=== PATIENT | male | born 1955 | race Caucasian/White ===

== ENCOUNTER 2017-09-20 15:52 | Emergency (ER) | payer OTHER ==
[~2017-09-20] VITALS: Ht 188 cm; Wt 170.0 kg
[~2017-09-20 15:52] MED LIST: ASPCH81X PO; CALC500C70 PO; CLC100 PO; DLCS PR; FRRS300 PO; FURO20TA PO; HMLI SC; INSDGI SC; LSN5 PO; MULT-506 PO
[2017-09-20 16:30] VITALS: BP 185/83; TEMP 36.9; Ht 188 cm; Wt 170.0 kg
[2017-09-20] MEDS ORDERED: EXEN1INJ3 INJ (17:40)
[2017-09-20] MEDS ORDERED: ASPI81TA28 PO (17:40)
[2017-09-20] MEDS ORDERED: METF-384 PO (17:40)
[2017-09-20] MEDS ORDERED: CALC600C9 PO (17:40)
[2017-09-20] MEDS ORDERED: ACET-1256 PO (17:40)
[2017-09-20] MEDS ORDERED: PRVHFAIN INH (17:40)
[2017-09-20] MEDS ORDERED: INSU1INJ31 SC (17:40)
[2017-09-20] MEDS ORDERED: CLC100X PO (17:40)
[2017-09-20] MEDS ORDERED: ERGO500037 PO (17:40)
[2017-09-20] MEDS ORDERED: FLUT0.15 NAE (17:40)
[2017-09-20] MEDS ORDERED: INSU1SOL SC (17:40)
[2017-09-20] MEDS ORDERED: LPT20 PO (17:40)
[2017-09-20] MEDS ORDERED: LISI40TA PO (17:40)
--- NOTE | 2017-09-20 17:49 | DIAGNOSTIC IMAGING REPORT ---
KUB HISTORY: eval for foreign body; insulin needle COMPARISON: None. FINDINGS: The bowel gas pattern is unremarkable. There are no dilated loops of small bowel to suggest an obstruction. No renal calculi. No ureteral calculi. No pneumoperitoneum or pneumatosis. No radiopaque foreign bodies identified. IMPRESSION: No radiopaque foreign bodies. Electronically signed by: Kirby Azul M.D. 09/20/2017 5:48 PM Dictated Date/Time: 09/20/2017 5:41 PM
[2017-09-20 18:19] VITALS: PULSE 104; O2SAT 96
--- NOTE | 2017-09-21 10:44 | EMERGENCY ROOM VISIT NOTE ---
ED Visit Note First contact with patient: 16:38 Chief Complaint: I think I have a insulin needle stuck in my stomach. History of Present Illness: Mr. Storm is a 62-year-old white male who is brought into the ED via wheelchair complaining of a possible needle foreign body in his abdominal wall. Patient reports approximately one hour before he arrived in the emergency department he was self injecting himself with insulin with an insulin pen. He reports he noted that the needle was bent so he strained it out and then injected himself. He then noted that when he withdrew the needle it was not on the end of the syringe. He reached down and thought he felt the needle but then later when he checked he could not find the needle. Currently he has no complaints related to this incident. He denies any abdominal pain, bleeding, signs of infection. Review of Systems: As noted above in history of present illness. Past Medical History: Coronary artery disease, diabetes, diabetic neuropathy, kidney disease, hypertension, chronic venous insufficiency, sleep apnea. Current Medications: Medications Dose Route/Sig Max Daily Dose Days Date Category Dose Instructions Tylenol (Acetaminophen) 500 Mg Tab 1,000 Mg PO TID PRN 09/20/17 Reported Flonase Allergy Relief (Fluticasone Propionate (Nasal)) 50 Mcg/Act Spr 2 Sprays NORMA DAILY 09/20/17 Reported Ventolin Hfa (Albuterol) 60 Puffs/5400 Mcg Aers 1 Puff INH QID 09/20/17 Reported Bydureon (Exenatide) 2 Mg Inj 2 Mg INJ WK 09/20/17 Reported Prinivil (Lisinopril) 40 Mg Tab 40 Mg PO QAM 09/20/17 Reported Vitamin D 62838 Unit (Ergocalciferol) 50,000 Unit Cap 50,000 Unit PO WK 09/20/17 Reported Glucophage (Metformin Hcl) 1,000 Mg Tab 1,000 Mg PO BIDM 09/20/17 Reported Lipitor (Atorvastatin Calcium) 20 Mg Tab 20 Mg PO HS 09/20/17 Reported Humulin R U-500 Kwikpen (Insulin Regular (Human)) 500 Unit/Ml Devora Unknown Dose SC DIRECTED 09/20/17 Reported UP TO 300 UNITS/DAY DIRECTED. Docusate Sodium 100 Mg Cap 100 Mg PO BID 09/20/17 Reported Calcium/Vitamin D 600-200 mg-Unit (Calcium Carbonate-Vitamin D) 1 Cap Cap 1 Tab PO DAILY 09/20/17 Reported Aspirin Ec (Aspirin) 81 Mg Tab 81 Mg PO QAM 09/20/17 Reported Humalog Kwikpen (Insulin Lispro (Human)) 200 Unit/Ml Inj Unknown Dose SC ACHS 09/20/17 Reported SLIDING SCALE UP TO 90 UNITS/DAY. Lasix (Furosemide) 20 Mg Tab 20 Mg PO DAILY 90 03/01/15 Reported Multivitamin (Multivitamins) Tab 1 Tab PO DAILY 02/11/10 Reported Allergies to Medications: Ceftriaxone, lidocaine. Social History: Patient is not employed; he feels safe in his home environment; he denies current tobacco use. Physical Examination: Vital Signs: Date Time Temp Pulse Resp B/P (MAP) Pulse Ox O2 Delivery O2 Flow Rate FiO2 09/20/17 18:19 104 16 96 09/20/17 16:30 36.9 109 22 185/83 94 Room Air GENERAL: 62-year-old male in no acute distress, chronically ill-appearing, afebrile and hemodynamically stable. NEUROLOGICAL: Awake, alert and oriented to person, place and time. Answering questions appropriately and following commands. SKIN: Warm, dry and pink. No soft tissue eruptions or trauma noted. ABDOMEN: Obese, soft and nontender. No palpable foreign bodies. Positive bowel sounds in all quadrants. No guarding, rigidity or organomegaly. ED Course: Patient is assessed as noted above. Patient's medication list was reviewed. KUB X-Rays: Were read by myself and the radiologist showing a nonspecific bowel gas pattern with no signs of obstruction. No foreign bodies identified. Patient's case was reviewed with Dr. Maldonado; we agreed on diagnostic approach , treatment, disposition and plan per Patient was educated about today's findings and instructed on his treatment plan ; he verbalizes understanding and agreement with this plan. Clinical Impression: Evaluation for abdominal wall foreign body. Disposition: Patient discharged home in stable condition; prior to departure he was reassessed and continued to be pain and symptom-free. Plan: Patient is encouraged to his current medications. Patient was encouraged to watch for infection. Patient was encouraged to follow-up with family physician as needed. Patient was encouraged return ED for any signs of infection, abdominal pain or any new/concerning symptoms.
== END 2017-09-20 18:20 | disposition home or self-care (01) ==
LOC: C.EDB 15:53 → C.EDD 18:20
DX: Z04.3 Encounter for examination and observation following other accident (principal); I25.10 Atherosclerotic heart disease of native coronary artery without angina pectoris; E11.40 Type 2 diabetes mellitus with diabetic neuropathy, unspecified; Z79.84 Long term (current) use of oral hypoglycemic drugs; Z79.4 Long term (current) use of insulin; Z79.82 Long term (current) use of aspirin; I10 Essential (primary) hypertension; Z79.899 Other long term (current) drug therapy

== ENCOUNTER 2019-05-26 12:35 | Inpatient (IN) ==
--- OUTSIDE RECORDS SUMMARY | 2019-05-26 12:40 | External Medical Summary | Continuity of Care Document ---
:1955 Author Name Baldomero Rand Address Unavailable Unavailable , Care Team Providers Name Role Phone Tone Rand SMonica Unavailable [email or web address] Katina LEE Unavailable Unavailable Unavailable Unavailable Unavailable Problems Active medical history not documented Allergies and Adverse Reactions Allergy history not documented Medications Medications not documented Procedures Procedures not documented Immunizations Immunizations not documented Plan of Treatment Planned Observations Planned Goals not documented Results No Known Results Results not documented
[2019-05-26] MEDS ORDERED: ALBUT/IPRATROP 3MG/0.5MG NEB 3 ML VIAL NEB STA (13:21)
--- NOTE | 2019-05-26 13:38 | XRay Report ---
XR chest 1V portable CLINICAL HISTORY: Dyspnea. COMPARISON STUDY: Chest radiograph October 16, 2011. FINDINGS: There is no pneumothorax. There are suspected small bilateral pleural effusions. Right basi lar opacity favors atelectasis. Interstitial thickening favors pulmonary edema. Mild cardiomegaly is noted. Mediastinal contours are otherwise normal. There is no pneumothorax. IMPRESSION: 1. Interstitial thickening suggestive of mild pulmonary edema. 2. Small bilateral pleural effusions with bibasilar opacities favor atelectasis. Radiographic follow- up to ensure resolution is recommended. 2. Mild cardiomegaly. Electronically signed by: Saji Dunham M.D. 05/26/2019 1:36 PM
[2019-05-26 14:34] LABS: Alanine Aminotransferase 20 U/L (12-78); Albumin Level 3.2 gm/dl (3.4-5.0); Aspartate Aminotransferase 46 U/L (15-37); BUN Creatinine Ratio 13.2 (10-20); Basophils # (auto) 0.02 K/uL (0-0.2); Basophils % (auto) 0.2 %; Blood Urea Nitrogen 17 mg/dl (7-18); Calcium 9.1 mg/dl (8.5-10.1); Carbon Dioxide 25 mmol/L (21-32); Chloride 105 mmol/L (98-107); Eosinophils # (auto) 0.02 K/uL (0-0.5); Eosinophils % (auto) 0.2 %; Est GFR (African American) 70.2; Est GFR (Non-African American) 60.6; Glucose 136 mg/dl (70-99); Hematocrit (blood only) 45.8 % (42-52); Hemoglobin 15.1 g/dL (14.0-18.0); Immature Granulocytes # (auto) 0.03 K/uL (0.00-0.02); Immature Granulocytes % (auto) 0.2 %; Lymphocytes # (auto) 1.72 K/uL (1.2-3.4); Lymphocytes % (auto) 14.1 %; Mean Corpuscular Hemoglobin 28.8 pg (25-34); Mean Corpuscular Volume 87.4 fL (80-100); Mean Platelet Volume 12.3 fL (7.4-10.4); Monocytes # (auto) 1.02 K/uL (0.11-0.59); Monocytes % (auto) 8.3 %; Neutrophils # (auto) 9.41 K/uL (1.4-6.5); Platelet Count 164 K/uL (130-400); RDW Coefficient of Variation 13.7 % (11.5-14.5); RDW Standard Deviation 43.7 fL (36.4-46.3); Red Blood Count 5.24 M/uL (4.7-6.1); Sodium 138 mmol/L (136-145); White Blood Count 12.22 K/uL (4.8-10.8)
[2019-05-26 14:47] LABS: Albumin Globulin Ratio 0.9 (0.9-2); Alkaline Phosphatase 94 U/L (45-117); Bilirubin,Total 0.9 mg/dl (0.2-1); Globulin 3.7 gm/dl (2.5-4.0); NT Pro B Type Natriuretic Pept 1509 pg/ml (0-900); Total Protein 6.9 gm/dl (6.4-8.2)
[2019-05-26] MEDS ORDERED: ASPIRIN 81 MG CHEW PO STA (14:59)
[2019-05-26 15:20] LABS: INR 1.1 (0.9-1.1); Prothrombin Time 10.9 Seconds (9.0-12.0)
--- NOTE | 2019-05-26 15:21 | Emergency Department Note ---
ED Visit Note The patient was seen and examined with Dana Chatterjee PA-C. I agree with the history, physical and findings. Please see the note for disposition and details. Patient has intermittent breathing issues. His ECG is abnormal. The patient's troponin is elevated to 7. CT PE study was performed. .
[2019-05-26] MEDS ORDERED: OPTIRAY 320 125ml IV PRN (16:24)
[2019-05-26] MEDS ORDERED: HEPARIN SOD (PORCINE) 1000 UNIT/ML 10 ML VIAL IV ONE (16:30)
--- NOTE | 2019-05-26 16:34 | CT Scan Report ---
CT ANGIOGRAM OF THE CHEST CLINICAL HISTORY: shortness of breath, elevated troponin COMPARISON STUDY: Chest x-ray dated 05/26/2019 TECHNIQUE: Following the IV administration of 118 mL of Optiray-320, CT angiogram of the thorax was p erformed from the thoracic inlet to the lung bases utilizing the pulmonary embolus protocol. Images a re reviewed in the axial, sagittal, and coronal planes. IV contrast was administered without complica tion. MIP imaging was performed. A dose lowering technique was utilized adhering to the principles o f ALARA. CT DOSE: 925.11 mGy.cm FINDINGS: There are multiple mildly enlarged mediastinal lymph nodes. There is no pathologic hilar adenopathy. There was no evidence of thoracic aortic dilatation. There were no pulmonary artery filling defects to indicate acute pulmonary embolism. There are [id number] bilateral pleural effusions. There are dependent airspace opacities, likely representing compressive atelectasis. IMPRESSION: 1. No evidence of acute pulmonary embolism. 2. [id number] bilateral pleural effusions. Associated dependent airspace opacities, likely ate lectatic. 3. Mildly enlarged mediastinal lymph nodes. Electronically signed by: Pablo Moreno M.D. 05/26/2019 4:33 PM
[2019-05-26] MEDS ORDERED: FUROSEMIDE 40 MG/4 ML VIAL IV STA (17:00)
[2019-05-26] MEDS: HEPARIN SODIUM/DEXTROSE 25,000 UNITS/500 ML BAG IV SCH ×3 (17:11→21:00)
[2019-05-26 17:32] LABS: Partial Thromboplastin Ratio 1.1; Partial Thromboplastin Time 30.5 Seconds (21.0-31.0)
--- NOTE | 2019-05-26 17:37 | Emergency Department Note ---
History of Present Illness General Chief complaint: Shortness of Breath/Dyspnea Stated complaint: EXTREME SOB Source: patient Mode of arrival: ambulatory Limitations: no limitations History of Present Illness This patient is a 63-year-old male with past medical history of diabetes mellitus and right BKA who presents the emergency department for evaluation of shortness of breath. Patient states that he has been having some trouble breath ing at times for the past few years. He states he has had some episodes of shortness of breath when he is exerting himself, for example when he is getting into his van to go to an appointment. The patient is fairly wheelchair dependent due to a right BKA and left chronic diabetic wound. He states that he typically only gets out of the wheelchair to go somewhere or transfer to the bathroom. The patient does have an intermittent cough. He has been using a Ventolin inhaler and Flonase nasal spray. He also reports some sneezing with clear mucus. Patient also states he has been bloated recently and has had a decreased appetite. He is on MiraLAX for constipation. Patient admits that recently, he had a few weeks where he was not taking his medications due to his sons not filling his prescription packs. He has neuropathy and has difficulty opening the bottles. He states that he is taking his medications now. He takes 20 mg of Lasix daily and occasionally doubles this when he feels he needs it. Patient has seen a welt sewer several years ago but denies any cardiac history. He states that the primary reason he is here today is because he has had shortness of breath and an upset stomach for the past 2 days. He called the primary care provider's office today and they told him to come here because it sounded like he was short of breath on the phone. He denies chest pain, fevers or vomiting. He does not regularly weigh himself. Home Medications Home Medications Medication Instructions Recorded Confirmed Type Humulin R U-500 (Conc) Insulin 85 unit SUBCUT TID 05/26/19 05/26/19 History albuterol sulfate [Ventolin HFA] 2 puff INHALATION QID PRN 05/26/19 05/26/19 History aspirin 81 mg PO DAILY 05/26/19 05/26/19 History docusate sodium 100 mg PO BID 05/26/19 05/26/19 History ergocalciferol (vitamin D2) 50,000 unit PO WK 05/26/19 05/26/19 History [Vitamin D2] insulin lispro [Humalog KwikPen 0 unit SUBCUT UD 05/26/19 05/26/19 History Insulin] lisinopril 40 mg PO DAILY 05/26/19 05/26/19 History multivitamin 1 tab PO DAILY 05/26/19 05/26/19 History atorvastatin 40 mg PO QAM 30 Days #30 tab 05/27/19 Rx metoprolol tartrate 25 mg PO BID 30 Days #60 tab 05/27/19 Rx Allergies Allergy/AdvReac Type Severity Reaction Status Date / Time ceftriaxone Allergy Severe ANAPHYLAXIS Verified 05/26/19 14:46 lidocaine Allergy Severe ANAPHYLAXIS Verified 05/26/19 14:46 -BRADYCARDI A Past Med/Surg History Medical History Morbid obesity (Chronic) Charcot ankle (Chronic) CKD (chronic kidney disease), stage III (Chronic) Diabetes mellitus, type II (Chronic) Dyslipidemia (Chronic) HTN (hypertension) (Chronic) Type 2 diabetes mellitus Surgical History History of right below knee amputation (Chronic) Below knee amputation Family History Other Cancer Coronary heart disease Diabetes Social History Preferred Language: [place] Citizen Communication Ability: Effective 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 Beliefs That Will Affect Care: None marital status: Current Living Situation: Family Other Information That Helps Us Care for You: No Feels Safe at Home: Yes Safety Concerns: Feels Safe At This Time Smoking Status: Never smoker Tobacco Type: smokeless tobacco ; Do You Dip or Chew Tobacco: Yes ; Second Hand Exposure: No ; Tobacco Cessation Education Requested by Patient: No Hx Alcohol Use: No Hx Substance Use: No Review of Systems A total of 10 systems reviewed and were otherwise negative Physical Exam Vital Signs Vital Signs - 24 hr 05/26/19 13:33 05/26/19 14:09 05/26/19 14:38 Pulse Rate [Left Finger] 89 Pulse Rhythm [Left Finger] Regular Respiratory Rate 18 20 Respiratory Effort / Characteristics Non-Labored Spontaneous Non-Labored Respiratory Depth Normal Respiratory Pattern Regular Blood Pressure [Right Arm] 149/94 H Blood Pressure Mean [Right Arm] 112 Pulse Oximetry 94 94 92 Oxygen Delivery Method Room Air Room Air Room Air 05/26/19 16:00 05/26/19 17:23 Pulse Rate [Left Finger] 82 86 Pulse Rhythm [Left Finger] Respiratory Rate 15 20 Respiratory Effort / Characteristics Non-Labored Non-Labored Respiratory Depth Normal Normal Respiratory Pattern Regular Regular Blood Pressure [Right Arm] 153/90 H 130/76 Blood Pressure Mean [Right Arm] 111 94 Pulse Oximetry 93 95 Oxygen Delivery Method Room Air Room Air VITALS: Vitals are noted on the nurse's note and reviewed by myself. Vital signs stable. GENERAL: This is a 63-year-old obese male, in no acute distress. Patient is sitting up in his wheelchair at bedside. SKIN: The skin was warm and dry, without rashes. HEAD: Normocephalic atraumatic. EARS: External auditory canals clear, tympanic membranes pearly anderson without erythema or effusion bilaterally. EYES: Pupils equal round and reactive to light and accommodation. NOSE: Patent, turbinates without inflammation or discharge. MOUTH: Mucous membranes moist. Tonsils are not enlarged. Pharynx without erythema or exudate. NECK: Supple without nuchal rigidity. No lymphadenopathy. HEART: Regular rate and rhythm without murmurs gallops or rubs. LUNGS: Decreased breath sounds bilateral bases. No wheezing. ABDOMEN: Positive bowel sounds x 4. Soft, nontender to palpation. EXTREMITIES: Right lower leg prosthetic. Left lower leg in a Cam boot. NEURO: Patient was alert and oriented to person place and time. Course Consultations Consultation #1: Lucila Rowan PA-C - [facility] hospitalist Consultation #2: Dr. Estrella - cardiology Dr. Estrella recommended adding 40 mg IV Lasix and agreed with continuing the Heparin drip. Administered Medications Discontinued Medications Acetaminophen (Tylenol) 650 mg PO Q4H PRN PRN Reason: Pain or Fever Stop: 06/25/19 19:33 Last Admin: 05/27/19 05:04 Dose: 650 mg Documented by: [id number] Admin: 05/26/19 21:32 Dose: 650 mg Documented by: [id number] Albuterol (Duoneb) 3 ml NEB NOW STA Stop: 05/26/19 13:22 Last Admin: 05/26/19 13:31 Dose: Not Given Documented by: [id number] Albuterol (Ventolin 0.083% 2.5mg/3ml) 2.5 mg NEB Q6R PRN PRN Reason: Shortness Of Breath Or Wheezing Stop: 06/25/19 19:33 Last Admin: 05/26/19 21:06 Dose: 2.5 mg Documented by: [id number] Aspirin (Aspirin Chew) 162 mg PO NOW STA Stop: 05/26/19 15:00 Last Admin: 05/26/19 15:27 Dose: 162 mg Documented by: [id number] Aspirin (Ecotrin Ectab) 81 mg PO DAILY MCKAYLA Stop: 06/26/19 08:59 Last Admin: 05/27/19 08:49 Dose: 81 mg Documented by: [id number] Atorvastatin Calcium (Lipitor) 20 mg PO HS MCKAYLA Stop: 06/25/19 20:59 Last Admin: 05/26/19 20:56 Dose: 20 mg Documented by: [id number] Atorvastatin Calcium (Lipitor) 40 mg PO QAM MCKAYLA Stop: 06/26/19 15:44 Last Admin: 05/27/19 16:22 Dose: 40 mg Documented by: [id number] Bismuth Subsalicylate (Pepto-Bismol) 30 ml PO Q6H PRN PRN Reason: Diarrhea Stop: 06/26/19 05:37 Last Admin: 05/27/19 05:52 Dose: 30 ml Documented by: [id number] Dextrose (Dextrose 50%) 25 - 50 ml IV UD PRN; Protocol PRN Reason: Hypoglycemia Protocol Stop: 06/25/19 19:33 Last Admin: 05/27/19 06:21 Dose: 50 ml Documented by: [id number] Docusate Sodium (Colace) 100 mg PO BID MCKAYLA Stop: 06/25/19 20:59 Last Admin: 05/27/19 08:48 Dose: Not Given Documented by: [id number] Admin: 05/26/19 20:55 Dose: 100 mg Documented by: [id number] Furosemide (Lasix) 40 mg IV NOW STA Stop: 05/26/19 17:01 Last Admin: 05/26/19 19:09 Dose: 40 mg Documented by: [id number] Furosemide (Lasix) Confirm Administered Dose 40 mg IV .STK-MED ONE Stop: 05/26/19 19:08 Last Admin: 05/26/19 20:04 Dose: Not Given Documented by: [id number] Heparin Sodium (Porcine) (Heparin Iv Bolus) 10,000 units IV NOW ONE Stop: 05/26/19 16:31 Last Admin: 05/26/19 17:11 Dose: 10,000 units Documented by: [id number] Cosigned by: [id number] Heparin Sodium/Dextrose () 1 ea IV NOW STA; Protocol Stop: 05/26/19 15:00 Last Admin: 05/26/19 17:11 Dose: Not Given Documented by: [id number] Heparin Sodium/Dextrose () 1 ea IV Q30M MCKAYLA; Protocol Stop: 05/26/19 23:00 Last Admin: 05/26/19 20:13 Dose: Not Given Documented by: [id number] Admin: 05/26/19 20:13 Dose: Not Given Documented by: [id number] Heparin Sodium/Dextrose (Heparin Sodium/Dextrose) 25,000 units in 500 mls @ 44 mls/hr IV .[id number] MCKAYLA; Protocol Stop: 06/25/19 14:59 Last Titration: 05/26/19 21:01 Dose: 0 units/hr, 0 mls/hr Documented by: [id number] Cosigned by: [id number] Admin: 05/26/19 19:31 Dose: 2,200 units/hr, 44 mls/hr Documented by: [id number] Cosigned by: [id number] Titration: 05/26/19 19:31 Dose: 2,200 units/hr, 44 mls/hr Documented by: [id number] Cosigned by: [id number] Admin: 05/26/19 17:11 Dose: 2,200 units/hr, 44 mls/hr Documented by: [id number] Cosigned by: [id number] Furosemide 20 mg/ Syringe 2 mls @ 4 mls/min IV ONE ONE Stop: 05/27/19 09:01 Last Admin: 05/27/19 08:48 Dose: 4 mls/min Documented by: [id number] Heparin Sodium/Dextrose (Heparin Sodium/Dextrose) 25,000 units in 500 mls @ 39 mls/hr IV .[id number] MCKAYLA; Protocol Stop: 06/25/19 19:33 Last Titration: 05/27/19 08:12 Dose: 1,950 units/hr, 39 mls/hr Documented by: [id number] Cosigned by: [id number] Titration: 05/27/19 07:14 Dose: 1,950 units/hr, 39 mls/hr Documented by: [id number] Cosigned by: [id number] Admin: 05/27/19 06:04 Dose: 1,950 units/hr, 39 mls/hr Documented by: [id number] Cosigned by: [id number] Titration: 05/27/19 06:04 Dose: 1,950 units/hr, 39 mls/hr Documented by: [id number] Cosigned by: [id number] Titration: 05/27/19 00:53 Dose: 1,950 units/hr, 39 mls/hr Documented by: [id number] Cosigned by: [id number] Titration: 05/26/19 23:42 Dose: 0 units/hr, 0 mls/hr Documented by: [id number] Cosigned by: [id number] Titration: 05/26/19 23:40 Dose: 1,950 units/hr, 39 mls/hr Documented by: [id number] Cosigned by: [id number] Titration: 05/26/19 23:03 Dose: 2,200 units/hr, 44 mls/hr Documented by: [id number] Cosigned by: [id number] Admin: 05/26/19 21:00 Dose: 2,200 units/hr, 44 mls/hr Documented by: [id number] Cosigned by: [id number] Insulin Human Regular 60 units (/ Syringe) 0.12 mls @ 0 mls/sec SC TODAY@2100 ONE Stop: 05/26/19 21:01 Last Admin: 05/26/19 20:58 Dose: 1 mls/sec Documented by: [id number] Cosigned by: [id number] Influenza Virus Vaccine Quadrival (Flucelvax Quad Vaccine) 0.5 ml IM .ONCE ONE Stop: 05/27/19 09:01 Last Admin: 05/27/19 13:15 Dose: Not Given Documented by: [id number] Insulin Aspart (Novolog Flexpen) 0 units SC ACHS MCKAYLA; Protocol Stop: 06/25/19 20:59 Last Admin: 05/26/19 21:00 Dose: 4 units Documented by: [id number] Cosigned by: [id number] Insulin Aspart (Novolog Flexpen) 0 units SC Q4 MCKAYLA; Protocol Stop: 06/26/19 07:59 Last Admin: 05/27/19 12:02 Dose: Not Given Documented by: [id number] Cosigned by: [id number] Admin: 05/27/19 08:11 Dose: Not Given Documented by: [id number] Cosigned by: [id number] Insulin Human NPH (Novolin N U-100 Nph Per Unit) 50 units SQ ONE ONE; Protocol Stop: 05/27/19 16:01 Last Admin: 05/27/19 15:57 Dose: 50 units Documented by: [id number] Cosigned by: [id number] Ioversol (Optiray 320 125ml) 118 ml IV ONCE PRN PRN Reason: Interaction Checking Stop: 05/30/19 16:23 Last Admin: 05/26/19 16:24 Dose: 118 ml Documented by: [id number] Lisinopril (Zestril) 40 mg PO DAILY MCKAYLA Stop: 06/26/19 08:59 Last Admin: 05/27/19 08:49 Dose: 40 mg Documented by: [id number] Menthol (Nice) 1 joselo BUCCAL NOW STA Stop: 05/26/19 18:11 Last Admin: 05/26/19 20:56 Dose: 1 joselo Documented by: [id number] Menthol (Nice) Confirm Administered Dose 24 joselo BUCCAL .STK-MED ONE Stop: 05/26/19 18:14 Last Admin: 05/26/19 18:15 Dose: 24 joselo Documented by: [id number] Metoprolol Tartrate (Lopressor) 25 mg PO BID MCKAYLA Stop: 06/26/19 15:09 Last Admin: 05/27/19 16:23 Dose: 25 mg Documented by: [id number] Multivitamins (Multivitamin Tab) 1 tab PO DAILY MCKAYLA Stop: 06/26/19 08:59 Last Admin: 05/27/19 08:49 Dose: 1 tab Documented by: [id number] Pneumococcal Polyvalent Vaccine (Pneumovax-23) 25 mcg IM .ONCE ONE Stop: 05/27/19 09:01 Last Admin: 05/27/19 13:15 Dose: Not Given Documented by: [id number] Sennosides (Senokot) 8.6 mg PO BID MCKAYLA Stop: 06/26/19 08:59 Last Admin: 05/27/19 08:48 Dose: Not Given Documented by: [id number] Medical Decision Making Differential Diagnosis Differential diagnosis includes acute coronary syndrome, pulmonary embolism, pneumothorax, CHF, COPD exacerbation, pneumonia, among others. Medical Records Attestation: I reviewed the patient's medical records. Outside [facility] records reviewed Home Medications Current Medication List: was personally reviewed by me Laboratory Data Attestation: I reviewed the patient's lab results. Result diagrams: 05/27/19 01:40 05/27/19 12:28 Lab Results 05/26/19 05/26/19 05/26/19 Range/Units 13:45 13:50 13:50 WBC 12.22 H (4.8-10.8) K/uL RBC 5.24 (4.7-6.1) M/uL Hgb 15.1 (14.0-18.0) g/dL Hct 45.8 (42-52) % MCV 87.4 (80-100) fL MCH 28.8 (25-34) pg MCHC 33.0 (32-36) g/dL RDW Std Deviation 43.7 (36.4-46.3) fL RDW Coeff of Yonis 13.7 (11.5-14.5) % Plt Count 164 (130-400) K/uL MPV 12.3 H (7.4-10.4) fL Immature Gran % (Auto) 0.2 % Neut % (Auto) 77.0 % Lymph % (Auto) 14.1 % [place] % (Auto) 8.3 % Eos % (Auto) 0.2 % Baso % (Auto) 0.2 % Immature Gran # (Auto) 0.03 H (0.00-0.02) K/uL Neut # (Auto) 9.41 H (1.4-6.5) K/uL Lymph # (Auto) 1.72 (1.2-3.4) K/uL [place] # (Auto) 1.02 H (0.11-0.59) K/uL Eos # (Auto) 0.02 (0-0.5) K/uL Baso # (Auto) 0.02 (0-0.2) K/uL PT (9.0-12.0) Seconds INR (0.9-1.1) APTT (21.0-31.0) Seconds PTT Ratio Sodium 138 (136-145) mmol/L Potassium 4.0 (3.5-5.1) mmol/L Chloride 105 (98-107) mmol/L Carbon Dioxide 25 (21-32) mmol/L Anion Gap 9.0 (3-11) BUN 17 (7-18) mg/dl Creatinine 1.27 (0.6-1.4) mg/dl Est Cr Clr Drug Dosing Not Reportable Est GFR ( Amer) 70.2 Est GFR (Non-Af Amer) 60.6 BUN/Creatinine Ratio 13.2 (10-20) Glucose 136 H (70-99) mg/dl Calcium 9.1 (8.5-10.1) mg/dl Total Bilirubin 0.9 (0.2-1) mg/dl AST 46 H (15-37) U/L ALT 20 (12-78) U/L Alkaline Phosphatase 94 (45-117) U/L Troponin I 7.010 H* (0-0.045) ng/ml NT-Pro-B Natriuret Pep 1509 H (0-900) pg/ml Total Protein 6.9 (6.4-8.2) gm/dl Albumin 3.2 L (3.4-5.0) gm/dl Globulin 3.7 (2.5-4.0) gm/dl Albumin/Globulin Ratio 0.9 (0.9-2) Procalcitonin (0-0.5) ng/ml Influenza Type A Ag Neg for Influ A (Neg) Influenza Type B Ag Neg for Influ B (Neg) 05/26/19 05/26/19 05/26/19 Range/Units 13:50 13:50 13:50 WBC (4.8-10.8) K/uL RBC (4.7-6.1) M/uL Hgb (14.0-18.0) g/dL Hct (42-52) % MCV (80-100) fL MCH (25-34) pg MCHC (32-36) g/dL RDW Std Deviation (36.4-46.3) fL RDW Coeff of Yonis (11.5-14.5) % Plt Count (130-400) K/uL MPV (7.4-10.4) fL Immature Gran % (Auto) % Neut % (Auto) % Lymph % (Auto) % [place] % (Auto) % Eos % (Auto) % Baso % (Auto) % Immature Gran # (Auto) (0.00-0.02) K/uL Neut # (Auto) (1.4-6.5) K/uL Lymph # (Auto) (1.2-3.4) K/uL [place] # (Auto) (0.11-0.59) K/uL Eos # (Auto) (0-0.5) K/uL Baso # (Auto) (0-0.2) K/uL PT 10.9 (9.0-12.0) Seconds INR 1.1 (0.9-1.1) APTT 30.5 (21.0-31.0) Seconds PTT Ratio 1.1 Sodium (136-145) mmol/L Potassium (3.5-5.1) mmol/L Chloride (98-107) mmol/L Carbon Dioxide (21-32) mmol/L Anion Gap (3-11) BUN (7-18) mg/dl Creatinine (0.6-1.4) mg/dl Est Cr Clr Drug Dosing Est GFR ( Amer) Est GFR (Non-Af Amer) BUN/Creatinine Ratio (10-20) Glucose (70-99) mg/dl Calcium (8.5-10.1) mg/dl Total Bilirubin (0.2-1) mg/dl AST (15-37) U/L ALT (12-78) U/L Alkaline Phosphatase (45-117) U/L Troponin I (0-0.045) ng/ml NT-Pro-B Natriuret Pep (0-900) pg/ml Total Protein (6.4-8.2) gm/dl Albumin (3.4-5.0) gm/dl Globulin (2.5-4.0) gm/dl Albumin/Globulin Ratio (0.9-2) Procalcitonin 0.09 (0-0.5) ng/ml Influenza Type A Ag (Neg) Influenza Type B Ag (Neg) Imaging Data Attestation: I personally reviewed and interpreted this imaging study as follows: Radiologist's Impression: XR chest 1V portable IMPRESSION: 1. Interstitial thickening suggestive of mild pulmonary edema. 2. Small bilateral pleural effusions with bibasilar opacities favor atelectasis. Radiographic follow-up to ensure resolution is recommended. 2. Mild cardiomegaly. CT ANGIOGRAM OF THE CHEST IMPRESSION: 1. No evidence of acute pulmonary embolism. 2. [id number] bilateral pleural effusions. Associated dependent airspace opacities, likely atelectatic. 3. Mildly enlarged mediastinal lymph nodes. ECG Data Attestation: I personally reviewed and interpreted this ECG as follows: Indication: SOB/dyspnea Rate (beats per minute): 82 Rhythm: normal sinus Findings: + LBBB, + PAC and + ST depression (Inferior) Comparison ECG Date: from (2011) Change: the following changes noted (new LBBB) Blood Pressure Blood Pressure Findings: Elevated blood pressure Blood Pressure Disposition: elevated BP felt to be situational MDM Narrative The patient is a 63-year-old male who presents today complaining of shortness of breath. Patient has been having intermittent shortness of breath for some time. He apparently had an episode more severe symptoms this morning. He is not significantly symptomatic on arrival to the emergency department. Chest x-ray shows some pulmonary edema. Labs revealed no leukocytosis or concerning anemia. Troponin was found to be significantly elevated at 7.01. BNP elevated at 1509. CT of the chest was performed and shows no evidence of PE. Patient reevaluated multiple times and at no time had any chest pain or acute symptoms while at the emergency department. His EKG does show a new left bundle branch block, however the most recent comparison is from 2011. The case was discussed with the welt sewer on-call, who recommended adding a dose of Lasix. The case was then discussed with the [facility]ist service to evaluate the patient for further care. The patient was independently evaluated by Dr. Chapa, who agreed with my assessment and treatment plan. Impression & Plan NSTEMI (non-ST elevated myocardial infarction), LBBB (left bundle branch block), Shortness of breath Critical Care Time Critical Care Time: Yes Total Critical Care Time: 40 I have personally spent greater than 40 minutes of critical care time in the direct management of this patient. This includes bedside care, interpretation of diagnostic studies, and testing, discussion with consultants, patient, and family members, and other required patient management activities. This 40 minutes is in excess of all separately billable procedures. Discharge Plan Visit Data *Final* Discharge Date/Time: 05/26/19 19:00 Chief Complaint: Shortness of Breath/Dyspnea Stated Complaint: EXTREME SOB ED Provider: Maciejczyk,Jj F ED Midlevel Provider: Dana Chatterjee Discharge Problem: NSTEMI (non-ST elevated myocardial infarction), LBBB (left bundle branch block), Shortness of breath Patient Disposition: Admitted As Inpatient Condition: Fair Discharge Instructions Interventions: ED Discharge Assessment Last Done: 05/26/19 19:00
--- NOTE | 2019-05-26 18:04 | History & Physical Report ---
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 Reports cough sometimes productive of clear sputum x several months. Patient reports some orthopnea past several days, denies any PND, fever or chills. No current CP and no Current SOB. Reports CP and upper body pain after falling asleep in wheelchair 2 days ago that resolved with position change In ER afebrile, P: 85, R: 20, BP: 160/90, 97% on RA. WBC: 12, H/H: 15/45, troponin: 7.0. EKG 82, sinus rhythm, incomplete LBBB. prior ekg from 2011 without LBBB CTA CHEST: No evidence of acute pulmonary embolism. [id number] bilateral pleural effusions. Associated dependent airspace opacities, likely atelectatic. Mildly enlarged mediastinal lymph nodes. -In ER given aspirin, Heparin IV started -Will continue Heparin IV -Repeat EKG in am -Will trend troponin -Echo -Lipid panel in am, continue statin -Aspirin -Resume lisinopril -Consider starting metoprolol when appropriate -Nitro prn CP and repeat EKG for CP -Cardiology consult, ER contacted presser [employer] who recommended dose IV lasix, continue heparin (3) Fluid overload: Increased SOB past couple of days. No fever/chills BNP: 1500, normal lactate, normal procalcitonin CXR Interstitial thickening suggestive of mild pulmonary edema. Small bilateral pleural effusions with bibasilar opacities favor atelectasis. -In ER given Lasix 40mg IV -IV lasix tomorrow am -Monitor I&O's, daily weights -Discussed importance of proper output measurement and pt doesn't feel can use urinal easily and denies henson catheter -Echo -CBC, BMP in AM -Cardiology consult (4) Diabetes mellitus, type II: Insulin-dependent A1c: 8.6 on 12/2018 -Hold metformin -Patient on Humulin R U-500 as well as sliding scale, consult glycemic pharmacist for assistance and glycemic management (5) HTN (hypertension): Initial BP in ER 160/90. Pt has not been taking home medications -resume lisinopril (6) Dyslipidemia: Lipid panel in am -resume statin (7) CKD (chronic kidney disease), stage III: CR: 1.27. Baseline 1.3 -Monitor renal function -Nephrotoxic agents and possible (8) Morbid obesity: BMI: 52 -Lifestyle modifications recommended (9) History of right below knee amputation: History Charcot ankle s/p R BKA DVT Prophylaxis -On Heparin IV DNR/DNI as per discussion with pt Follows with Dr Snider for routine care Pt was seen and care coordinated with Dr Connor. See addendum History of Present Illness Chief Complaint: SOB Primary Care Provider: Dion Snider MD Pt is 63 y/o M with PMH HTN, DM II, dyslipidemia, CKD III, h/o R BKA secondary to Charcot joint, obesity presented to ER with c/o SOB. Pt poor historian. Reports intermittent SOB with transferring himself out of wheelchair for several months. Pt is mostly wheelchair dependent. Reports he believes he has had worsening shortness of breath over the past week. Reports cough sometimes productive of clear sputum over the past several months. Patient reports some orthopnea past several days, denies any PND. Patient reports 2 days ago he fell asleep in his wheelchair and when he woke up he had bilateral shoulder, bilateral arm pain, back pain, anterior chest pain which all improved after sitting up in chair for several minutes. Denies any other chest pain. Patient reports some intermittent nausea over the past week also. Patient reports that he has not been taking his medications as prescribed including his diuretics, as his sons have not been filling his pillbox for him, patient reports difficulty opening up pill bottles secondary to his chronic neuropathy. Patient with lymphedema lower extremity and follows with PT for lymphedema therapy however has not followed up for the past 4 weeks. Patient is unsure if he has had any increased lower extremity edema. Chronic constipation and uses stool softeners daily. Last BM 1 day ago. Denies fever/chills, diaphoresis, V/D, VORA, dizziness, syncope, vision changes, neck pain, palpitations, sore throat, choking, otalgia, rhinorrhea, abdominal pain, rashes, urinary symptoms. Patient denies any known coronary artery disease or CHF. Allergies Allergy/AdvReac Type Severity Reaction Status Date / Time ceftriaxone Allergy Severe ANAPHYLAXIS Verified 05/26/19 14:46 lidocaine Allergy Severe ANAPHYLAXIS Verified 05/26/19 14:46 -BRADYCARDI A Home Medications Home Medications Medication Instructions Recorded Confirmed Type acetaminophen 500 mg PO Q6H PRN 05/26/19 05/26/19 History albuterol sulfate [Ventolin HFA] 2 puff INHALATION QID PRN 05/26/19 05/26/19 History aspirin 81 mg PO DAILY 05/26/19 05/26/19 History atorvastatin 20 mg PO HS 05/26/19 05/26/19 History docusate sodium 100 mg PO BID 05/26/19 05/26/19 History ergocalciferol (vitamin D2) 50,000 unit PO WK 05/26/19 05/26/19 History [Vitamin D2] furosemide 20 mg PO DAILY 05/26/19 05/26/19 History insulin lispro [Humalog KwikPen 0 unit SUBCUT UD 05/26/19 05/26/19 History Insulin] insulin regular hum U-500 conc 85 unit SUBCUT TID 05/26/19 05/26/19 History [Humulin R U-500 (Conc) Insulin] lisinopril 40 mg PO DAILY 05/26/19 05/26/19 History metformin 1,000 mg PO BID 05/26/19 05/26/19 History multivitamin 1 tab PO DAILY 05/26/19 05/26/19 History Past Med/Surg History Medical History Morbid obesity (Chronic) Charcot ankle (Chronic) CKD (chronic kidney disease), stage III (Chronic) Diabetes mellitus, type II (Chronic) Dyslipidemia (Chronic) HTN (hypertension) (Chronic) Type 2 diabetes mellitus Surgical History History of right below knee amputation (Chronic) Below knee amputation Family History Other Cancer Coronary heart disease Diabetes Social History Preferred Language: Samoan Communication Ability: Effective Mechatronics Technician Required: No Beliefs That Will Affect Care: None Current Living Situation: Family Other Information That Helps Us Care for You: No Feels Safe at Home: Yes Safety Concerns: Feels Safe At This Time Smoking Status: Never smoker Tobacco Type: smokeless tobacco ; Do You Dip or Chew Tobacco: Yes ; Second Hand Exposure: No ; Tobacco Cessation Education Requested by Patient: No Hx Alcohol Use: No Hx Substance Use: No Review of Systems Review of Systems: All systems reviewed & are unremarkable except as noted in HPI & below Physical Exam Physical Exam: General: no acute distress, obese Head: normocephalic, atraumatic Eyes: PERRL, EOM's intact, conjunctiva non-injected, anicteric ENT: normal inspection external ears, nose, mucous membranes moist Neck: supple, trachea midline Lungs: clear, no respiratory distress, no wheezing/rhonchi/rales CV: RRR, no murmur Abd: normal BS, soft, non-tender Ext: Right below knee amputation with prosthetic sleeve in place. upper left leg with some edema (pt reports chronic) Left lower leg and foot with ortho boot in place. Pt will not allow boot or sleeve to be removed to evaluate skin, edema or distal pulses. Neuro: A&O x 3, no focal deficits noted, normal affect Skin: warm, dry Results & Data Vital Signs (Past 12 Hours) Vital Signs Temp Pulse Pulse Resp BP BP Pulse Ox 05/26/19 17:23 86 20 130/76 95 05/26/19 16:00 82 15 153/90 H 93 05/26/19 14:38 89 20 149/94 H 92 05/26/19 14:09 94 05/26/19 13:33 18 94 05/26/19 12:40 36.7 C 85 20 160/90 H 97 Laboratory Results Short CBC 05/26/19 Range/Units 13:50 WBC 12.22 H (4.8-10.8) K/uL Hgb 15.1 (14.0-18.0) g/dL Hct 45.8 (42-52) % Plt Count 164 (130-400) K/uL BMP 05/26/19 13:50 Sodium 138 Potassium 4.0 Chloride 105 Carbon Dioxide 25 BUN 17 Creatinine 1.27 Glucose 136 H Calcium 9.1 Cardiac Enzymes 05/26/19 Range/Units 13:50 Troponin I 7.010 H* (0-0.045) ng/ml Liver Function 05/26/19 Range/Units 13:50 Total Bilirubin 0.9 (0.2-1) mg/dl AST 46 H (15-37) U/L ALT 20 (12-78) U/L Alkaline Phosphatase 94 (45-117) U/L Albumin 3.2 L (3.4-5.0) gm/dl Diagnostic Findings CXR: IMPRESSION: 1. Interstitial thickening suggestive of mild pulmonary edema. 2. Small bilateral pleural effusions with bibasilar opacities favor atelectasis. Radiographic follow-up to ensure resolution is recommended. 2. Mild cardiomegaly. CTA CHEST: IMPRESSION: 1. No evidence of acute pulmonary embolism. 2. Owoqo-[id number] bilateral pleural effusions. Associated dependent airspace opacities, likely atelectatic. 3. Mildly enlarged mediastinal lymph nodes. Supervising Physician Co-Signing Physician Notes Patient is a 63-year-old male with history of hypertension, diabetes, dyslipidemia, CKD III and other problems presents with history of shortness of breath, dyspnea on exertion associated with cough with clear expectoration which has been gradually worsening since last few days. Please review HPI for complete details of presentation. CTA showed no signs of PE, showed small to moderate bilateral pleural effusions, associated dependent airspace opacities, mildly enlarged mediastinal lymph nodes. Normal procalcitonin, lactate levels. Mild leukocytosis 12 K, troponin elevation at 7.0, 4.5, negative influenza screen. EKG showed T wave inversions in 1, aVL, incomplete left bundle branch block, ST and T wave abnormalities in inferolateral leads. Patient denies any chest pain. On exam patient is morbidly obese, no apparent distress, normocephalic atraumatic, lungs decreased breath sounds, clear to auscultation, S1-S2, no murmur, abdomen soft nontender, bilateral lower extremity lymphedema, right below-knee amputation, left leg in boot, grossly no focal neurological deficits. Patient is admitted for management of NSTEMI, fluid overload. Agree with starting on IV heparin, trend troponins, check echo, consult cardiology, n.p.o. after midnight. Lasix as needed for volume overload. Given normal lactate, procalcitonin levels no plan to start any antibiotics. May need repeat imaging/further testing for evaluation of enlarged mediastinal lymph nodes. I personally reviewed the record. Patient is interviewed and examined at bedside. Patient's care is coordinated with Lucila Rowan PA-C. Please refer to the documentation above for details of patient's presentation and for discussion of other issues.
[2019-05-26] MEDS ORDERED: COUGH DROP (SUGAR FREE) LOZ 24 LOZ/1 BOX BUCCAL STA (18:10)
[2019-05-26] MEDS ORDERED: COUGH DROP (SUGAR FREE) LOZ 24 LOZ/1 BOX BUCCAL ONE (18:13)
--- NOTE | 2019-05-26 18:53 | Pharmacy Report ---
Glycemic Control Consultation - Date of Service May 26, 2019 - Scope Scope: Glycemic Pharmacist consulted by Lucila Rowan on 05/26/19 for glycemic control and to write orders per [facility] inpatient glycemic control protocol - Objective Weight: 185 kg Accuchecks BSG (last 24hrs): 05/26/19 13:50 Glucose 136 H Laboratory Data (last 24hrs): 05/26/19 13:50 Potassium 4.0 Carbon Dioxide 25 Anion Gap 9.0 Creatinine 1.27 Est Cr Clr Drug Dosing Not Reportable - Recent Pertinent Medications Outpatient Anti-diabetic Regimen: * Humulin R U500 - 85 units TID * Humalog sliding scale * Metformin 1000mg PO BID * A1c ordered Risk Factors for Insulin Resistance: * Diet: Type 2 DM - Assessment & Plan Assessment & Plan: ASSESSMENT: * 63 year old male admitted for possible [place], poor historian, PMH significant for Type 2 DM on U500 insulin at home. * Patient had 85 units of his U500 insulin prior to admission. * Patient did have 3 packs of crackers and peanut butter in ER around 1800 today. * Will continue U500 use in hospital with a 30% reduction in dose tonight, then further dosing tomorrow. U500 covers both basal and prandial needs, will give correctional insulin as needed to keep blood glucose at goal. * Pt also on metformin as outpatient. Oral agents are not recommended for inpatient use d/t drug interactions, changing PO intake, and difficulty titrating for acute hyper/hypoglycemia. ADA recommends re-initiating outpatient oral agents 1-2 days prior to discharge if/when appropriate if they were held on admission. PLAN FOR INPATIENT GLYCEMIC CONTROL: * Holding outpatient oral diabetes medications * Basal & Prandial insulin * U500 - 60 units SQ x 1 dose tonight, further dose in AM * Bolus insulin * NovoLog per scale ACHS or Q6hrs while NPO * Goal Range: Low 110 mg/dL - High 140 mg/dL * Correction Factor: 15 mg/dL/unit * Please note that the plan above was derived based on current level of insulin resistance and hospital stress. These recommendations are appropriate for inpatient admission only. Plan of care upon discharge will need to be reassessed to avoid potential outpatient hypo/hyperglycemia. Thank you.
[2019-05-26] MEDS ORDERED: FUROSEMIDE 40 MG/4 ML VIAL IV ONE (19:07)
[2019-05-26] MEDS ORDERED: NITROGLYCERIN SL 0.4 MG/TAB TAB SL PRN (19:34)
[2019-05-26] MEDS ORDERED: CARBOHYDRATES FOR HYPOGLYCEMIA PO PRN (19:34)
[2019-05-26] MEDS ORDERED: ALBUTEROL 0.083% NEBU SOLN 3 ML VIAL NEB PRN (19:34)
[2019-05-26] MEDS ORDERED: GLUCAGON FOR INJ 1 MG VIAL SQ PRN (19:34)
[2019-05-26] MEDS ORDERED: DEXTROSE 50% 50 ML SYRINGE IV PRN (19:34)
[2019-05-26] MEDS ORDERED: GLUCOSE 10 TABS/TUBE PO PRN (19:34)
[2019-05-26] MEDS ORDERED: GLUCOSE 40% GEL 15 GM TUBE PO PRN (19:34)
[2019-05-26] MEDS ORDERED: PHARMACY GLYCEMIC MGMT CONSULT SCH (19:46)
[2019-05-26] MEDS: Heparin IV Standard *NO* Bolus IV SCH (20:13)
[2019-05-26] MEDS: DOCUSATE SODIUM 100 MG CAP PO SCH (20:55)
[2019-05-26] MEDS ORDERED: INSULIN GLARGINE SOLOSTAR 100 UNITS/ML 3 ML PEN SC SCH (21:00)
[2019-05-26] MEDS ORDERED: INSULIN ASPART 100 UNITS/ML 3 ML PEN SC SCH (21:00)
[2019-05-26] MEDS ORDERED: ATORVASTATIN 20 MG TAB PO SCH (21:00)
[2019-05-26] MEDS: ACETAMINOPHEN 325 MG TAB PO PRN (21:32)
[2019-05-26] MEDS ORDERED: POLYETHYLENE (MIRALAX) 17 GM PACK PO PRN (21:48)
[2019-05-26 23:22] LABS: Partial Thromboplastin Ratio 3.6
[2019-05-26 23:37] LABS: Partial Thromboplastin Time 97.2 Seconds (21.0-31.0)
[2019-05-27 01:57] LABS: Basophils # (auto) 0.02 K/uL (0-0.2); Basophils % (auto) 0.2 %; Eosinophils # (auto) 0.05 K/uL (0-0.5); Eosinophils % (auto) 0.4 %; Hematocrit (blood only) 45.4 % (42-52); Hemoglobin 14.9 g/dL (14.0-18.0); Immature Granulocytes # (auto) 0.04 K/uL (0.00-0.02); Immature Granulocytes % (auto) 0.3 %; Lymphocytes # (auto) 2.66 K/uL (1.2-3.4); Lymphocytes % (auto) 22.4 %; Mean Corpuscular Hemoglobin 29.2 pg (25-34); Mean Corpuscular Hgb Conc 32.8 g/dL (32-36); Mean Corpuscular Volume 88.8 fL (80-100); Mean Platelet Volume 11.4 fL (7.4-10.4); Monocytes # (auto) 0.96 K/uL (0.11-0.59); Monocytes % (auto) 8.1 %; Neutrophils # (auto) 8.17 K/uL (1.4-6.5); Neutrophils % (auto) 68.6 %; Platelet Count 155 K/uL (130-400); RDW Coefficient of Variation 13.8 % (11.5-14.5); RDW Standard Deviation 44.9 fL (36.4-46.3); Red Blood Count 5.11 M/uL (4.7-6.1)
[2019-05-27 02:13] LABS: Calcium 8.6 mg/dl (8.5-10.1); Creatinine Clr Calc Pharmacy 92.7 ml/min; Est GFR (African American) 59.3; Est GFR (Non-African American) 51.2; Magnesium 2.1 mg/dl (1.8-2.4); Potassium 3.7 mmol/L (3.5-5.1)
[2019-05-27 02:20] LABS: Troponin I 3.9 ng/ml (0-0.045)
[2019-05-27] MEDS: ACETAMINOPHEN 325 MG TAB PO PRN (05:04)
[2019-05-27] MEDS ORDERED: BISMUTH SUBSALICYLATE SUSP PO PRN (05:38)
[2019-05-27] MEDS: HEPARIN SODIUM/DEXTROSE 25,000 UNITS/500 ML BAG IV SCH (06:04)
[2019-05-27 06:13] LABS: Estimated Average Glucose 220 mg/dl; Hemoglobin A1C 9.3 % (4.5-5.6)
[2019-05-27 07:37] LABS: Partial Thromboplastin Ratio 2.2
[2019-05-27 07:51] LABS: Partial Thromboplastin Time 58.5 Seconds (21.0-31.0)
[2019-05-27] MEDS: INSULIN ASPART 100 UNITS/ML 3 ML PEN SC SCH ×2 (08:11→12:02)
[2019-05-27] MEDS: DOCUSATE SODIUM 100 MG CAP PO SCH (08:48)
[2019-05-27] MEDS ORDERED: INFLUENZA VIRUS QUAD VACCINE 0.5 ML SYR IM ONE (09:00)
[2019-05-27] MEDS ORDERED: FUROSEMIDE 20 MG in SYRINGE 0 ML IV ONE (09:00)
[2019-05-27] MEDS ORDERED: INFLUENZA ADMINISTRATION CHARGE ONE (09:00)
[2019-05-27] MEDS ORDERED: SENNA 8.6 MG TAB PO SCH (09:00)
[2019-05-27] MEDS ORDERED: PNEUMOCOCCAL POLYSACCHARIDES 25 MCG/0.5 ML VIAL/SYR IM ONE (09:00)
[2019-05-27] MEDS ORDERED: lisinopriL 40 MG TAB PO SCH (09:00)
[2019-05-27] MEDS ORDERED: ASPIRIN 81 MG ECTAB PO SCH (09:00)
[2019-05-27] MEDS ORDERED: MULTIVITAMIN TAB PO SCH (09:00)
[2019-05-27] MEDS ORDERED: PNEUMOCOCCAL ADMINISTRATION CHARGE ONE (09:00)
[2019-05-27 11:06] VITALS: TEMP 98.1
[2019-05-27 12:58] LABS: Albumin Level 3.2 gm/dl (3.4-5.0); BUN Creatinine Ratio 13.7 (10-20); Calcium 9.1 mg/dl (8.5-10.1); Creatinine Clr Calc Pharmacy 80.4 ml/min; Est GFR (African American) 50.8; Est GFR (Non-African American) 43.8; Potassium 3.9 mmol/L (3.5-5.1)
[2019-05-27 13:01] LABS: Partial Thromboplastin Ratio 2.1
[2019-05-27 13:05] LABS: Partial Thromboplastin Time 57.2 Seconds (21.0-31.0)
[2019-05-27 13:09] LABS: Albumin Globulin Ratio 0.9 (0.9-2); Globulin 3.6 gm/dl (2.5-4.0); Total Protein 6.8 gm/dl (6.4-8.2); Troponin I 4.81 ng/ml (0-0.045)
--- NOTE | 2019-05-27 14:18 | Cardiology Consultation ---
Date of Consultation May 27, 2019 Assessment & Plan (1) Heart failure, systolic, with acute decompensation: (2) NSTEMI (non-ST elevated myocardial infarction): (3) Cardiomyopathy: (4) LBBB (left bundle branch block): (5) Acute renal insufficiency: (6) Morbid obesity: (7) PVD (peripheral vascular disease): Continue intravenous heparin. Patient currently chest pain-free. No dysrhythmias on telemetry. Results of echocardiogram demonstrating moderate to severe LV systolic dysfunction discussed with patient at length. He is received 2 doses of intravenous diuretic therapy. Creatinine trending upward secondary to diuresis and possible early contrast-induced nephropathy after CT angiogram. Add beta-mona therapy, metoprolol 25 mg twice daily. Continue aspirin and statin therapy. With evidence of new cardiomyopathy, decompensated congestive heart failure, and elevated troponin with age-indeterminate left bundle branch block, recommend further evaluation with cardiac catheterization. The risks, benefits, alternatives to cardiac catheterization were discussed with the patient at length. Patient chest pain-free currently with rising creatinine. Discussed proceeding with cardiac catheterization at [facility] vs. transfer to tertiary care center, [facility] for further evaluation and treatment. Patient agreeable to transfer. Cardiac catheterization will be performed when renal function has stabilized. If patient decompensates or develops refractory anginal symptoms, would proceed with cardiac catheterization urgently, however, due to worsening renal function continue medical management recommended currently. Case discussed with inpatient [facility] pantograph setter, Dr. Crenshaw, who is agreeable to transfer. Patient will be placed on the hospitalist service at [facility]. Thank you for allowing to participate in the care of your patient. History of Present Illness Reason for Consultation: NSTEMI CHF Requesting Physician: Dr. Poole Attending Physician: Malachi Poole MD History of Present Illness 63-year-old male presented to the emergency department with shortness of breath. Patient reports episodic shortness of breath over the past few years. States he primarily utilizes wheelchair for mobility. Transfers from wheelchair to the commode as well as to seating around his home. He lives with his 2 sons. Suffered a right-sided BKA due to diabetic complications in the past. Denies prior history of coronary disease. In the ER patient found to have elevated troponin of 7.0. Denies any chest discomfort or heaviness. Notes occasional cough. Reports chronic orthopnea without paroxysmal nocturnal dyspnea. Notes chronic edema receiving treatment intermittently via physical therapy for lymphedema. Admits to noncompliance with medical therapies for the past 2 weeks. 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 Currently patient is resting comfortably. Notes abdominal discomfort and intermittent nausea with 5 episodes of diarrhea since this morning. States the diarrhea is a new symptom. Denies any fevers or chills. Notes 1 of his sons experience diarrhea last week. Denies any other sick contacts. Reports poorly controlled diabetes over the past 30 years. Offers no other concerns/complaints this time. Allergies Allergy/AdvReac Type Severity Reaction Status Date / Time ceftriaxone Allergy Severe ANAPHYLAXIS Verified 05/26/19 14:46 lidocaine Allergy Severe ANAPHYLAXIS Verified 05/26/19 14:46 -BRADYCARDI A Home Medications Home Medications Medication Instructions Recorded Confirmed Type acetaminophen 500 mg PO Q6H PRN 05/26/19 05/26/19 History albuterol sulfate [Ventolin HFA] 2 puff INHALATION QID PRN 05/26/19 05/26/19 History aspirin 81 mg PO DAILY 05/26/19 05/26/19 History atorvastatin 20 mg PO HS 05/26/19 05/26/19 History docusate sodium 100 mg PO BID 05/26/19 05/26/19 History ergocalciferol (vitamin D2) 50,000 unit PO WK 05/26/19 05/26/19 History [Vitamin D2] furosemide 20 mg PO DAILY 05/26/19 05/26/19 History insulin lispro [Humalog KwikPen 0 unit SUBCUT UD 05/26/19 05/26/19 History Insulin] insulin regular hum U-500 conc 85 unit SUBCUT TID 05/26/19 05/26/19 History [Humulin R U-500 (Conc) Insulin] lisinopril 40 mg PO DAILY 05/26/19 05/26/19 History metformin 1,000 mg PO BID 05/26/19 05/26/19 History multivitamin 1 tab PO DAILY 05/26/19 05/26/19 History Patient History Medical History Morbid obesity (Chronic) Charcot ankle (Chronic) CKD (chronic kidney disease), stage III (Chronic) Diabetes mellitus, type II (Chronic) Dyslipidemia (Chronic) HTN (hypertension) (Chronic) Type 2 diabetes mellitus Surgical History History of right below knee amputation (Chronic) Below knee amputation Family History Other Cancer Coronary heart disease Diabetes Social History Preferred Language: Togolese Communication Ability: Effective Senior Program Planner Required: No Beliefs That Will Affect Care: None Current Living Situation: Family Other Information That Helps Us Care for You: No Feels Safe at Home: Yes Safety Concerns: Feels Safe At This Time Smoking Status: Never smoker Tobacco Type: smokeless tobacco ; Do You Dip or Chew Tobacco: Yes ; Second Hand Exposure: No ; Tobacco Cessation Education Requested by Patient: No Hx Alcohol Use: No Hx Substance Use: No Review of Systems Review of Systems: All systems reviewed & are unremarkable except as noted in HPI & below Physical Exam Physical Exam: General: NAD, AAO x3, well nourished. Morbid obesity. HEENT: Normocephalic. Atraumatic. Conjunctiva pink, no scleral icterus. Neck: No carotid bruits, the carotid upstrokes are brisk. No JVD. No HJR Heart: Regular normal S-1 and S-2 no S-3 or S-4 gallop. No murmurs or rub appreciated. PMI is not displaced. No RV heave. Lungs: Clear bilateral without rales , rhonchi, or wheeze. Abdomen: Normal bowel sounds. Soft. Nontender. No masses or organomegaly. No abdominal bruits. Extremities: Right-sided below the knee amputation with prosthesis. 2+ left lower extremity nonpitting edema. Left- sided Charcot joint involving the ankle. Pulses: radial=0/4 B/L, femoral pulse = 1/4 B/L. Neuro: Cranial nerves grossly intact. No focal motor deficit. Results & Data Vital Signs (Past 12 Hours) Vital Signs Temp Pulse Resp BP Pulse Ox 05/27/19 11:05 36.7 C 94 H 20 126/76 97 05/27/19 03:50 36.6 C 90 19 121/81 96 Laboratory Results Laboratory Results - last 24 hr 05/26/19 05/26/19 05/26/19 13:50 13:50 18:06 WBC RBC Hgb Hct MCV MCH MCHC RDW Std Deviation RDW Coeff of Yonis Plt Count MPV Immature Gran % (Auto) Neut % (Auto) Lymph % (Auto) [place] % (Auto) Eos % (Auto) Baso % (Auto) Immature Gran # (Auto) Neut # (Auto) Lymph # (Auto) [place] # (Auto) Eos # (Auto) Baso # (Auto) APTT 30.5 PTT Ratio 1.1 Sodium Potassium Chloride Carbon Dioxide Anion Gap BUN Creatinine Est Cr Clr Drug Dosing Est GFR ( Amer) Est GFR (Non-Af Amer) BUN/Creatinine Ratio Glucose POC Glucose Estimat Average Glucose Hemoglobin A1c Lactate 1.8 Calcium Magnesium Total Bilirubin AST ALT Alkaline Phosphatase Troponin I Total Protein Albumin Globulin Albumin/Globulin Ratio Triglycerides Cholesterol LDL Cholesterol, Calc VLDL Cholesterol, Calc HDL Cholesterol Cholesterol/HDL Ratio Procalcitonin 0.09 05/26/19 05/26/19 05/26/19 20:15 20:19 22:50 WBC RBC Hgb Hct MCV MCH MCHC RDW Std Deviation RDW Coeff of Yonis Plt Count MPV Immature Gran % (Auto) Neut % (Auto) Lymph % (Auto) [place] % (Auto) Eos % (Auto) Baso % (Auto) Immature Gran # (Auto) Neut # (Auto) Lymph # (Auto) [place] # (Auto) Eos # (Auto) Baso # (Auto) APTT 97.2 H* PTT Ratio 3.6 Sodium Potassium Chloride Carbon Dioxide Anion Gap BUN Creatinine Est Cr Clr Drug Dosing Est GFR ( Amer) Est GFR (Non-Af Amer) BUN/Creatinine Ratio Glucose POC Glucose 195 H Estimat Average Glucose Hemoglobin A1c Lactate Calcium Magnesium Total Bilirubin AST ALT Alkaline Phosphatase Troponin I 4.510 H* Total Protein Albumin Globulin Albumin/Globulin Ratio Triglycerides Cholesterol LDL Cholesterol, Calc VLDL Cholesterol, Calc HDL Cholesterol Cholesterol/HDL Ratio Procalcitonin 05/27/19 05/27/19 05/27/19 00:19 01:40 01:40 WBC 11.90 H RBC 5.11 Hgb 14.9 Hct 45.4 MCV 88.8 MCH 29.2 MCHC 32.8 RDW Std Deviation 44.9 RDW Coeff of Yonis 13.8 Plt Count 155 MPV 11.4 H Immature Gran % (Auto) 0.3 Neut % (Auto) 68.6 Lymph % (Auto) 22.4 [place] % (Auto) 8.1 Eos % (Auto) 0.4 Baso % (Auto) 0.2 Immature Gran # (Auto) 0.04 H Neut # (Auto) 8.17 H Lymph # (Auto) 2.66 [place] # (Auto) 0.96 H Eos # (Auto) 0.05 Baso # (Auto) 0.02 APTT PTT Ratio Sodium 139 Potassium 3.7 Chloride 104 Carbon Dioxide 28 Anion Gap 7.0 BUN 19 H Creatinine 1.46 H Est Cr Clr Drug Dosing 92.7 Est GFR ( Amer) 59.3 Est GFR (Non-Af Amer) 51.2 BUN/Creatinine Ratio 13.0 Glucose 155 H POC Glucose 184 H Estimat Average Glucose Hemoglobin A1c Lactate Calcium 8.6 Magnesium 2.1 Total Bilirubin AST ALT Alkaline Phosphatase Troponin I 3.900 H* Total Protein Albumin Globulin Albumin/Globulin Ratio Triglycerides 121 Cholesterol 143 LDL Cholesterol, Calc 83 VLDL Cholesterol, Calc 24 HDL Cholesterol 36 Cholesterol/HDL Ratio 4 Procalcitonin 05/27/19 05/27/19 05/27/19 01:40 06:15 06:16 WBC RBC Hgb Hct MCV MCH MCHC RDW Std Deviation RDW Coeff of Yonis Plt Count MPV Immature Gran % (Auto) Neut % (Auto) Lymph % (Auto) [place] % (Auto) Eos % (Auto) Baso % (Auto) Immature Gran # (Auto) Neut # (Auto) Lymph # (Auto) [place] # (Auto) Eos # (Auto) Baso # (Auto) APTT PTT Ratio Sodium Potassium Chloride Carbon Dioxide Anion Gap BUN Creatinine Est Cr Clr Drug Dosing Est GFR ( Amer) Est GFR (Non-Af Amer) BUN/Creatinine Ratio Glucose POC Glucose 48 L* 49 L* Estimat Average Glucose 220 Hemoglobin A1c 9.3 H Lactate Calcium Magnesium Total Bilirubin AST ALT Alkaline Phosphatase Troponin I Total Protein Albumin Globulin Albumin/Globulin Ratio Triglycerides Cholesterol LDL Cholesterol, Calc VLDL Cholesterol, Calc HDL Cholesterol Cholesterol/HDL Ratio Procalcitonin 05/27/19 05/27/19 05/27/19 06:35 06:52 08:01 WBC RBC Hgb Hct MCV MCH MCHC RDW Std Deviation RDW Coeff of Yonis Plt Count MPV Immature Gran % (Auto) Neut % (Auto) Lymph % (Auto) [place] % (Auto) Eos % (Auto) Baso % (Auto) Immature Gran # (Auto) Neut # (Auto) Lymph # (Auto) [place] # (Auto) Eos # (Auto) Baso # (Auto) APTT 58.5 H* PTT Ratio 2.2 Sodium Potassium Chloride Carbon Dioxide Anion Gap BUN Creatinine Est Cr Clr Drug Dosing Est GFR ( Amer) Est GFR (Non-Af Amer) BUN/Creatinine Ratio Glucose POC Glucose 88 86 Estimat Average Glucose Hemoglobin A1c Lactate Calcium Magnesium Total Bilirubin AST ALT Alkaline Phosphatase Troponin I Total Protein Albumin Globulin Albumin/Globulin Ratio Triglycerides Cholesterol LDL Cholesterol, Calc VLDL Cholesterol, Calc HDL Cholesterol Cholesterol/HDL Ratio Procalcitonin 05/27/19 05/27/19 05/27/19 10:15 11:24 12:28 WBC RBC Hgb Hct MCV MCH MCHC RDW Std Deviation RDW Coeff of Yonis Plt Count MPV Immature Gran % (Auto) Neut % (Auto) Lymph % (Auto) [place] % (Auto) Eos % (Auto) Baso % (Auto) Immature Gran # (Auto) Neut # (Auto) Lymph # (Auto) [place] # (Auto) Eos # (Auto) Baso # (Auto) APTT PTT Ratio Sodium 138 Potassium 3.9 Chloride 103 Carbon Dioxide 27 Anion Gap 9.0 BUN 23 H Creatinine 1.66 H Est Cr Clr Drug Dosing 80.4 Est GFR ( Amer) 50.8 Est GFR (Non-Af Amer) 43.8 BUN/Creatinine Ratio 13.7 Glucose 139 H POC Glucose 98 105 H Estimat Average Glucose Hemoglobin A1c Lactate Calcium 9.1 Magnesium Total Bilirubin 1.0 AST 32 ALT 22 Alkaline Phosphatase 96 Troponin I 4.810 H* Total Protein 6.8 Albumin 3.2 L Globulin 3.6 Albumin/Globulin Ratio 0.9 Triglycerides Cholesterol LDL Cholesterol, Calc VLDL Cholesterol, Calc HDL Cholesterol Cholesterol/HDL Ratio Procalcitonin 05/27/19 05/27/19 12:28 12:28 WBC RBC Hgb Hct MCV MCH MCHC RDW Std Deviation RDW Coeff of Yonis Plt Count MPV Immature Gran % (Auto) Neut % (Auto) Lymph % (Auto) [place] % (Auto) Eos % (Auto) Baso % (Auto) Immature Gran # (Auto) Neut # (Auto) Lymph # (Auto) [place] # (Auto) Eos # (Auto) Baso # (Auto) APTT 57.2 H* PTT Ratio 2.1 Sodium Potassium Chloride Carbon Dioxide Anion Gap BUN Creatinine Est Cr Clr Drug Dosing Est GFR ( Amer) Est GFR (Non-Af Amer) BUN/Creatinine Ratio Glucose POC Glucose Estimat Average Glucose Hemoglobin A1c Lactate Calcium Magnesium Total Bilirubin AST ALT Alkaline Phosphatase Troponin I Cancelled Total Protein Albumin Globulin Albumin/Globulin Ratio Triglycerides Cholesterol LDL Cholesterol, Calc VLDL Cholesterol, Calc HDL Cholesterol Cholesterol/HDL Ratio Procalcitonin (1) Cardiomyopathy Cardiomyopathy type: unspecified Qualified Code(s): I42.9 - Cardiomyopathy, unspecified
[2019-05-27 15:06] VITALS: BP 109/75; PULSE 76; O2SAT 94
[2019-05-27] MEDS ORDERED: METOPROLOL TARTRATE 25 MG TAB PO SCH ×2 (15:10→21:00)
--- NOTE | 2019-05-27 15:25 | Hospitalist Progress Note ---
Date of Service May 27, 2019 Assessment & Plan (1) NSTEMI (non-ST elevated myocardial infarction): Pt is 63 y/o M with PMH HTN, DM II, dyslipidemia, CKD III, h/o 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 Reports cough sometimes productive of clear sputum x several months. Patient reports some orthopnea past several days, denies any PND, fever or chills. -In ER on 05/26/19 afebrile, P: 85, R: 20, BP: 160/90, 97% on RA. WBC: 12, H/H: 15/45, troponin: 7.0. EKG 82, sinus rhythm, incomplete LBBB. prior ekg from 2011 without LBBB -05/26/19 CTA CHEST: No evidence of acute pulmonary embolism. [id number] bilateral pleural effusions. Associated dependent airspace opacities, likely atelectatic. Mildly enlarged mediastinal lymph nodes. -patient's case was discussed with cardiology on admission and patient was started on heparin drip on 05/27/19 -Patient was evaluated by cardiology and given dyspnea symptoms with elevated troponins and echocardiogram findings of 30 to 35 % percent with global hypokinesis of left ventricle that patient has NSTEMI (Non ST elevation myocardial infarction) for which patient will need cardiac catheterization for suspected multi-vessel coronary artery disease. patient's current acute kidney injury complicates cardiac cath to be performed at [facility] currently. [employer] Demonstrator Dr. Estrella recommends that patient be transferred to tertiary care center [facility] in [place] for cardiac cath. Patient also may be candidate for Coronary artery bypass grafting (CABG) if the cardiac cath at [facility] in [place] center deems this to be necessary and CABG assessments are available at [facility]. Dr. Estrella discussed with [facility] rehabilitation coordinator Dr. De Jesus who will coordinate cardiac cath procedure. The accepting hospitalist is Dr. Wing at [facility] Dr. Estrella: added beta-mona therapy, metoprolol 25 mg tartrate twice daily. Continue aspirin and statin therapy. (2) Elevated troponin: elevated troponins from NSTEMI elevated troponin with age-indeterminate left bundle branch block -troponins 7 to 4.5 to 3.9 to 4.8 -on IV heparin drip (3) Fluid overload: Acute systolic congestive heart failure secondary to NSTEMI -symptoms of increased SOB past couple of days prior to admission -admission BNP: 1500, admission chest X ray: Interstitial thickening suggestive of mild pulmonary edema. Small bilateral pleural effusions with bibasilar opacities favor atelectasis, was given Lasix 40 mg IV on admission on 05/27/19 -20 mg IV Lasix given on 05/27/19 -patient currently on room air. Lasix requirements need to be assessed daily (4) CKD (chronic kidney disease), stage III: acute kidney injury on chronic kidney disease stage III Baseline creatinine is 1.3 -current creatinine is 1.66 -elevated creatinine may be from recent IV Lasix or contrast induced injury from recent CTA -Monitor renal function -Nephrotoxic agents and possible (5) Diabetes mellitus, type II: Insulin-dependent A1c: 8.6 on 12/2018 -Held metformin -Patient on Humulin R U-500 as well as sliding scale at home - pharmacist glycemic consult ordered 30 units NPH that was given on 05/27/19 -subsequently patient had hypoglycemia because he was also non per oral. glucose currently stable -gets sliding scale insulin with meals (6) HTN (hypertension): -lisinopril 40 mg daily (7) Morbid obesity: Morbid Obesity with BMI 51 -treat cardiac health (8) Dyslipidemia: -increase atorvastatin from 20 mg daily to 40 mg daily (9) History of right below knee amputation: History Charcot ankle s/p right Below Knee Amputation -has right leg prosthesis -left leg in protective boot to protect from Charcot injury DVT Prophylaxis -On Heparin IV DNR/DNI as per discussion with pt Follows with Dr Snider for routine care Disposition: accepted for transfer to [facility] in [place]. [facility] rehabilitation coordinator Dr. De Jesus will coordinate cardiac cath procedure. The accepting hospitalist is Dr. Wing at [facility] in [place] currently on IV heparin drip 39 ml/hr (1950 units /hr). will need to be transported on transfer with heparin IV drip. Discharge Diagnosis: NSTEMI (Non ST elevation myocardial infarction) with elevated troponins, Acute systolic congestive heart failure secondary to NSTEMI, acute kidney injury on chronic kidney disease stage III, Insulin dependent type 2 diabetes mellitus, Hypertension, Morbid Obesity with BMI 51, dyslipidemia Subjective Patient breathing on room air. On heparin drip. no chest pain at this time. he is more concerned about recent diarrhea. no abdomen pain. no dizziness. no lightheadedness. Patient was evaluated by cardiology and given dyspnea symptoms with elevated troponins and echocardiogram findings of 30 to 35 % percent with global hypokinesis of left ventricle that patient has NSTEMI (Non ST elevation myocardial infarction) for which patient will need cardiac catheterization for suspected multi-vessel coronary artery disease. patient's current acute kidney injury complicates cardiac cath to be performed at [facility] currently. [employer] Demonstrator Dr. Estrella recommends that patient be transferred to tertiary care center [facility] in [place] for cardiac cath. Patient also may be candidate for Coronary artery bypass grafting (CABG) if the cardiac cath at [facility] in [place] center deems this to be necessary and CABG assessments are available at [facility] in [place]. Dr. Estrella discussed with [facility] rehabilitation coordinator Dr. De Jesus who will coordinate cardiac cath procedure. The accepting hospitalist is Dr. Wing at [facility] Physical Exam Constitutional: WD/WN, vitals as above + obese Eyes: PERRL, conjunctivae normal, anicteric sclerae EOM intact bilaterally ENMT: external ear and nose normal, oropharynx normal Neck: normal visual inspection Respiratory: normal respiratory effort Cardiovascular: Rate/Rhythm: regular rate and regular rhythm Gastrointestinal (Abdomen): normal bowel sounds, soft, nontender, no hepatosplenomegaly Musculoskeletal: Extremities: + lower extremity abnormal to inspection (right leg below knee amputee, right leg prosthesis) and + limited ROM of lower extremity (left leg in protective boot) Neurologic: PERRL, EOMI, accommodation nl, no face palsy, no dysarthria CN's II-XI intact bilaterally Psychiatric: A+Ox3, euthymic affect Results & Data Vital Signs (Past 12 Hours) Vital Signs Temp Pulse Resp BP BP Pulse Ox 05/27/19 15:05 36.7 C 76 20 109/75 94 05/27/19 11:05 36.7 C 94 H 20 126/76 97 05/27/19 03:50 36.6 C 90 19 121/81 96
[2019-05-27] MEDS ORDERED: NovoLIN-N (NPH) PER UNIT CHARGE SQ ONE ×2 (15:30→16:00)
--- NOTE | 2019-05-27 15:43 | Pharmacy Report ---
Pharmacy Glycemic Short Note 2 - Date of Service May 27, 2019 - Glycemic Short BSG Results (Last 24 hours): 05/26/19 05/27/19 05/27/19 20:19 00:19 01:40 Glucose 155 H POC Glucose 195 H 184 H 05/27/19 05/27/19 05/27/19 06:15 06:16 06:35 Glucose POC Glucose 48 L* 49 L* 88 05/27/19 05/27/19 05/27/19 08:01 10:15 11:24 Glucose POC Glucose 86 98 105 H 05/27/19 12:28 Glucose 139 H POC Glucose OUTPATIENT ANTIDIABETIC REGIMEN: * U-500 85 units TID - patient reports taking BID (often sleeps through breakfast dose) * Humalog ACHS (CR of 7 and CF of 1 unit for every 7 mg/dL above 160 mg/dL) - patient admits to noncompliance/partial compliance with this medication * Metformin 1 g PO BIDM - patient also admits to non-compliance due to neuropathy and difficulty handling pills ASSESSMENT: * SC is a 63 year old male admitted for NSTEMI and CHF on 05/26/19 * PMH includes type 2 diabetes with complications (neuropathy, below knee amputation of right leg), obesity, CKD stage III, and CHF * Patient has been NPO today pending possible cardiac catheterization - advanced diet to T2DM this afternoon * Patient also reports significant nausea with multiple episodes of diarrhea * Per interview with patient, he is non-compliant with current regimen as a whole, but does report taking 85 units of U-500 BID every day * Patient reports increasing low BSGs lately (mostly observed based on physical symptoms and not from SMBG, which he does not check frequently) * Please see nurse educator note from Bridgett Bourne on 05/27/19 for full details on this patient interview * Patient received 149 units of insulin yesterday * BSG this morning at 49 mg/dL - will not utilize U-500 insulin while inpatient and transition to conservative SC basal/bolus insulin using NPH a nd Novolog * 30% reduction is approximately 100 units (TDD) * Plan is for patient to be transferred to [place] today PLAN FOR INPATIENT GLYCEMIC CONTROL: * Hold outpatient oral diabetes medications * Basal insulin * NPH 50 units x 1 dose based on weight-based stress of 2 dosing and in line with 100 unit TDD estimate from above * will utilize scale tonight at midnight in case initial dose of NPH is inadequate: * -If BSG 140 mg/dL or below: 20 units * -If BSG 141-179 mg/dL: 30 units * -If BSG 180 mg/dL or above: 40 units * Bolus insulin * NovoLog per scale q4h * Goal Range: Low 110 mg/dL - High 140 mg/dL * Correction Factor: 15 mg/dL/unit * Prandial insulin: Per carb ratio of 1 unit per 4 grams CHO consumed * Low threshold for initiating insulin drip to better predict insulin requirements in this patient
[2019-05-27] MEDS ORDERED: ATORVASTATIN 40 MG TAB PO SCH (15:45)
--- NOTE | 2019-05-27 15:54 | Discharge Summary ---
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 Pt poor historian. Reports intermittent SOB with transferring himself out of wheelchair for several months. Pt is mostly wheelchair dependent. Reports he believes he has had worsening shortness of breath over the past week. Reports cough sometimes productive of clear sputum over the past several months. Patient reports some orthopnea past several days, denies any PND. Patient reports 2 days ago he fell asleep in his wheelchair and when he woke up he had bilateral shoulder, b ilateral arm pain, back pain, anterior chest pain which all improved after sitting up in chair for several minutes. Denies any other chest pain. Patient reports some intermittent nausea over the past week also. Patient reports that he has not been taking his medications as prescribed including his diuretics, as his sons have not been filling his pillbox for him, patient reports difficulty opening up pill bottles secondary to his chronic neuropathy. Patient with lymphedema lower extremity and follows with PT for lymphedema therapy however has not followed up for the past 4 weeks. Patient is unsure if he has had any increased lower extremity edema. Chronic constipation and uses stool softeners daily. Last BM 1 day ago. Denies fever/chills, diaphoresis, V/D, VORA, dizziness, syncope, vision changes, neck pain, palpitations, sore throat, choking, otalgia, rhinorrhea, abdominal pain, rashes, urinary symptoms. Patient denies any known coronary artery disease or CHF. Admission Exam Per Admitting Provider General: no acute distress, obese Head: normocephalic, atraumatic Eyes: PERRL, EOM's intact, conjunctiva non-injected, anicteric ENT: normal inspection external ears, nose, mucous membranes moist Neck: supple, trachea midline Lungs: clear, no respiratory distress, no wheezing/rhonchi/rales CV: RRR, no murmur Abd: normal BS, soft, non-tender Ext: Right below knee amputation with prosthetic sleeve in place. upper left leg with some edema (pt reports chronic) Left lower leg and foot with ortho boot in place. Pt will not allow boot or sleeve to be removed to evaluate skin, edema or distal pulses. Neuro: A&O x 3, no focal deficits noted, normal affect Skin: warm, dry Principal Diagnosis NSTEMI (Non ST elevation myocardial infarction) with elevated troponins, Acute systolic congestive heart failure secondary to NSTEMI, acute kidney injury on chronic kidney disease stage III, Insulin dependent type 2 diabetes mellitus, Hypertension, Morbid Obesity with BMI 51, dyslipidemia Discharge Exam Constitutional WD/WN, vitals as above + obese Eyes PERRL, conjunctivae normal, anicteric sclerae EOM intact bilaterally ENMT external ear and nose normal, oropharynx normal Neck normal visual inspection Respiratory normal respiratory effort Cardiovascular Rate/Rhythm: regular rate and regular rhythm Gastrointestinal (Abdomen) normal bowel sounds, soft, nontender, no hepatosplenomegaly Musculoskeletal Extremities: + lower extremity abnormal to inspection (right leg below knee amputee, right leg prosthesis) and + limited ROM of lower extremity (left leg in protective boot) Neurologic PERRL, EOMI, accommodation nl, no face palsy, no dysarthria CN's II-XI intact bilaterally Psychiatric A+Ox3, euthymic affect Discharge Data Allergies Allergy/AdvReac Type Severity Reaction Status Date / Time ceftriaxone Allergy Severe ANAPHYLAXIS Verified 05/26/19 14:46 lidocaine Allergy Severe ANAPHYLAXIS Verified 05/26/19 14:46 -BRADYCARDI A Consultations 05/26/19 16:53 ED Decision to Admit Stat 05/26/19 19:34 Consult Cardiology Routine Consult Case Management - Discharge Planning Routine 05/27/19 14:35 Burn CD for patient Routine Ordered Studies 05/26/19 14:59 CT angio chest PE protocol Stat Hospital Course (1) NSTEMI (non-ST elevated myocardial infarction): Pt is 63 y/o M with PMH HTN, DM II, dyslipidemia, CKD III, h/o 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 Reports cough sometimes productive of clear sputum x several months. Patient reports some orthopnea past several days, denies any PND, fever or chills. -In ER on 05/26/19 afebrile, P: 85, R: 20, BP: 160/90, 97% on RA. WBC: 12, H/H: 15/45, troponin: 7.0. EKG 82, sinus rhythm, incomplete LBBB. prior ekg from 2011 without LBBB -05/26/19 CTA CHEST: No evidence of acute pulmonary embolism. [id number] bilateral pleural effusions. Associated dependent airspace opacities, likely atelectatic. Mildly enlarged mediastinal lymph nodes. -patient's case was discussed with cardiology on admission and patient was started on heparin drip on 05/27/19 -Patient was evaluated by cardiology and given dyspnea symptoms with elevated troponins and echocardiogram findings of 30 to 35 % percent with global hypokinesis of left ventricle that patient has NSTEMI (Non ST elevation myocardial infarction) for which patient will need cardiac catheterization for suspected multi-vessel coronary artery disease. patient's current acute kidney injury complicates cardiac cath to be performed at [facility] [address] currently. Topper Packer Dr. Estrella recommends that patient be transferred to tertiary care center [facility] in [place] for cardiac cath. Patient also may be candidate for Coronary artery bypass grafting (CABG) if the cardiac cath at [facility] in [place] center deems this to be necessary and CABG assessments are available at [facility]. Dr. Estrella discussed with [facility] garnetter Dr. De Jesus who will coordinate cardiac cath procedure. The accepting hospitalist is Dr. Wing at [facility] Dr. Estrella: added beta-mona therapy, metoprolol 25 mg tartrate twice daily. Continue aspirin and statin therapy. (2) Elevated troponin: elevated troponins from NSTEMI elevated troponin with age-indeterminate left bundle branch block -troponins 7 to 4.5 to 3.9 to 4.8 -on IV heparin drip (3) Fluid overload: Acute systolic congestive heart failure secondary to NSTEMI -symptoms of increased SOB past couple of days prior to admission -admission BNP: 1500, admission chest X ray: Interstitial thickening suggestive of mild pulmonary edema. Small bilateral pleural effusions with bibasilar opacities favor atelectasis, was given Lasix 40 mg IV on admission on 05/27/19 -20 mg IV Lasix given on 05/27/19 -patient currently on room air. Lasix requirements need to be assessed daily (4) CKD (chronic kidney disease), stage III: acute kidney injury on chronic kidney disease stage III Baseline creatinine is 1.3 -current creatinine is 1.66 -elevated creatinine may be from recent IV Lasix or contrast induced injury from recent CTA -Monitor renal function -Nephrotoxic agents and possible (5) Diabetes mellitus, type II: Insulin-dependent A1c: 8.6 on 12/2018 -Held metformin -Patient on Humulin R U-500 as well as sliding scale at home - pharmacist glycemic consult ordered 30 units NPH that was given on 05/27/19 -subsequently patient had hypoglycemia because he was also non per oral. glucose currently stable -gets sliding scale insulin with meals (6) HTN (hypertension): -lisinopril 40 mg daily (7) Morbid obesity: Morbid Obesity with BMI 51 -treat cardiac health (8) Dyslipidemia: -increase atorvastatin from 20 mg daily to 40 mg daily (9) History of right below knee amputation: History Charcot ankle s/p right Below Knee Amputation -has right leg prosthesis -left leg in protective boot to protect from Charcot injury DVT Prophylaxis -On Heparin IV DNR/DNI as per discussion with pt Follows with Dr Snider for routine care Disposition: accepted for transfer to [facility] in [place]. [facility] garnetter Dr. De Jesus will coordinate cardiac cath procedure. The accepting hospitalist is Dr. Wing at [facility] in [place] currently on IV heparin drip 39 ml/hr (1950 units /hr). will need to be transported on transfer with heparin IV drip. Discharge Diagnosis: NSTEMI (Non ST elevation myocardial infarction) with elevated troponins, Acute systolic congestive heart failure secondary to NSTEMI, acute kidney injury on chronic kidney disease stage III, Insulin dependent type 2 diabetes mellitus, Hypertension, Morbid Obesity with BMI 51, dyslipidemia Total Time Total Time Spent Total Time Spent (In Minutes): 40 minutes Total Time Includes: Examination of the Patient, Discharge Planning, Medication Reconciliation and Communication With Other Providers Discharge Plan Discharge Items Patient Disposition: Transfer Acute Care Hospital Reason For Visit: ELEVATED TROPONIN Discharge Diagnosis: NSTEMI (Non ST elevation myocardial infarction) with elevated troponins, Acute systolic congestive heart failure secondary to NSTEMI, acute kidney injury on chronic kidney disease stage III, Insulin dependent type 2 diabetes mellitus, Hypertension, Morbid Obesity with BMI 51, dyslipidemia Condition on Discharge: Fair Activity: Per Instructions section Non-emergency contact: Primary Care Provider and Topper Packer Call non-emergency contact if: you have any medication questions Follow-up/Referrals: Dion Snider MD [Primary Care Provider] - Diet: Carb Consistent or DM2 and Heart Healthy Addtl Attending Provider Instructions: accepted for transfer to [facility] in [place]. [facility] garnetter Dr. De Jesus will coordinate cardiac cath procedure. The accepting hospitalist is Dr. Wing at [facility] in [place] currently on IV heparin drip 39 ml/hr (1950 units /hr). will need to be transported on transfer with heparin IV drip. Pending Studies at Discharge: No Stand-Alone Forms: My [facility] Skilled Items Patient informed of condition?: Yes DNR: Yes Discharge Level of Care: Other Communicable Disease: No Discharge Prognosis: Stable Lines: Peripheral IV Urinary Catheter: No Medications and DC Order Prescriptions: New atorvastatin 40 mg Tablet 40 mg PO QAM 30 Days Qty: 30 RF: 0 metoprolol tartrate 25 mg Tablet 25 mg PO BID 30 Days Qty: 60 RF: 0 Continued multivitamin Tablet 1 tab PO DAILY RF: 0 aspirin 81 mg Tablet,Delayed Release (Dr/Ec) 81 mg PO DAILY RF: 0 Humulin R U-500 (Conc) Insulin 500 unit/mL Solution 85 unit SUBCUT TID RF: 0 docusate sodium 100 mg Capsule 100 mg PO BID RF: 0 albuterol sulfate [Ventolin HFA] 90 mcg/actuation HFA aerosol inhaler 2 puff inhalation QID PRN (Reason: Shortness Of Breath) RF: 0 lisinopril 40 mg tablet 40 mg PO DAILY RF: 0 insulin lispro [Humalog KwikPen Insulin] 100 unit/mL Insulin Pen subcut UD RF: 0 ergocalciferol (vitamin D2) [Vitamin D2] 50,000 unit Capsule 50,000 unit PO WK RF: 0 Discontinued atorvastatin 20 mg tablet 20 mg PO HS RF: 0 metformin 1,000 mg tablet 1,000 mg PO BID RF: 0 furosemide 20 mg tablet 20 mg PO DAILY RF: 0 acetaminophen 500 mg Tablet 500 mg PO Q6H PRN (Reason: Pain) RF: 0 Discharge Orders: Discharge Order (Routine); Ordered 05/27/19 Ordered By: Malachi Monge/Other Patient Handouts: Diabetes Heart Disease, Diabetes Collector Of Port Complications, Diabetes Resources, Diabetes Type 2 Coping, Blood Sugar Check, Diabetes Healthy Meals, Diabetes Carbs, Diabetes Exercise Benefits, Diabetes Exercise Get Started, Diabetes Activity Tips, Diabetes Living Life, Diabetes Manage A1C Test, Heart Risk Identifying Admission Data Admit Date/Time: 05/26/19 17:57 Attending Provider: Malachi Poole Admit Provider: Luis E Connor Primary Care Provider: Dion Snider Other Providers: Eleuterio Estrella Satish K.
[2019-05-27] MEDS ORDERED: LOPERAMIDE HCL 2 MG CAP PO STA (16:32)
[2019-05-28] MEDS ORDERED: NovoLIN-N (NPH) PER UNIT CHARGE SQ SCH
== END 2019-05-27 17:26 | disposition short-term general hospital (02) | DRG 280 ==
LOC: ED 12:35 → 2S 17:57 → SUATTDRO 17:57 → 2S 19:00
DX: Z79.82 Long term (current) use of aspirin; I13.0 Hypertensive heart and chronic kidney disease with heart failure and stage 1 through stage 4 chronic kidney disease, or unspecified chronic kidney disease; I50.21 Acute systolic (congestive) heart failure; I42.9 Cardiomyopathy, unspecified; E11.618 Type 2 diabetes mellitus with other diabetic arthropathy; E66.01 Morbid (severe) obesity due to excess calories; I21.4 Non-ST elevation (NSTEMI) myocardial infarction; N17.9 Acute kidney failure, unspecified; E11.22 Type 2 diabetes mellitus with diabetic chronic kidney disease; E11.69 Type 2 diabetes mellitus with other specified complication; Z68.43 Body mass index [BMI] 50.0-59.9, adult; Z99.3 Dependence on wheelchair; E11.40 Type 2 diabetes mellitus with diabetic neuropathy, unspecified; I25.10 Atherosclerotic heart disease of native coronary artery without angina pectoris; E78.5 Hyperlipidemia, unspecified; N18.3 Chronic kidney disease, stage 3 (moderate); Z79.84 Long term (current) use of oral hypoglycemic drugs; Z66 Do not resuscitate; Z89.511 Acquired absence of right leg below knee

== ENCOUNTER 2022-06-12 16:45 | Inpatient (IN) ==
[2022-06-12 18:59] LABS: Basophils # (auto) 0.02 K/uL (0-0.2); Basophils % (auto) 0.1 %; Eosinophils # (auto) 0.06 K/uL (0-0.50); Eosinophils % (auto) 0.3 %; Hematocrit (blood only) 36.1 % (40.1-51.0); Hemoglobin 12.4 g/dl (14.0-18.0); Immature Granulocytes # (auto) 0.41 K/uL (0.00-0.02); Immature Granulocytes % (auto) 2.2 %; Lymphocytes # (auto) 1.04 K/uL (1.2-3.4); Lymphocytes % (auto) 5.5 %; Mean Corpuscular Hemoglobin 29.3 pg (25.0-34.0); Mean Corpuscular Hgb Conc 34.3 g/dL (32.0-36.0); Mean Corpuscular Volume 85.3 fL (80.0-100.0); Mean Platelet Volume 11.4 fL (9.4-12.4); Monocytes # (auto) 0.78 K/uL (0.24-0.82); Monocytes % (auto) 4.1 %; Neutrophils # (auto) 16.54 K/uL (1.4-6.5); Neutrophils % (auto) 87.8 %; Nucleated RBC # (auto) 0.09 K/uL (0-0); Nucleated RBC % (auto) 0.5 %; Platelet Count 213 K/uL (130-400); RDW Standard Deviation 46.5 fL (36.4-46.3); Red Blood Count 4.23 M/uL (4.63-6.08); White Blood Count 18.85 K/ul (4.8-10.8)
[2022-06-12] MEDS ORDERED: DAPTOmycin 500 MG in SYRINGE 0 ML IV STA (19:01)
[2022-06-12 19:11] LABS: INR 1.2 (0.9-1.1); Partial Thromboplastin Ratio 1.1; Partial Thromboplastin Time 31.3 Seconds (21.0-31.0); Prothrombin Time 12.3 Seconds (9.0-12.0)
--- NOTE | 2022-06-12 19:13 | Emergency Department Note ---
Impression & Plan Cellulitis, Failure of outpatient treatment, Elevated troponin, Leukocytosis, Acute hyponatremia ED Provider Note NAME: FRANCOIS MAZARIEGOS AGE: 66 SEX: M : 1955 ARRIVES VIA: Ambulance INFORMANT: [Patient] ED PROVIDER(S): [Laureano Jin MD] CHIEF COMPLAINT: Infection HISTORY OF PRESENT ILLNESS: The patient is a 66-year-old male who presents to the ER with a left leg infection. He has been on clindamycin for a left leg cellulitis. Despite the antibiotics, his leg has become more erythematous and today, he was thought to be a bit groggy. Home health called EMS. The patient denies any chest pain, cough or congestion. No abdominal pain or vomiting. He admits to a decreased appetite. He states that his left leg looks more red and swollen. The patient's blood sugar was 211 as per EMS, he was given a 500 cc saline bolus in route. REVIEW OF SYSTEMS: See HPI for pertinent positives and negatives. A total of ten systems were reviewed and were otherwise negative. PMHx/PSHx: See Below SOCIAL HISTORY: See Below. PHYSICAL EXAM: GENERAL: Patient is in no acute distress. HEENT: No acute trauma, normocephalic atraumatic, mucous membranes dry, no nasal congestion, no scleral icterus. NECK: No stridor, no adenopathy, no meningismus, trachea is midline. LUNGS: Clear to auscultation bilaterally, no wheeze, no rhonchi, breath sounds equal. HEART: Without murmurs gallops or rubs, regular rate and rhythm. ABDOMEN: Soft, nontender, bowel sounds positive, no peritonitis. Obese. EXTREMITIES: No cyanosis. There is a right below the knee amputation with prosthesis fitted. He has edema of the left lower extremity with erythema that tracks from the foot to the inner thigh. There is some warmth. There is some scaling of the skin throughout the left lower extremity and there is a blister or 2 seen. No active drainage. NEUROLOGIC: Oriented x 3, no acute motor or sensory deficits, no focal weakness. SKIN: No jaundice, no diaphoresis. DIFFERENTIAL DIAGNOSIS: Sepsis, UTI, pneumonia, metabolic abnormality, COVID-19, failed outpatient management, DVT, electrolyte abnormalities, cardiac sources, cellulitis, bacter emia, intracerebral event, toxicologic etiology, neurologic event, as well as other pathologies. EMERGENCY DEPARTMENT COURSE/PROCEDURES: ECG: Indication was possible sepsis. The ECG shows a normal sinus rhythm with a rate of 67. There is a left bundle branch block. There is no ST elevation, no PVCs. QTC is 505. Compared to an ECG from 07 June 2020, the left bundle branch block is now present. Continuous Cardiac Monitoring: An order was placed for continuous cardiac monitoring. The monitor shows a rate of 67 with normal sinus rhythm. Critical Care Note: I have personally spent 51 minutes of critical care time in the direct management of this patient. This includes bedside care, interpretation of diagnostic studies, and testing, discussion with consultants, patient, and family members, and other required patient management activities. This 51 minutes is in excess of all separately billable procedures. MEDICAL DECISION MAKING: There is a moderate leukocytosis this is consistent with infection. There is a mild anemia noted. There is a normal platelet count. INR slightly elevated. Sodium is low at 129. Creatinine is somewhat elevated at 1.96. The patient's creatinine has been higher before but today's value is somewhat above his baseline. Lactic acid level was elevated consistent with potential infection. There were some mild liver enzyme elevations although, the bilirubin was normal. Total CK was not elevated. Procalcitonin level was elevated consistent with potential bacterial infection. ECG showed a sinus rhythm with a left bundle branch block, no ST elevation. Cardiac enzyme testing was elevated at over 2000, this elevation could be consistent with cardiac injury or potentially mismatch. Of note, the patient does not have any chest pain. Chest x-ray shows some potential mild CHF versus changes from his body habitus. No pneumonia. COVID test returned negative. Left leg ultrasound does not show DVT. On exam, the patient had an extensive left lower extremity cellulitis. Clinically, he seemed dehydrated. Patient received IV daptomycin, 500 mg. This was given as antibiotic coverage. I did speak with the patient, I talked to case management. Patient has failed outpatient treatment for his cellulitis. He has an elevated lactic acid level, he has a leukocytosis and an elevated troponin. A hospital stay is clearly warranted. The on-call hospitalist was consulted. Past Med/Surg History Medical History (Updated 06/12/22 @ 22:13 by Laureano Jin MD) Cardiomyopathy Charcot ankle CKD (chronic kidney disease), stage III Diabetes mellitus, type II Dyslipidemia Heart failure EF 30-35% from 06/11 echocardiogram HTN (hypertension) Morbid obesity NSTEMI (non-ST elevated myocardial infarction) PVD (peripheral vascular disease) Type 2 diabetes mellitus Surgical History Below knee amputation History of right below knee amputation Family History Other Cancer Coronary heart disease Diabetes Social History Smoking Status: Never smoker Tobacco Type: Smokeless Tobacco (Dip or Chew) Second Hand Exposure: No; Hx Alcohol Use: Yes Alcohol type: hard liquor Hx Substance Use: No Preferred Language: Jordanian Communication Ability: Effective 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 Beliefs That Will Affect Care: None marital status: Current Living Situation: Alone How many Children do You have: 2 Feels Safe at Home: Yes Assistive Devices: Cane Allergies Allergies Allergy/AdvReac Type Severity Reaction Status Date / Time ceftriaxone Allergy Severe ANAPHYLAXIS Verified 06/12/22 21:00 lidocaine Allergy Severe ANAPHYLAXIS Verified 06/12/22 21:00 -BRADYCARDI A Home Meds Home Medications Medication Instructions Recorded Confirmed albuterol sulfate 90 mcg/actuation 2 puff inhalation Q4 PRN Wheezing 05/26/19 06/12/22 aerosol inhaler (Ventolin HFA) docusate sodium 100 mg capsule 100 mg PO BID PRN Constipation 05/26/19 06/12/22 ergocalciferol (vitamin D2) 1,250 50,000 unit PO WK 05/26/19 06/12/22 mcg (50,000 unit) capsule (Vitamin D2) atorvastatin 40 mg tablet 40 mg PO DAILY 06/06/20 06/12/22 furosemide 40 mg tablet 40 mg PO DAILY 06/06/20 06/12/22 insulin NPH isoph U-100 human 100 50 unit subcut BID 06/06/20 06/12/22 unit/mL (3 mL) subcutaneous pen (Novolin N Flexpen) metformin 500 mg tablet 500 mg PO BIDM 06/06/20 06/12/22 metoprolol succinate 25 mg 25 mg PO DAILY 06/06/20 06/12/22 tablet,extended release 24 hr clopidogrel 75 mg tablet 75 mg PO DAILY 06/07/20 06/12/22 acetaminophen 500 mg tablet 1,000 mg PO TID PRN Fever Or Pain 06/12/22 06/12/22 (Tylenol Extra Strength) aspirin 81 mg chewable tablet 81 mg PO DAILY 06/12/22 06/12/22 (Aspirin Childrens) calcium carbonate 600 mg-vitamin 2 tab PO DAILY 06/12/22 06/12/22 D3 5 mcg (200 unit) tablet (Calcium 600 + D(3)) fluticasone propionate 50 2 spray intranasal DAILY 06/12/22 06/12/22 mcg/actuation nasal spray,suspension insulin regular human 100 unit/mL 0 sliding scale dose subcut QID 06/12/22 06/12/22 (3 mL) subcutaneous pen (Novolin R Flexpen) isosorbide mononitrate 30 mg 30 mg PO QAM 06/12/22 06/12/22 tablet,extended release 24 hr ondansetron 4 mg disintegrating 4 mg translingual Q8 PRN Nausea 06/12/22 06/12/22 tablet Results & Data (ED) Vital Signs Vital Signs - 24 hr 06/12/22 16:55 06/12/22 16:58 06/12/22 17:00 Temperature 36.6 C Temperature Source Oral Pulse Rate 65 69 77 Pulse Rate [Finger] Pulse Rate from SpO2 Sensor 65 Pulse Rhythm Regular Pulse Strength Normal Respiratory Rate 15 16 19 Respiratory Effort / Characteristics Non-Labored Respiratory Depth Normal Respiratory Pattern Regular Blood Pressure 135/68 Blood Pressure [Right Arm] Blood Pressure Mean 90 Blood Pressure Mean [Right Arm] Blood Pressure Position Lying Pulse Oximetry 98 99 Oxygen Delivery Method Room Air Sepsis Recent Fever Within 48 Hours No Sepsis New/Unexplained Change in Mental Status No Sepsis Action Taken by Nursing No Action Required 06/12/22 17:01 06/12/22 17:01 06/12/22 17:30 Temperature Temperature Source Pulse Rate 68 65 Pulse Rate [Finger] Pulse Rate from SpO2 Sensor Pulse Rhythm Pulse Strength Respiratory Rate 21 20 Respiratory Effort / Characteristics Respiratory Depth Respiratory Pattern Blood Pressure 135/68 147/87 H Blood Pressure [Right Arm] Blood Pressure Mean 90 107 Blood Pressure Mean [Right Arm] Blood Pressure Position Pulse Oximetry Oxygen Delivery Method Sepsis Recent Fever Within 48 Hours Sepsis New/Unexplained Change in Mental Status Sepsis Action Taken by Nursing 06/12/22 17:30 06/12/22 20:14 06/12/22 22:02 Temperature 36.1 C L Temperature Source Oral Pulse Rate 67 Pulse Rate [Finger] 72 75 Pulse Rate from SpO2 Sensor Pulse Rhythm Pulse Strength Respiratory Rate 21 14 20 Respiratory Effort / Characteristics Non-Labored Spontaneous Respiratory Depth Normal Respiratory Pattern Regular Blood Pressure Blood Pressure [Right Arm] 134/63 109/85 Blood Pressure Mean Blood Pressure Mean [Right Arm] 86 93 Blood Pressure Position Pulse Oximetry 95 98 Oxygen Delivery Method Room Air Sepsis Recent Fever Within 48 Hours Sepsis New/Unexplained Change in Mental Status Sepsis Action Taken by Retirement Medications Current Medication List: was personally reviewed by me Laboratory Data Attestation: I reviewed the patient's lab results. Result diagrams: 06/12/22 17:15 06/12/22 17:15 Lab Results 06/12/22 06/12/22 06/12/22 Range/Units 17:15 17:15 17:15 WBC 18.85 H (4.8-10.8) K/ul RBC 4.23 L (4.63-6.08) M/uL Hgb 12.4 L (14.0-18.0) g/dl Hct 36.1 L (40.1-51.0) % MCV 85.3 (80.0-100.0) fL MCH 29.3 (25.0-34.0) pg MCHC 34.3 (32.0-36.0) g/dL RDW Std Deviation 46.5 H (36.4-46.3) fL RDW Coeff of Yonis 15.0 H (11.5-14.5) % Plt Count 213 (130-400) K/uL MPV 11.4 (9.4-12.4) fL Immature Gran % (Auto) 2.2 % Neut % (Auto) 87.8 % Lymph % (Auto) 5.5 % [place] % (Auto) 4.1 % Eos % (Auto) 0.3 % Baso % (Auto) 0.1 % Neut # (Auto) 16.54 H (1.4-6.5) K/uL Lymph # (Auto) 1.04 L (1.2-3.4) K/uL [place] # (Auto) 0.78 (0.24-0.82) K/uL Eos # (Auto) 0.06 (0-0.50) K/uL Baso # (Auto) 0.02 (0-0.2) K/uL Immature Gran # (Auto) 0.41 H (0.00-0.02) K/uL Absolute Nucleated RBC 0.09 H (0-0) K/uL Nucleated RBC % (auto) 0.5 % PT 12.3 H (9.0-12.0) Seconds INR 1.2 H (0.9-1.1) APTT 31.3 H (21.0-31.0) Seconds PTT Ratio 1.1 Sodium 129 L (136-145) mmol/L Potassium 3.9 (3.5-5.1) mmol/L Chloride 96 L (98-107) mmol/L Carbon Dioxide 23 (21-32) mmol/L Anion Gap 10 (3-11) BUN 63 H (6-23) mg/dl Creatinine 1.96 H (0.6-1.4) mg/dl Est Cr Clr Drug Dosing 59.5 ml/min Est GFR ( Amer) 40.7 ml/min Est GFR (Non-Af Amer) 35.1 ml/min BUN/Creatinine Ratio 32.1 H (10-20) Glucose 182 H (70-99(Fasting)) mg/dl Lactate (0.4-2.0) mmol/L Calcium 9.7 (8.5-10.1) mg/dl Magnesium 2.6 H (1.7-2.4) mg/dl Total Bilirubin 0.7 (0.2-1.0) mg/dl AST 48 H (13-39) U/L ALT 193 H (7-52) U/L Alkaline Phosphatase 111 H (34-104) U/L Total Creatine Kinase (30-223) U/L Troponin I High Sens 2446.4 H* (0-20) pg/ml Total Protein 6.3 (6.0-8.3) gm/dl Albumin 3.2 L (3.4-5.0) gm/dl Globulin 3.1 (2.5-4.0) gm/dl Albumin/Globulin Ratio 1.0 (0.9-2) Procalcitonin (0-0.5) ng/ml SARS-CoV-2, RNA, NAAT (NEGATIVE) 06/12/22 06/12/22 06/12/22 Range/Units 17:15 17:15 18:53 WBC (4.8-10.8) K/ul RBC (4.63-6.08) M/uL Hgb (14.0-18.0) g/dl Hct (40.1-51.0) % MCV (80.0-100.0) fL MCH (25.0-34.0) pg MCHC (32.0-36.0) g/dL RDW Std Deviation (36.4-46.3) fL RDW Coeff of Yonis (11.5-14.5) % Plt Count (130-400) K/uL MPV (9.4-12.4) fL Immature Gran % (Auto) % Neut % (Auto) % Lymph % (Auto) % [place] % (Auto) % Eos % (Auto) % Baso % (Auto) % Neut # (Auto) (1.4-6.5) K/uL Lymph # (Auto) (1.2-3.4) K/uL [place] # (Auto) (0.24-0.82) K/uL Eos # (Auto) (0-0.50) K/uL Baso # (Auto) (0-0.2) K/uL Immature Gran # (Auto) (0.00-0.02) K/uL Absolute Nucleated RBC (0-0) K/uL Nucleated RBC % (auto) % PT (9.0-12.0) Seconds INR (0.9-1.1) APTT (21.0-31.0) Seconds PTT Ratio Sodium (136-145) mmol/L Potassium (3.5-5.1) mmol/L Chloride (98-107) mmol/L Carbon Dioxide (21-32) mmol/L Anion Gap (3-11) BUN (6-23) mg/dl Creatinine (0.6-1.4) mg/dl Est Cr Clr Drug Dosing ml/min Est GFR ( Amer) ml/min Est GFR (Non-Af Amer) ml/min BUN/Creatinine Ratio (10-20) Glucose (70-99(Fasting)) mg/dl Lactate (0.4-2.0) mmol/L Calcium (8.5-10.1) mg/dl Magnesium (1.7-2.4) mg/dl Total Bilirubin (0.2-1.0) mg/dl AST (13-39) U/L ALT (7-52) U/L Alkaline Phosphatase (34-104) U/L Total Creatine Kinase 38 (30-223) U/L Troponin I High Sens (0-20) pg/ml Total Protein (6.0-8.3) gm/dl Albumin (3.4-5.0) gm/dl Globulin (2.5-4.0) gm/dl Albumin/Globulin Ratio (0.9-2) Procalcitonin 4.31 H (0-0.5) ng/ml SARS-CoV-2, RNA, NAAT NEGATIVE (NEGATIVE) 06/12/22 06/12/22 Range/Units 19:28 21:13 WBC (4.8-10.8) K/ul RBC (4.63-6.08) M/uL Hgb (14.0-18.0) g/dl Hct (40.1-51.0) % MCV (80.0-100.0) fL MCH (25.0-34.0) pg MCHC (32.0-36.0) g/dL RDW Std Deviation (36.4-46.3) fL RDW Coeff of Yonis (11.5-14.5) % Plt Count (130-400) K/uL MPV (9.4-12.4) fL Immature Gran % (Auto) % Neut % (Auto) % Lymph % (Auto) % [place] % (Auto) % Eos % (Auto) % Baso % (Auto) % Neut # (Auto) (1.4-6.5) K/uL Lymph # (Auto) (1.2-3.4) K/uL [place] # (Auto) (0.24-0.82) K/uL Eos # (Auto) (0-0.50) K/uL Baso # (Auto) (0-0.2) K/uL Immature Gran # (Auto) (0.00-0.02) K/uL Absolute Nucleated RBC (0-0) K/uL Nucleated RBC % (auto) % PT (9.0-12.0) Seconds INR (0.9-1.1) APTT (21.0-31.0) Seconds PTT Ratio Sodium (136-145) mmol/L Potassium (3.5-5.1) mmol/L Chloride (98-107) mmol/L Carbon Dioxide (21-32) mmol/L Anion Gap (3-11) BUN (6-23) mg/dl Creatinine (0.6-1.4) mg/dl Est Cr Clr Drug Dosing ml/min Est GFR ( Amer) ml/min Est GFR (Non-Af Amer) ml/min BUN/Creatinine Ratio (10-20) Glucose (70-99(Fasting)) mg/dl Lactate 2.3 H* 1.2 (0.4-2.0) mmol/L Calcium (8.5-10.1) mg/dl Magnesium (1.7-2.4) mg/dl Total Bilirubin (0.2-1.0) mg/dl AST (13-39) U/L ALT (7-52) U/L Alkaline Phosphatase (34-104) U/L Total Creatine Kinase (30-223) U/L Troponin I High Sens (0-20) pg/ml Total Protein (6.0-8.3) gm/dl Albumin (3.4-5.0) gm/dl Globulin (2.5-4.0) gm/dl Albumin/Globulin Ratio (0.9-2) Procalcitonin (0-0.5) ng/ml SARS-CoV-2, RNA, NAAT (NEGATIVE) Administered Medications Albumin Human (Albumin 25% 100 Ml) 25 gm in 100 mls @ 50 mls/hr IV ONE ONE Stop: 06/12/22 22:12 Last Admin: 06/12/22 21:37 Dose: 50 mls/hr Documented By: LOUISA Discontinued Medications Daptomycin 500 mg/ Syringe 10 mls @ 5 mls/min IV NOW STA; Protocol Stop: 06/12/22 19:02 Last Admin: 06/12/22 19:29 Dose: 5 mls/min Documented By: LOUISA Aztreonam 2,000 mg/ Dextrose 110 mls @ 100 mls/hr IV NOW STA; Protocol Stop: 06/12/22 21:15 Last Infusion: 06/12/22 21:34 Dose: 0 mls/hr Documented By: Admin: 06/12/22 20:34 Dose: 100 mls/hr Documented By: DJR Imaging Data Radiologist's Impression: Chest X-Ray 06/12/22 18:37 XR chest 1V portable CLINICAL HISTORY: Sepsis TECHNIQUE: Single frontal radiograph of the chest was obtained. Comparison: Comparison is made to chest radiograph 05/26/2019 FINDINGS: Exam is limited by underpenetration. Cardiomegaly is noted. Prominence and cephalization of the vasculature is seen. No evidence of pleural effusion or pneumothorax. IMPRESSION: Cardiomegaly and mild pulmonary edema. No evidence of pneumonia is seen. ACT 112: Negative or not required by law. Electronically signed by: Elliott Gonzales M.D. 06/12/2022 7:38 PM Venous Doppler Study 06/12/22 19:01 US venous doppler LE LT CLINICAL HISTORY: swelling TECHNIQUE: Right lower extremity real-time compression venous ultrasound with Color Doppler imaging. Utilizing real-time ultrasonic imaging multiple real time high-resolution ultrasonic images with compression and noncompression maneuvers of the deep venous system in addition to color doppler imaging were performed f rom the common femoral vein through the proximal calf veins. COMPARISON: None available at the time of this dictation. FINDINGS: Currently there is normal compressibility of the deep venous system from the common femoral vein through the proximal calf veins. Soft tissue edema is noted in the calf. Impression: No evidence of deep venous thrombus. ACT 112: Negative or not required by law. Electronically signed by: Elliott Gonzales M.D. 06/12/2022 8:29 PM Discharge Plan Visit Data Chief Complaint: Infection, Wound ED Provider: Laureano Jin Discharge Problem: Cellulitis, Failure of outpatient treatment, Elevated troponin, Leukocytosis, Acute hyponatremia Patient Disposition: Admitted As Inpatient Condition: Fair Forms Stand Alone Forms: My [facility] Prescriptions Prescriptions: No Action docusate sodium 100 mg Capsule 100 mg PO BID PRN (Reason: Constipation) albuterol sulfate [Ventolin HFA] 90 mcg/actuation HFA aerosol inhaler 2 puff inhalation Q4 PRN (Reason: Wheezing) Label Comments: patient uses PRN ergocalciferol (vitamin D2) [Vitamin D2] 50,000 unit Capsule 50,000 unit PO WK Label Comments: takes every thursday furosemide 40 mg tablet 40 mg PO DAILY Rx Instructions: may take 1 extra tablet per day if needed for weight gain greater than 2 lbs metoprolol succinate 25 mg tablet extended release 24 hr 25 mg PO DAILY Novolin N Flexpen 100 unit/mL (3 mL) insulin pen 50 unit SUBCUT BID metformin 500 mg tablet 500 mg PO BIDM atorvastatin 40 mg tablet 40 mg PO DAILY clopidogrel 75 mg tablet 75 mg PO DAILY isosorbide mononitrate 30 mg tablet extended release 24 hr 30 mg PO QAM aspirin [Aspirin Childrens] 81 mg Tablet,Chewable 81 mg PO DAILY Rx Instructions: take with food ondansetron 4 mg tablet,disintegrating 4 mg translingual Q8 PRN (Reason: Nausea) Novolin R Flexpen 100 unit/mL (3 mL) insulin pen 0 sliding scale dose SUBCUT QID Rx Instructions: inject based on carb counting. use up to maximum of 120 units per day fluticasone propionate 50 mcg/actuation spray,suspension 2 spray INTRANASAL DAILY calcium carbonate-vitamin D3 [Calcium 600 + D(3)] 600 mg-5 mcg (200 unit) Tablet 2 tab PO DAILY acetaminophen [Tylenol Extra Strength] 500 mg Tablet 1,000 mg PO TID PRN (Reason: Fever Or Pain) Referrals Referrals: Dion Snider MD [Primary Care Provider] -
[2022-06-12 19:15] LABS: Albumin Level 3.2 gm/dl (3.4-5.0); BUN Creatinine Ratio 32.1 (10-20); Bilirubin,Total 0.7 mg/dl (0.2-1.0); Calcium 9.7 mg/dl (8.5-10.1); Creatinine Clr Calc Pharmacy 59.5 ml/min; Est GFR (African American) 40.7 ml/min; Est GFR (Non-African American) 35.1 ml/min; Globulin 3.1 gm/dl (2.5-4.0); Magnesium 2.6 mg/dl (1.7-2.4); Potassium 3.9 mmol/L (3.5-5.1); Total Protein 6.3 gm/dl (6.0-8.3)
[2022-06-12 19:25] LABS: Troponin I High Sensitivity 2446.4 pg/ml (0-20)
--- NOTE | 2022-06-12 19:40 | XRay Report ---
XR chest 1V portable CLINICAL HISTORY: Sepsis TECHNIQUE: Single frontal radiograph of the chest was obtained. Comparison: Comparison is made to chest radiograph 05/26/2019 FINDINGS: Exam is limited by underpenetration. Cardiomegaly is noted. Prominence and cephalization of the vascu lature is seen. No evidence of pleural effusion or pneumothorax. IMPRESSION: Cardiomegaly and mild pulmonary edema. No evidence of pneumonia is seen. ACT 112: Negative or not required by law. Electronically signed by: Elliott Gonzales M.D. 06/12/2022 7:38 PM
[2022-06-12] MEDS ORDERED: AZTREONAM 2,000 MG in DEXTROSE 5% 100 ML IV STA (20:10)
[2022-06-12] MEDS ORDERED: ALBUMIN 25% 100 mL 25 GM/100 ML VIAL IV ONE (20:13)
--- NOTE | 2022-06-12 20:30 | Ultrasound Report ---
US venous doppler LE LT CLINICAL HISTORY: swelling TECHNIQUE: Right lower extremity real-time compression venous ultrasound with Color Doppler imaging. Utilizing real-time ultrasonic imaging multiple real time high-resolution ultrasonic images with comp ression and noncompression maneuvers of the deep venous system in addition to color doppler imaging w ere performed from the common femoral vein through the proximal calf veins. COMPARISON: None available at the time of this dictation. FINDINGS: Currently there is normal compressibility of the deep venous system from the common femoral vein thro ugh the proximal calf veins. Soft tissue edema is noted in the calf. Impression: No evidence of deep venous thrombus. ACT 112: Negative or not required by law. Electronically signed by: Elliott Gonzales M.D. 06/12/2022 8:29 PM
--- NOTE | 2022-06-12 21:26 | History & Physical Report ---
Date of Service June 12, 2022 Assessment & Plan (1) Diabetic foot infection: Plan: L DM foot infection with secondary spread to the leg Failed outpatient treatment no overt sepsis for now Rule out osteomyelitis/bony injury given history of trauma Asymptomatic troponin elevation in the setting of chronic CHF and abnormal kidney dysfunction Hyponatremia, ARF on CRI secondary to illness chronic systolic heart failure, equivocal volume status, patient intravascularly dry but with pulmonary congestion hx CAD status post stent/PVD chronic LBBB HTN, BP stable DM 2 insulin requiring, reasonable control as of recent hemoglobin A1c of 7.6 last May 15 Acute on chronic anemia, slight drop from last outpatient baseline Possible functional disability past tobacco abuse PCU given troponin elevation Follow troponin TTE CS, Daptomycin, Azactam Plain x-rays of the left lower extremity May need MRI to definitely rule out osteomyelitis Offload LLE Podiatry consult Re: Diabetic foot infection Hyponatremia work-up Baseline UA, monitor creatinine response to IV albumin (preferred over crystalloid given pulmonary congestion and x-ray) Resume home Lasix when patient euvolemic. May benefit from Nephrology consultation if without improvement Anemia work-up, transfuse PRBC to maintain hemoglobin above 8 Basal bolus insulin, ISS BG goal 1 10-1 40, carb count coverage PT OT eval DVT prophylaxis. Heparin subcu DNR Text document was generated using [employer] voice recognition software. It may contain grammatical or spelling errors. Kindly contact undersigned for clarification of any documentation item in question. History of Present Illness Chief Complaint: Confusion, worsening left leg infection as per records Primary Care Provider: Dion Snider MD History obtained from patient and records. Medical history significant for chronic systolic heart failure (EF 25 to 29%, TTE 2018), CAD status post stent, PVD, chronic LBBB, HTN, DM 2 insulin requiring, CRI (baseline creatinine 1.3 -1.4), chronic anemia (new baseline of 13 from April 2022), past tobacco abuse. Last confinement May 2020 for left third finger infection status post amputation. 2 weeks ago, patient noted to have a wound on the left calf started with a blister. Wound improved on its own as per patient. Last week, patient noted to have wounds on the third and fifth toes of the left foot. Subsequent involvement of the left fourth toe which spread to the foot dorsal noted by home nurse. Serosanguineous [id number] drainage noted. Clindamycin prescribed by outpatient provider. Mechanical fall from a few days ago with some right leg discomfort. No headache, no syncope, no chest pain, no SOB. No fluid retention. Denies abdominal pain, black/bloody stools. Patient denies overt bleeding. Left foot swelling extending to the upper leg noted the last few days. Patient a little drowsy as per family. Patient brought to the ER for evaluation. IV Daptomycin administered at the ER. MEDICAL HISTORY: As above. SURGICAL HISTORY: RLE amputation, back surgery, finger amputation FAMILY HISTORY: Diabetes, heart disease. PERSONAL AND SOCIAL HISTORY: Past tobacco abuse, occasional EtOH intake, disabled, lives with son who acts as his caregiver. Allergies Allergy/AdvReac Type Severity Reaction Status Date / Time ceftriaxone Allergy Severe ANAPHYLAXIS Verified 06/12/22 21:00 lidocaine Allergy Severe ANAPHYLAXIS Verified 06/12/22 21:00 -BRADYCARDI A Home Medications Medication Instructions Recorded Confirmed Type albuterol sulfate 90 mcg/actuation 2 puff inhalation Q4 PRN Wheezing 05/26/19 06/12/22 History aerosol inhaler (Ventolin HFA) docusate sodium 100 mg capsule 100 mg PO BID PRN Constipation 05/26/19 06/12/22 History ergocalciferol (vitamin D2) 1,250 50,000 unit PO WK 05/26/19 06/12/22 History mcg (50,000 unit) capsule (Vitamin D2) atorvastatin 40 mg tablet 40 mg PO DAILY 06/06/20 06/12/22 History furosemide 40 mg tablet 40 mg PO DAILY 06/06/20 06/12/22 History insulin NPH isoph U-100 human 100 50 unit subcut BID 06/06/20 06/12/22 History unit/mL (3 mL) subcutaneous pen (Novolin N Flexpen) metformin 500 mg tablet 500 mg PO BIDM 06/06/20 06/12/22 History metoprolol succinate 25 mg 25 mg PO DAILY 06/06/20 06/12/22 History tablet,extended release 24 hr clopidogrel 75 mg tablet 75 mg PO DAILY 06/07/20 06/12/22 History acetaminophen 500 mg tablet 1,000 mg PO TID PRN Fever Or Pain 06/12/22 06/12/22 History (Tylenol Extra Strength) aspirin 81 mg chewable tablet 81 mg PO DAILY 06/12/22 06/12/22 History (Aspirin Childrens) calcium carbonate 600 mg-vitamin 2 tab PO DAILY 06/12/22 06/12/22 History D3 5 mcg (200 unit) tablet (Calcium 600 + D(3)) fluticasone propionate 50 2 spray intranasal DAILY 06/12/22 06/12/22 History mcg/actuation nasal spray,suspension insulin regular human 100 unit/mL 0 sliding scale dose subcut QID 06/12/22 06/12/22 History (3 mL) subcutaneous pen (Novolin R Flexpen) isosorbide mononitrate 30 mg 30 mg PO QAM 06/12/22 06/12/22 History tablet,extended release 24 hr ondansetron 4 mg disintegrating 4 mg translingual Q8 PRN Nausea 06/12/22 06/12/22 History tablet Past Med/Surg History Medical History (Updated 06/13/22 @ 06:31 by Manuelito Han MD) Cardiomyopathy Charcot ankle CKD (chronic kidney disease), stage III Diabetes mellitus, type II Dyslipidemia Heart failure EF 30-35% from 06/11 echocardiogram HTN (hypertension) Morbid obesity NSTEMI (non-ST elevated myocardial infarction) PVD (peripheral vascular disease) Type 2 diabetes mellitus Surgical History Below knee amputation History of right below knee amputation Family History Other Cancer Coronary heart disease Diabetes Social History Smoking Status: Never smoker Tobacco Type: Smokeless Tobacco (Dip or Chew) Second Hand Exposure: No; Do You Dip or Chew Tobacco: Yes; Hx Alcohol Use: Yes Alcohol type: hard liquor Hx Substance Use: No Preferred Language: Brazilian Communication Ability: Effective 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 Beliefs That Will Affect Care: None marital status: Current Living Situation: Alone How many Children do You have: 2 Other Information That Helps Us Care for You: No Feels Safe at Home: Yes Safety Concerns: Feels Safe At This Time Assistive Devices: Cane, Glasses and Wheelchair Review of Systems Review of Systems: As per HPI, all other systems reviewed and negative Physical Exam Physical Exam: GENERAL: Comfortable, morbidly obese, awake, no respiratory distress SKIN: Pallor,, warm HEENT: Alopecia, pale palpebral conjunctivae, no ptosis, dry buccal mucosa NECK : Supple, short neck, no tenderness CHEST : Decreased breath sounds, no tenderness HEART : Diminished S1-S2, no obvious murmurs ABDOMEN: distention, nontender RECTAL : Refused EXTREMITIES : RLE stump, indurated swelling, bandaged left foot, extending to left lower leg. minimal left foot tenderness NEUROLOGIC : Coherent, no facial asymmetry, gait and stance not assessed Results & Data Results & Data ([facility]) Vital Signs (Past 12 Hours) Vital Signs Temp Pulse Pulse Resp BP BP Pulse Ox 06/12/22 20:14 36.1 C L 72 14 134/63 95 06/12/22 17:30 67 21 06/12/22 17:30 65 20 147/87 H 06/12/22 17:01 68 21 06/12/22 17:01 135/68 06/12/22 17:00 77 19 06/12/22 16:58 69 16 99 06/12/22 16:55 36.6 C 65 15 135/68 98 O2 Del Method 06/12/22 20:14 Room Air 06/12/22 17:30 06/12/22 17:30 06/12/22 17:01 06/12/22 17:01 06/12/22 17:00 06/12/22 16:58 06/12/22 16:55 Room Air Laboratory Results Laboratory Results WBC 18.85 K/ul (4.8-10.8) H 06/12/22 17:15 RBC 4.23 M/uL (4.63-6.08) L 06/12/22 17:15 Hgb 12.4 g/dl (14.0-18.0) L 06/12/22 17:15 Hct 36.1 % (40.1-51.0) L 06/12/22 17:15 MCV 85.3 fL (80.0-100.0) 06/12/22 17:15 MCH 29.3 pg (25.0-34.0) 06/12/22 17:15 MCHC 34.3 g/dL (32.0-36.0) 06/12/22 17:15 RDW Std Deviation 46.5 fL (36.4-46.3) H 06/12/22 17:15 RDW Coeff of Yonis 15.0 % (11.5-14.5) H 06/12/22 17:15 Plt Count 213 K/uL (130-400) 06/12/22 17:15 MPV 11.4 fL (9.4-12.4) 06/12/22 17:15 Immature Gran % (Auto) 2.2 % 06/12/22 17:15 Neut % (Auto) 87.8 % 06/12/22 17:15 Lymph % (Auto) 5.5 % 06/12/22 17:15 Mclennan % (Auto) 4.1 % 06/12/22 17:15 Eos % (Auto) 0.3 % 06/12/22 17:15 Baso % (Auto) 0.1 % 06/12/22 17:15 Neut # (Auto) 16.54 K/uL (1.4-6.5) H 06/12/22 17:15 Lymph # (Auto) 1.04 K/uL (1.2-3.4) L 06/12/22 17:15 Mclennan # (Auto) 0.78 K/uL (0.24-0.82) 06/12/22 17:15 Eos # (Auto) 0.06 K/uL (0-0.50) 06/12/22 17:15 Baso # (Auto) 0.02 K/uL (0-0.2) 06/12/22 17:15 Immature Gran # (Auto) 0.41 K/uL (0.00-0.02) H 06/12/22 17:15 Absolute Nucleated RBC 0.09 K/uL (0-0) H 06/12/22 17:15 Nucleated RBC % (auto) 0.5 % 06/12/22 17:15 PT 12.3 Seconds (9.0-12.0) H 06/12/22 17:15 INR 1.2 (0.9-1.1) H 06/12/22 17:15 APTT 31.3 Seconds (21.0-31.0) H 06/12/22 17:15 PTT Ratio 1.1 06/12/22 17:15 Sodium 129 mmol/L (136-145) L 06/12/22 17:15 Potassium 3.9 mmol/L (3.5-5.1) 06/12/22 17:15 Chloride 96 mmol/L (98-107) L 06/12/22 17:15 Carbon Dioxide 23 mmol/L (21-32) 06/12/22 17:15 Anion Gap 10 (3-11) 06/12/22 17:15 BUN 63 mg/dl (6-23) H 06/12/22 17:15 Creatinine 1.96 mg/dl (0.6-1.4) H 06/12/22 17:15 Est Cr Clr Drug Dosing 59.5 ml/min 06/12/22 17:15 Est GFR ( Amer) 40.7 ml/min 06/12/22 17:15 Est GFR (Non-Af Amer) 35.1 ml/min 06/12/22 17:15 BUN/Creatinine Ratio 32.1 (10-20) H 06/12/22 17:15 Glucose 182 mg/dl (70-99(Fasting)) H 06/12/22 17:15 Lactate 2.3 mmol/L (0.4-2.0) H* 06/12/22 19:28 Calcium 9.7 mg/dl (8.5-10.1) 06/12/22 17:15 Magnesium 2.6 mg/dl (1.7-2.4) H 06/12/22 17:15 Total Bilirubin 0.7 mg/dl (0.2-1.0) 06/12/22 17:15 AST 48 U/L (13-39) H 06/12/22 17:15 ALT 193 U/L (7-52) H 06/12/22 17:15 Alkaline Phosphatase 111 U/L (34-104) H 06/12/22 17:15 Total Creatine Kinase 38 U/L (30-223) 06/12/22 18:53 Troponin I High Sens 2446.4 pg/ml (0-20) H* 06/12/22 17:15 Total Protein 6.3 gm/dl (6.0-8.3) 06/12/22 17:15 Albumin 3.2 gm/dl (3.4-5.0) L 06/12/22 17:15 Globulin 3.1 gm/dl (2.5-4.0) 06/12/22 17:15 Albumin/Globulin Ratio 1.0 (0.9-2) 06/12/22 17:15 Procalcitonin 4.31 ng/ml (0-0.5) H 06/12/22 17:15 SARS-CoV-2, RNA, NAAT NEGATIVE (NEGATIVE) 06/12/22 17:15 Impressions Chest X-Ray 06/12/22 18:37 XR chest 1V portable CLINICAL HISTORY: Sepsis TECHNIQUE: Single frontal radiograph of the chest was obtained. Comparison: Comparison is made to chest radiograph 05/26/2019 FINDINGS: Exam is limited by underpenetration. Cardiomegaly is noted. Prominence and cephalization of the vasculature is seen. No evidence of pleural effusion or pneumothorax. IMPRESSION: Cardiomegaly and mild pulmonary edema. No evidence of pneumonia is seen. ACT 112: Negative or not required by law. Electronically signed by: Elliott Gonzales M.D. 06/12/2022 7:38 PM Venous Doppler Study 06/12/22 19:01 US venous doppler LE LT CLINICAL HISTORY: swelling TECHNIQUE: Right lower extremity real-time compression venous ultrasound with Color Doppler imaging. Utilizing real-time ultrasonic imaging multiple real time high-resolution ultrasonic images with compression and noncompression maneuvers of the deep venous system in addition to color doppler imaging were performed from the common femoral vein through the proximal calf veins. COMPARISON: None available at the time of this dictation. FINDINGS: Currently there is normal compressibility of the deep venous system from the common femoral vein through the proximal calf veins. Soft tissue edema is noted in the calf. Impression: No evidence of deep venous thrombus. ACT 112: Negative or not required by law. Electronically signed by: Elliott Gonzales M.D. 06/12/2022 8:29 PM Diagnostic Findings EKG as per my interpretation :Rate 65, NSR, LAD, LAFB, LBBB
[2022-06-12] MEDS ORDERED: GLUCOSE 40% GEL 15 GM TUBE PO PRN (23:52)
[2022-06-12] MEDS ORDERED: HYDROmorphone INJ 0.5 MG/0.5 ML SYR IV PRN (23:52)
[2022-06-12] MEDS ORDERED: PROMETHAZINE HCL 12.5 MG in SODIUM CHLORIDE 0.9% 50 ML IV PRN (23:52)
[2022-06-12] MEDS ORDERED: CARBOHYDRATES FOR HYPOGLYCEMIA PO PRN (23:52)
[2022-06-12] MEDS ORDERED: ACETAMINOPHEN 325 MG TAB PO PRN (23:52)
[2022-06-12] MEDS ORDERED: DEXTROSE 50% 50 ML SYRINGE IV PRN (23:52)
[2022-06-12] MEDS ORDERED: NITROGLYCERIN SL 0.4 MG/TAB TAB SL PRN (23:52)
[2022-06-12] MEDS ORDERED: GLUCAGON FOR INJ 1 MG VIAL SQ PRN (23:52)
[2022-06-12] MEDS ORDERED: GLUCOSE 10 TAB/TUBE PO PRN (23:52)
[2022-06-13] MEDS: INSULIN ASPART PER UNIT SC SCH ×6 (01:00→21:11)
[2022-06-13] MEDS: traMADol HCL 50 MG TABLET PO PRN ×2 (01:00→09:13)
[2022-06-13] MEDS: LANTUS PER UNIT CHARGE SQ SCH ×4 (01:00→21:11)
[2022-06-13 01:19] LABS: Hematocrit (blood only) 36.1 % (40.1-51.0); Hemoglobin 12.4 g/dl (14.0-18.0); Reticulocyte % 1.8 % (0.5-2.0); Reticulocytes # 0.07 10^6/uL (0.02-0.10)
[2022-06-13 01:27] LABS: Appearance Urine Clear (Clear); Bilirubin Urine Negative (Negative); Blood Urine Negative (Negative); Color Urine Yellow; Glucose Urine UA Negative (Negative); Ketones Urine Negative (Negative); Leukocyte Esterase Urine Negative (Negative); Nitrite Urine Negative (Negative); Protein Urine Negative (Negative); Specific Gravity Urine 1.015 (1.000-1.030); Urobilinogen Urine Negative (Negative); pH Urine 5.5 (4.5-7.5)
[2022-06-13 01:59] LABS: BUN Creatinine Ratio 33.1 (10-20); Calcium 10.2 mg/dl (8.5-10.1); Creatinine Clr Calc Pharmacy 65.7 ml/min; Est GFR (African American) 44.8 ml/min; Est GFR (Non-African American) 38.6 ml/min; Potassium 3.9 mmol/L (3.5-5.1)
[2022-06-13 02:00] LABS: Ferritin 177.8 ng/ml (8-388)
[2022-06-13 02:02] LABS: Troponin I High Sensitivity 2178.4 pg/ml (0-20)
[2022-06-13] MEDS: ALBUMIN 25% 100 mL 25 GM/100 ML VIAL IV SCH ×3 (03:54→18:44)
[2022-06-13] MEDS: HEPARIN SOD 5,000 UNIT/0.5 ML VIAL SQ SCH ×3 (05:57→20:50)
[2022-06-13] MEDS: AZTREONAM 1,000 MG in DEXTROSE 5% 100 ML IV SCH ×3 (05:57→22:33)
[2022-06-13 06:32] LABS: Basophils # (auto) 0.03 K/uL (0-0.2); Basophils % (auto) 0.2 %; Eosinophils # (auto) 0.07 K/uL (0-0.50); Eosinophils % (auto) 0.4 %; Hematocrit (blood only) 33.4 % (40.1-51.0); Hemoglobin 11.4 g/dl (14.0-18.0); Immature Granulocytes # (auto) 0.26 K/uL (0.00-0.02); Immature Granulocytes % (auto) 1.6 %; Lymphocytes # (auto) 1.19 K/uL (1.2-3.4); Lymphocytes % (auto) 7.2 %; Mean Corpuscular Hemoglobin 28.9 pg (25.0-34.0); Mean Corpuscular Hgb Conc 34.1 g/dL (32.0-36.0); Mean Corpuscular Volume 84.6 fL (80.0-100.0); Mean Platelet Volume 10.8 fL (9.4-12.4); Monocytes # (auto) 0.81 K/uL (0.24-0.82); Monocytes % (auto) 4.9 %; Neutrophils # (auto) 14.11 K/uL (1.4-6.5); Neutrophils % (auto) 85.7 %; Nucleated RBC # (auto) 0.08 K/uL (0-0); Nucleated RBC % (auto) 0.5 %; Platelet Count 242 K/uL (130-400); RDW Coefficient of Variation 14.8 % (11.5-14.5); RDW Standard Deviation 45.6 fL (36.4-46.3); Red Blood Count 3.95 M/uL (4.63-6.08); White Blood Count 16.47 K/ul (4.8-10.8)
[2022-06-13 06:41] LABS: Calcium 9.9 mg/dl (8.5-10.1); Creatinine Clr Calc Pharmacy 73.8 ml/min; Est GFR (African American) 51.6 ml/min; Est GFR (Non-African American) 44.5 ml/min; Potassium 3.6 mmol/L (3.5-5.1)
--- NOTE | 2022-06-13 08:59 | Electrocardiogram Report ---
Test Reason : Blood Pressure : / mmHG Vent. Rate : 067 BPM Atrial Rate : 067 BPM P-R Int : 148 ms QRS Dur : 180 ms QT Int : 478 ms P-R-T Axes : 055 -16 128 degrees QTc Int : 505 ms Normal sinus rhythm Left bundle branch block Abnormal ECG When compared with ECG of 07-JUN-2020 06:34, IVCD replaced by Left bundle branch block Confirmed by Bryant Austin ([id number]) on 06/13/2022 8:59:12 AM Referred By: REFERRED SELF Confirmed By:Bryant Austin
[2022-06-13] MEDS ORDERED: FLUARIX QUADRIVALENT 0.5 ML SYR IM ONE (09:00)
[2022-06-13] MEDS: METOPROLOL SUCC 25MG EXT REL TAB PO SCH (09:06)
[2022-06-13] MEDS: CLOPIDOGREL BISULFATE 75 MG TAB PO SCH (09:06)
[2022-06-13] MEDS: ISOSORBIDE MONO EXTENDED REL 30 MG TABCR PO SCH (09:06)
[2022-06-13] MEDS: ASPIRIN 81 MG ECTAB PO SCH (09:07)
--- NOTE | 2022-06-13 10:13 | XRay Report ---
XR tibia fibula LT 2V, XR foot LT 2V HISTORY: 66 years-old Male swelling, hx fall acute pain of the left foot and lower leg status post f all COMPARISON: Doppler study of same day TECHNIQUE: 2 views of the left tibia and fibula with 2 views of the left foot FINDINGS: TIBIA/FIBULA: Diffuse soft tissue swelling with arterial calcifications. Osteoarthritis of the knee, moderate withi n the medial and patellofemoral compartments. No acute fracture, dislocation or osseous erosion. FOOT: Diffuse soft tissue swelling with arterial calcifications. Demineralized appearance of the bones. No acute fracture, dislocation or osseous erosion. Spurring of the calcaneus. Moderate multifocal osteoa rthritis. IMPRESSION: Diffuse soft tissue swelling without acute fracture or dislocation identified. ACT 112: Negative or not required by law. The above report was generated using voice recognition software. It may contain grammatical, syntax o r spelling errors. Electronically signed by: Familia Moya M.D. 06/13/2022 10:12 AM
[2022-06-13 18:33] LABS: A calco-baum cmplx NotReported Not Detected (NotDetected); Bact fragilis Not Reported Not Detected (NotDetected); C auris Not Reported Not Detected (NotDetected); Calbicans Not Reported Not Detected (NotDetected); Candida glabrata Not Reported Not Detected (NotDetected); Candida krusei Not Reported Not Detected (NotDetected); Cneoformans/gatti Not Reported Not Detected (NotDetected); Cparapsilosis Not Reported Not Detected (NotDetected); Ctropicalis Not Reported Not Detected (NotDetected); E cloacae compx Not Reported Not Detected (NotDetected); Efaecalis Not Reported Not Detected (NotDetected); Efaecium Not Reported Not Detected (NotDetected); Enterobacterales Not Reported Not Detected (NotDetected); Escherichia coli Not Reported Not Detected (NotDetected); H influenzae Not Reported Not Detected (NotDetected); K aerogenes Not Reported Not Detected (NotDetected); Koxytoca Not Reported Not Detected (NotDetected); Kpneumoniae grp Not Reported Not Detected (NotDetected); Lmonocyt Not Reported Not Detected (NotDetected); N meningitidis Not Reported Not Detected (NotDetected); P aeruginosa Not Reported Not Detected (NotDetected); Proteus spp Not Reported Not Detected (NotDetected); Salmonella spp Not Reported Not Detected (NotDetected); Smarcescens Not Reported Not Detected (NotDetected); Staph lugdunensis Not Reported Not Detected (NotDetected); Staphaureus Not Reported Not Detected (NotDetected); Staphepi Not Reported Not Detected (NotDetected); Staphylococcus spp. DETECTED (NotDetected); Stenmaltophilia Not Reported Not Detected (NotDetected); Strep agal(GrpB) Not Reported Not Detected (NotDetected); Strep pneum Not Reported Not Detected (NotDetected); Strep pyog (GrpA) Not Reported Not Detected (NotDetected); Strep spp Not Reported Not Detected (NotDetected)
[2022-06-13 18:40] LABS: Staph spp. Not Reported DETECTED (NotDetected)
[2022-06-13] MEDS: DAPTOmycin 450 MG in SYRINGE 0 ML IV SCH (20:50)
--- NOTE | 2022-06-13 22:39 | Orthopedic Consultation ---
Date of Consultation June 13, 2022 Assessment & Plan (1) Diabetic foot infection: Patient seen, evaluated, and treated. Reviewed labs and x-rays as well as x-ray findings. Awaiting culture and sensitivities. Cont IV abx therapy. Foot wounds appear to have developed from interdigital maceration. Spacers with DSD applied. Will continue to evaluate while in house. Thank you for allowing me to participate in the care of this Patient. (2) Cellulitis: (3) Failure of outpatient treatment: (4) Leukocytosis: (5) History of right below knee amputation: (6) Diabetes mellitus, type II: History of Present Illness Attending Physician: Richard Orlando MD History of Present Illness Patient is an insulin dependent, type II diabetic, 66-year-old male with history of right BKA who presents to the [facility] 1 day earlier with a left leg infection after failing out patient oral clindamycin for a left leg cellulitis. He is seen at bedside in no acute distress. Allergies Allergy/AdvReac Type Severity Reaction Status Date / Time ceftriaxone Allergy Severe ANAPHYLAXIS Verified 06/12/22 21:00 lidocaine Allergy Severe ANAPHYLAXIS Verified 06/12/22 21:00 -BRADYCARDI A Home Medications Medication Instructions Recorded Confirmed Type albuterol sulfate 90 mcg/actuation 2 puff inhalation Q4 PRN Wheezing 05/26/19 06/12/22 History aerosol inhaler (Ventolin HFA) docusate sodium 100 mg capsule 100 mg PO BID PRN Constipation 05/26/19 06/12/22 History ergocalciferol (vitamin D2) 1,250 50,000 unit PO WK 05/26/19 06/12/22 History mcg (50,000 unit) capsule (Vitamin D2) atorvastatin 40 mg tablet 40 mg PO DAILY 06/06/20 06/12/22 History furosemide 40 mg tablet 40 mg PO DAILY 06/06/20 06/12/22 History insulin NPH isoph U-100 human 100 50 unit subcut BID 06/06/20 06/12/22 History unit/mL (3 mL) subcutaneous pen (Novolin N Flexpen) metformin 500 mg tablet 500 mg PO BIDM 06/06/20 06/12/22 History metoprolol succinate 25 mg 25 mg PO DAILY 06/06/20 06/12/22 History tablet,extended release 24 hr clopidogrel 75 mg tablet 75 mg PO DAILY 06/07/20 06/12/22 History acetaminophen 500 mg tablet 1,000 mg PO TID PRN Fever Or Pain 06/12/22 06/12/22 History (Tylenol Extra Strength) aspirin 81 mg chewable tablet 81 mg PO DAILY 06/12/22 06/12/22 History (Aspirin Childrens) calcium carbonate 600 mg-vitamin 2 tab PO DAILY 06/12/22 06/12/22 History D3 5 mcg (200 unit) tablet (Calcium 600 + D(3)) fluticasone propionate 50 2 spray intranasal DAILY 06/12/22 06/12/22 History mcg/actuation nasal spray,suspension insulin regular human 100 unit/mL 0 sliding scale dose subcut QID 06/12/22 06/12/22 History (3 mL) subcutaneous pen (Novolin R Flexpen) isosorbide mononitrate 30 mg 30 mg PO QAM 06/12/22 06/12/22 History tablet,extended release 24 hr ondansetron 4 mg disintegrating 4 mg translingual Q8 PRN Nausea 06/12/22 06/12/22 History tablet Patient History Medical History (Updated 06/13/22 @ 06:31 by Manuelito Han MD) Cardiomyopathy Charcot ankle CKD (chronic kidney disease), stage III Diabetes mellitus, type II Dyslipidemia Heart failure EF 30-35% from 06/11 echocardiogram HTN (hypertension) Morbid obesity NSTEMI (non-ST elevated myocardial infarction) PVD (peripheral vascular disease) Type 2 diabetes mellitus Surgical History Below knee amputation History of right below knee amputation Family History Other Cancer Coronary heart disease Diabetes Social History Smoking Status: Never smoker Tobacco Type: Smokeless Tobacco (Dip or Chew) Second Hand Exposure: No; Do You Dip or Chew Tobacco: Yes; Hx Alcohol Use: Yes Alcohol type: hard liquor Hx Substance Use: No Preferred Language: Kinyarwanda Communication Ability: Effective 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 Beliefs That Will Affect Care: None marital status: Current Living Situation: Alone How many Children do You have: 2 Other Information That Helps Us Care for You: No Feels Safe at Home: Yes Safety Concerns: Feels Safe At This Time Assistive Devices: Cane, Prosthesis, Walker and Wheelchair Review of Systems Review of Systems: All systems reviewed & are unremarkable except as noted in HPI & below Physical Exam Constitutional: No constitutional symptoms ENMT: external ear and nose normal, oropharynx normal Neck: trachea midline, no thyromegaly Respiratory: normal respiratory effort, lungs clear to auscultation Cardiovascular: Dorsalis pedis and posterior tibial pulses palpable left. Capillary refill time within normal limits. Absence of leg and pedal hair. Proximal distal cooling within normal limits. Musculoskeletal: Right BKA Skin: Left foot interdigital maceration third and fourth interspace. Plantar left fourth partial thickness ulcer. Erythema noted to left foot ankle and leg Neurologic: Decreased epicritic sensation Psychiatric: Orientation: oriented x 3 Lymphatic: Left lower extremity non pitting edema. Results & Data ([facility]) Vital Signs (Past 12 Hours) Vital Signs Temp Pulse Pulse Resp BP Pulse Ox O2 Del Method 06/13/22 19:28 37.2 C 83 18 148/93 H 92 Room Air 06/13/22 16:30 36.8 C 75 18 131/74 96 06/13/22 15:21 88 06/13/22 11:30 36.8 C 73 18 131/74 97 Diagnostic Findings XR tibia fibula LT 2V, XR foot LT 2V HISTORY: 66 years-old Male swelling, hx fall acute pain of the left foot and lower leg status post fall COMPARISON: Doppler study of same day TECHNIQUE: 2 views of the left tibia and fibula with 2 views of the left foot FINDINGS: TIBIA/FIBULA: Diffuse soft tissue swelling with arterial calcifications. Osteoarthritis of the knee, moderate within the medial and patellofemoral compartments. No acute fracture, dislocation or osseous erosion. FOOT: Diffuse soft tissue swelling with arterial calcifications. Demineralized appearance of the bones. No acute fracture, dislocation or osseous erosion. Spurring of the calcaneus. Moderate multifocal osteoarthritis. IMPRESSION: Diffuse soft tissue swelling without acute fracture or dislocation identified. ACT 112: Negative or not required by law. The above report was generated using voice recognition software. It may contain grammatical, syntax or spelling errors. Electronically signed by: Familia Moya M.D. 06/13/2022 10:12 AM XR tibia fibula LT 2V, XR foot LT 2V HISTORY: 66 years-old Male swelling, hx fall acute pain of the left foot and lower leg status post fall COMPARISON: Doppler study of same day TECHNIQUE: 2 views of the left tibia and fibula with 2 views of the left foot FINDINGS: TIBIA/FIBULA: Diffuse soft tissue swelling with arterial calcifications. Osteoarthritis of the knee, moderate within the medial and patellofemoral compartments. No acute fracture, dislocation or osseous erosion. FOOT: Diffuse soft tissue swelling with arterial calcifications. Demineralized appearance of the bones. No acute fracture, dislocation or osseous erosion. Spurring of the calcaneus. Moderate multifocal osteoarthritis. IMPRESSION: Diffuse soft tissue swelling without acute fracture or dislocation identified. ACT 112: Negative or not required by law. The above report was generated using voice recognition software. It may contain grammatical, syntax or spelling errors. Electronically signed by: Familia Moya M.D [place], [place] [phone] Ultrasound Report Patient:FRANCOIS MAZARIEGOS Admit Date:06/12/22 MR#:[id number] Address1:[address] [place] [address] Acct ID:[id number] Address2:[place] [address] Date:1955 [facility] Zip:[place] [address] Age:66 Location:ED Sex:M Room/Bed: Att Phy: Diagnosis:INFETION WOUND Anuja Phy:Dion Snider MD Service Date:06/12/22 [facility] Phy: Interpreting Phy:Elliott Gonzales MDAdmit Phy: Ordering Phy:Laureano Jin M.D. cc: ~ US venous doppler LE LT CLINICAL HISTORY: swelling TECHNIQUE: Right lower extremity real-time compression venous ultrasound with Color Doppler imaging. Utilizing real-time ultrasonic imaging multiple real time high-resolution ultrasonic images with compression and noncompression maneuvers of the deep venous system in addition to color doppler imaging were performed from the common femoral vein through the proximal calf veins. COMPARISON: None available at the time of this dictation. FINDINGS: Currently there is normal compressibility of the deep venous system from the common femoral vein through the proximal calf veins. Soft tissue edema is noted in the calf. Impression: No evidence of deep venous thrombus. ACT 112: Negative or not required by law. Electronically signed by: Elliott Gonzales M.D. 06/12/2022 8:29 PM Dictated:06/12/222027 Transcribed: 06/12/222027. 06/13/2022 10:12 AM (1) Cellulitis Laterality: left Site of cellulitis: extremity Site of cellulitis of extremity: lower extremity Qualified Code(s): L03.116 - Cellulitis of left lower limb (2) Leukocytosis Leukocytosis type: unspecified Qualified Code(s): D72.829 - Elevated white blood cell count, unspecified
--- NOTE | 2022-06-13 22:39 | Hospitalist Progress Note ---
Date of Service June 13, 2022 Assessment & Plan (1) Diabetic foot infection: Plan: Failed outpatient management with clindamycin Foot xray showed Diffuse soft tissue swelling without acute fracture or dislocation identified. WBC 18K on admission, trending down to 16K Received Dapto and azithromycin in the ER, continue for now Blood culture grew gram-positive cocci Podiatry on board-hold for any surgical intervention at this time We will consult ID for final antibiotic management and duration We will get an echo cardiogram to rule out endocarditis Repeat blood culture in a.m. Continue monitor closely Chronic elevated troponin Possible related to elevate creatinine Troponin 2442 on on admission, trending down to 2178 Denies any chest pain will get an echo Consider cardiology consult Continue aspirin, plavix, metoprolol Diabetes mellitus, type II: Most recent hemoglobin A1c 7.6 Continue lantus and insulin sliding scale Continue monitor BS Cardiomyopathy: CXR showed cardiomegaly and mild pulmonary edema. No signs and/or symptoms of fluid overload Lasix on hold due to elevate creatine ALEXIA on CKD (chronic kidney disease), stage III: Creatinine on admission 1.9 Lasix on hold Continue monitor BMP Morbid obesity BMI 44.8 Counseling on weight loss DVT px on heparin subq Code status Full code Admission and Anticipated Discharge Date Admission Date: June 12, 2022 Subjective Pt was seen and examined for follow up of L foot infection Lying in bed with no acute distress Pt said that he has some discomfort because he is not able to have a BM Denies nay chest pain, palpitation, dizziness and SOB Review of Systems Review of Systems: All systems reviewed & are unremarkable except as noted in Subjective Physical Exam Physical Exam: General- No acute distress Head- atraumatic Eyes- PERRL, EOMI, ENT- oropharynx clear Neck- supple, no JVD Lungs- clear to auscultation Heart- regular rhythm; no murmur Abdomen- normal bowel sounds, soft, nontender Extremities- no calf tenderness, RLE stump, indurated swelling Neuro- alert, oriented x 3; PERRL, EOMI; no facial palsy; no dysarthria Skin- warm & dry Results & Data Results & Data ([facility]) Vital Signs (Past 12 Hours) Vital Signs Temp Pulse Pulse Resp BP Pulse Ox O2 Del Method 06/13/22 19:28 37.2 C 83 18 148/93 H 92 Room Air 06/13/22 16:30 36.8 C 75 18 131/74 96 06/13/22 15:21 88 06/13/22 11:30 36.8 C 73 18 131/74 97
[2022-06-14] MEDS: ALBUMIN 25% 100 mL 25 GM/100 ML VIAL IV SCH (03:50)
[2022-06-14] MEDS: AZTREONAM 1,000 MG in DEXTROSE 5% 100 ML IV SCH ×3 (06:05→21:05)
[2022-06-14] MEDS: HEPARIN SOD 5,000 UNIT/0.5 ML VIAL SQ SCH ×3 (06:06→21:08)
[2022-06-14 06:20] LABS: Hematocrit (blood only) 34.2 % (40.1-51.0); Hemoglobin 11.3 g/dl (14.0-18.0); Mean Corpuscular Hemoglobin 28.9 pg (25.0-34.0); Mean Corpuscular Volume 87.5 fL (80.0-100.0); Mean Platelet Volume 10.5 fL (9.4-12.4); Nucleated RBC # (auto) 0.36 K/uL (0-0); Nucleated RBC % (auto) 2.8 %; Platelet Count 270 K/uL (130-400); RDW Coefficient of Variation 15.1 % (11.5-14.5); RDW Standard Deviation 48.1 fL (36.4-46.3); Red Blood Count 3.91 M/uL (4.63-6.08); White Blood Count 12.81 K/ul (4.8-10.8)
[2022-06-14 07:32] LABS: BUN Creatinine Ratio 31.6 (10-20); Calcium 9.8 mg/dl (8.5-10.1); Creatinine Clr Calc Pharmacy 63.8 ml/min; Est GFR (African American) 43.1 ml/min; Est GFR (Non-African American) 37.2 ml/min; Potassium 4.2 mmol/L (3.5-5.1)
[2022-06-14 07:37] LABS: Troponin I High Sensitivity 1905.1 pg/ml (0-20)
[2022-06-14] MEDS: INSULIN ASPART PER UNIT SC SCH ×4 (09:06→20:58)
[2022-06-14] MEDS: ASPIRIN 81 MG ECTAB PO SCH (09:13)
[2022-06-14] MEDS: ISOSORBIDE MONO EXTENDED REL 30 MG TABCR PO SCH (09:14)
[2022-06-14] MEDS: METOPROLOL SUCC 25MG EXT REL TAB PO SCH (09:14)
[2022-06-14] MEDS: CLOPIDOGREL BISULFATE 75 MG TAB PO SCH (09:14)
[2022-06-14] MEDS: LANTUS PER UNIT CHARGE SQ SCH ×2 (09:15→20:58)
--- NOTE | 2022-06-14 16:48 | Hospitalist Progress Note ---
Date of Service June 14, 2022 Assessment & Plan (1) Diabetic foot infection: Plan: Failed outpatient management with clindamycin Foot xray showed Diffuse soft tissue swelling without acute fracture or dislocation identified. WBC 18K on admission, trending down to 16K Received Dapto and azithromycin in the ER, continue for now Blood culture grew gram-positive cocci Podiatry on board-hold for any surgical intervention at this time We will consult ID for final antibiotic management and duration- pending Echo did not noted any vegetation thrombus Repeat blood cx pending Continue monitor closely Chronic elevated troponin Possible related to elevate creatinine Troponin 2442 on on admission, trending down to 2178, then 1905 Denies any chest pain ECHO showed Severe global hypokinesis of the LV with EF 25-30% Continue aspirin, plavix, metoprolol Diabetes mellitus, type II: Most recent hemoglobin A1c 7.6 Continue lantus and insulin sliding scale Continue monitor BS Cardiomyopathy: CXR showed cardiomegaly and mild pulmonary edema. No signs and/or symptoms of fluid overload Lasix on hold due to elevate creatinine Monitor closely for sign of CHF while lasix on hold ALEXIA on CKD (chronic kidney disease), stage III: Creatinine on admission 1.9 Lasix on hold creatinine 1.8 Continue monitor BMP Morbid obesity BMI 44.8 Counseling on weight loss DVT px on heparin subq Code status Full code Admission and Anticipated Discharge Date Admission Date: June 12, 2022 Subjective Pt was seen and examined for follow up of L foot infection Lying in bed with no acute distress Pt said that he does have neck tenderness Denies nay chest pain, palpitation, dizziness and SOB Review of Systems Review of Systems: All systems reviewed & are unremarkable except as noted in Subjective Physical Exam Physical Exam: General- No acute distress Head- atraumatic Eyes- PERRL, EOMI, ENT- oropharynx clear Neck- supple, no JVD Lungs- clear to auscultation Heart- regular rhythm; no murmur Abdomen- normal bowel sounds, soft, nontender Extremities- no calf tenderness, RLE stump, indurated swelling Neuro- alert, oriented x 3; PERRL, EOMI; no facial palsy; no dysarthria Skin- warm & dry Results & Data Results & Data ([facility]) Vital Signs (Past 12 Hours) Vital Signs Temp Pulse Pulse Resp BP Pulse Ox O2 Del Method 06/14/22 15:53 36.5 C 74 20 127/81 96 Room Air 06/14/22 08:00 60 06/14/22 11:08 36.7 C 79 22 128/79 93 Room Air 06/14/22 07:56 36.4 C L 77 21 123/88 95 Room Air
[2022-06-14] MEDS: traMADol HCL 50 MG TABLET PO PRN ×2 (17:02→21:46)
[2022-06-14] MEDS: DAPTOmycin 450 MG in SYRINGE 0 ML IV SCH (21:03)
[2022-06-15] MEDS: traMADol HCL 50 MG TABLET PO PRN (03:27)
[2022-06-15] MEDS: HEPARIN SOD 5,000 UNIT/0.5 ML VIAL SQ SCH ×3 (06:28→21:46)
[2022-06-15 06:31] LABS: Hematocrit (blood only) 37.6 % (40.1-51.0); Hemoglobin 12.8 g/dl (14.0-18.0); Mean Corpuscular Hemoglobin 29.2 pg (25.0-34.0); Mean Corpuscular Volume 85.6 fL (80.0-100.0); Mean Platelet Volume 10.2 fL (9.4-12.4); Nucleated RBC # (auto) 0.11 K/uL (0-0); Nucleated RBC % (auto) 0.8 %; Platelet Count 288 K/uL (130-400); RDW Standard Deviation 47.1 fL (36.4-46.3); Red Blood Count 4.39 M/uL (4.63-6.08); White Blood Count 14.13 K/ul (4.8-10.8)
[2022-06-15 06:56] LABS: BUN Creatinine Ratio 34.2 (10-20); Calcium 9.2 mg/dl (8.5-10.1); Creatinine Clr Calc Pharmacy 60.5 ml/min; Est GFR (African American) 40.7 ml/min; Est GFR (Non-African American) 35.1 ml/min; Potassium 4.2 mmol/L (3.5-5.1)
--- NOTE | 2022-06-15 07:22 | Electrocardiogram Report ---
Test Reason : Blood Pressure : / mmHG Vent. Rate : 073 BPM Atrial Rate : 073 BPM P-R Int : 178 ms QRS Dur : 176 ms QT Int : 468 ms P-R-T Axes : 059 -16 126 degrees QTc Int : 515 ms Normal sinus rhythm Possible Left atrial enlargement Left bundle branch block Abnormal ECG When compared with ECG of 14-JUN-2022 06:01, (unconfirmed) No significant change was found Confirmed by Geoffrey Capellan ([id number]) on 06/15/2022 7:22:10 AM Referred By: REFERRED SELF Confirmed By:Ignacio Capellan
--- NOTE | 2022-06-15 07:23 | Electrocardiogram Report ---
Test Reason : Blood Pressure : / mmHG Vent. Rate : 078 BPM Atrial Rate : 078 BPM P-R Int : 176 ms QRS Dur : 174 ms QT Int : 448 ms P-R-T Axes : 060 -13 127 degrees QTc Int : 510 ms Normal sinus rhythm Possible Left atrial enlargement Left bundle branch block Abnormal ECG When compared with ECG of 13-JUN-2022 14:45, (unconfirmed) Nonspecific T wave abnormality no longer evident in Inferior leads T wave inversion less evident in Lateral leads Confirmed by Geoffrey Capellan ([id number]) on 06/15/2022 7:23:22 AM Referred By: REFERRED SELF Confirmed By:Ignacio Capellan
--- NOTE | 2022-06-15 07:24 | Electrocardiogram Report ---
Test Reason : Blood Pressure : / mmHG Vent. Rate : 087 BPM Atrial Rate : 087 BPM P-R Int : 156 ms QRS Dur : 176 ms QT Int : 438 ms P-R-T Axes : -09 -15 159 degrees QTc Int : 527 ms Sinus rhythm with Premature atrial complexes with Aberrant conduction Left bundle branch block Abnormal ECG When compared with ECG of 12-JUN-2022 17:05, Aberrant conduction is now Present Nonspecific T wave abnormality now evident in Inferior leads T wave inversion more evident in Lateral leads Confirmed by Geoffrey Capellan ([id number]) on 06/15/2022 7:24:01 AM Referred By: REFERRED SELF Confirmed By:Ignacio Capellan
[2022-06-15] MEDS: AZTREONAM 1,000 MG in DEXTROSE 5% 100 ML IV SCH ×3 (07:35→21:46)
[2022-06-15] MEDS: LANTUS PER UNIT CHARGE SQ SCH ×2 (08:43→20:47)
[2022-06-15] MEDS: INSULIN ASPART PER UNIT SC SCH ×4 (08:43→20:47)
[2022-06-15] MEDS: CLOPIDOGREL BISULFATE 75 MG TAB PO SCH (08:47)
[2022-06-15] MEDS: ASPIRIN 81 MG ECTAB PO SCH (08:47)
[2022-06-15] MEDS: ISOSORBIDE MONO EXTENDED REL 30 MG TABCR PO SCH (08:47)
[2022-06-15] MEDS: METOPROLOL SUCC 25MG EXT REL TAB PO SCH (08:47)
--- NOTE | 2022-06-15 11:29 | Consultation Report ---
NEPHROLOGY CONSULTATION NOTE DATE OF SERVICE: 06/15/2022 REASON FOR CONSULTATION: Acute renal failure and hyponatremia. HISTORY OF PRESENT ILLNESS: The patient is a 66-year-old white male with a history of type 2 diabete s, predominantly uncontrolled in the past for 30+ years, who has been in the hospital for the last fe w days secondary to lower extremity wound infection. The patient has been getting IV antibiotics sin ce being admitted. The patient does have significant swelling in the left lower extremity extending all the way to the upper thighs. At home, he does take Lasix, which is currently on hold. He also h as severe cardiomyopathy with an ejection fraction of 25-30%. At this time, the patient is getting da ptomycin and aztreonam. This morning labs show sodium has been dropping and creatinine is rising. C hest x-ray shows pulmonary edema, although it is very difficult to assess his fluid status given his super morbid obesity. Blood cultures done on admission did show coagulase-negative Staphylococcus and there was Staphylococcus aureus and multiple bacteria last treatment. At this time, patient i s not getting any IV fluids or any IV diuretics or oral diuretics. The patient is short of breath on very minimal activity. He is essentially bedbound. Orthopedics has already seen the patient and acc ording to the note, there is no plan for any surgical intervention at this time. His baseline creati nine is hard to pinpoint given significant fluctuation, but most of the time he does have slightly ab normal kidney function. On admission, it was 1.96. It dropped a little bit for the next few days, b ut now it is back to the same level. According to the patient, he fluctuates between stage III and s tage II kidney disease. PAST MEDICAL AND SURGICAL HISTORY: Cardiomyopathy with an ejection fraction of 25-30%, Charcot foot, chronic kidney disease stage III with a fluctuating creatinine, type 2 diabetes 30+ years, morbid ob esity, hyperlipidemia, hypertension, history of MN, peripheral vascular disease, status post right BK A, type 2 diabetes with all the complications, below-knee amputation in the right side, reactive airw ay disease. FAMILY HISTORY: Negative for renal disease or dialysis. SOCIAL HISTORY: Never smoked. He is and lives alone. He uses cane and wheelchair for ambu lation. He does drink alcohol. REVIEW OF SYSTEMS: As detailed in HPI; unless stated otherwise, 12 systems reviewed and negative. P ositive review of systems includes weakness, increasing lower extremity edema, especially in the left leg, occasional chills and fever. PHYSICAL EXAMINATION: GENERAL: A middle-aged white male who is super morbidly obese. He is awake, alert, oriented x3 and is able to give me a detailed account of his medical history. VITAL SIGNS: Blood pressure is 142/90, pulse rate 74, temperature 37 degrees Celsius, 95% on 2 L som al cannula. CHEST: Bilateral decreased breath sound, but very poor quality exam. CARDIOVASCULAR: S1 and S2, regular. Distant heart sound. ABDOMEN: Morbidly obese, soft, nontender. EXTREMITIES: Show right BKA, hardly any edema in the right thigh, but significant edema in the left thigh and the left lower extremity with bandaged lower extremity wound. NEUROLOGIC: Awake, alert, oriented, moving all 4 extremities. Normal speech. LABORATORY TEST: Blood work from this morning shows WBC count of 14,000, hemoglobin 12.8, platelet c ount 288, creatinine is 1.96, BUN 67, sodium 130, potassium 4.2. Urine osmolality was 356. Urine so dium was less than 10. Chest x-ray shows pulmonary congestion/pulmonary edema. ASSESSMENT AND PLAN: A 66-year-old male with longstanding type 2 diabetes for 30+ years with underly ing chronic kidney disease and a fluctuating baseline creatinine, now admitted with diabetic foot inf ection after failing outpatient antibiotic treatment. I have been consulted for acute on chronic tito al failure as well as hyponatremia. 1. Acute renal failure. His baseline creatinine is hard to pinpoint, which is not unexpected given h is severe cardiomyopathy as well as longstanding type 2 diabetes. Creatinine today is about the same as on admission. Some rise in creatinine is to be expected in the current setting of diabetic foot infection, leukocytosis, antibiotic exposure. However, he is not volume depleted. In fact, he is vo lume overloaded and that is the cause of his hyponatremia. Even the urine sodium is low, which can h appen with congestive heart failure/pulmonary edema. The patient is having hypervolemic hyponatremia, which means he needs IV Lasix for the treatment. Creatinine can go higher or lower and is hard to pr edict, but he does need some Lasix and I will give 40 mg IV twice daily and continue to adjust his la bs. Thank you very much for the consult. Job ID: [id number]
[2022-06-15] MEDS: FUROSEMIDE 40 MG/4 ML VIAL IV SCH ×2 (12:06→20:49)
[2022-06-15] MEDS: DAPTOmycin 450 MG in SYRINGE 0 ML IV SCH (20:49)
--- NOTE | 2022-06-15 21:38 | Orthopedic Progress Note ---
Date of Service June 15, 2022 Assessment & Plan (1) Diabetic foot infection: Plan: There is reduction of interdigital maceration on left foot. Reviewed labs and x-rays as well as x-ray findings. Awaiting culture sensitivities. Cont IV abx therapy. Continue with spacers/ DSD applied to left foot to continue to dry macerated skin between toes, likely site of infection. Will continue to evaluate while in house. Thank you for allowing me to participate in the care of this Patient. (2) Cellulitis: (3) Failure of outpatient treatment: (4) Leukocytosis: (5) History of right below knee amputation: (6) Diabetes mellitus, type II: Admission and Anticipated Discharge Date Admission Date: June 12, 2022 Subjective Patient seen at bedside in no acute distress for follow up of left foot DFU and LLE cellulitis. Patient has been placed on IV abx after failing out Patient oral clindamycin. He is currently on daptomycin and aztreonam. Recent cultures show group b strep from foot. Blood cultures taken on admission show Staph. WBC trending downward from 16 to 14. Physical Exam ENMT: external ear and nose normal, oropharynx normal Neck: trachea midline, no thyromegaly Respiratory: normal respiratory effort, lungs clear to auscultation Musculoskeletal: Rigt BKA Skin: Left foot interdigital maceration third and fourth interspace. Plantar left fourth partial thickness ulcer. Erythema noted to left foot ankle and leg Neurologic: Decresase epicritic sensation Psychiatric: Orientation: oriented x 3 Lymphatic: Left lower extremity non pitting edema Results & Data ([facility]) Vital Signs (Past 12 Hours) Vital Signs Temp Pulse Pulse Resp BP Pulse Ox O2 Del Method 06/15/22 19:54 Room Air 06/15/22 19:14 36.3 C L 69 18 127/79 96 Room Air 06/15/22 16:14 36.9 C 69 18 135/76 96 Room Air 06/15/22 15:53 72 06/15/22 11:37 36.7 C 69 19 134/79 97 Room Air (1) Cellulitis Laterality: left Site of cellulitis: extremity Site of cellulitis of extremity: lower extremity Qualified Code(s): L03.116 - Cellulitis of left lower limb (2) Leukocytosis Leukocytosis type: unspecified Qualified Code(s): D72.829 - Elevated white blood cell count, unspecified
--- NOTE | 2022-06-15 23:48 | Hospitalist Progress Note ---
Date of Service June 15, 2022 Assessment & Plan (1) Diabetic foot infection: Plan: Failed outpatient management with clindamycin Foot xray showed Diffuse soft tissue swelling without acute fracture or dislocation identified. WBC 18K on admission, trending down to 14K Received Dapto and azactam in the ER, continue for now Blood culture grew gram-positive cocci- coag negative staph not lugnensis Wound cx grew gram neagtive bacilli and group B strep Podiatry on board-hold for any surgical intervention at this time We will consult ID for final antibiotic management and duration- pending Echo did not noted any vegetation thrombus Repeat blood cx no growth so far Continue IV antibiotic with azithromycin and daptomycin Continue monitor closely Chronic elevated troponin Possible related to elevate creatinine Troponin 2442 on on admission, trending down to 2178, then 1905 Denies any chest pain ECHO showed Severe global hypokinesis of the LV with EF 25-30% Continue aspirin, plavix, metoprolol Diabetes mellitus, type II: Most recent hemoglobin A1c 7.6 Continue lantus and insulin sliding scale Continue monitor BS Cardiomyopathy: CXR showed cardiomegaly and mild pulmonary edema. No signs and/or symptoms of fluid overload Lasix resumed Monitor closely for sign of CHF ALEXIA on CKD (chronic kidney disease), stage III: Creatinine on admission 1.9 creatinine 1.9 today Nephrology on board Lasix resumed Continue monitor BMP Morbid obesity BMI 44.8 Counseling on weight loss DVT px on heparin subq Code status Full code Admission and Anticipated Discharge Date Admission Date: June 12, 2022 Subjective Pt was seen and examined for follow up of L foot infection Lying in bed with no acute distress watching TV Denies nay chest pain, palpitation, dizziness and SOB Review of Systems Review of Systems: All systems reviewed & are unremarkable except as noted in Subjective Physical Exam Physical Exam: General- No acute distress Head- atraumatic Eyes- PERRL, EOMI, ENT- oropharynx clear Neck- supple, no JVD Lungs- clear to auscultation Heart- regular rhythm; no murmur Abdomen- normal bowel sounds, soft, nontender Extremities- no calf tenderness, RLE stump, indurated swelling Neuro- alert, oriented x 3; PERRL, EOMI; no facial palsy; no dysarthria Skin- warm & dry Results & Data Results & Data ([facility]) Vital Signs (Past 12 Hours) Vital Signs Temp Pulse Pulse Resp BP Pulse Ox O2 Del Method 06/15/22 23:33 71 06/15/22 19:54 Room Air 06/15/22 19:14 36.3 C L 69 18 127/79 96 Room Air 06/15/22 16:14 36.9 C 69 18 135/76 96 Room Air 06/15/22 15:53 72
[2022-06-16] MEDS: HEPARIN SOD 5,000 UNIT/0.5 ML VIAL SQ SCH ×3 (06:11→21:03)
[2022-06-16] MEDS: AZTREONAM 1,000 MG in DEXTROSE 5% 100 ML IV SCH (06:11)
[2022-06-16 07:12] LABS: Hematocrit (blood only) 38.5 % (40.1-51.0); Hemoglobin 12.8 g/dl (14.0-18.0); Mean Corpuscular Hemoglobin 28.5 pg (25.0-34.0); Mean Corpuscular Hgb Conc 33.2 g/dL (32.0-36.0); Mean Corpuscular Volume 85.7 fL (80.0-100.0); Mean Platelet Volume 10.5 fL (9.4-12.4); Nucleated RBC # (auto) 0.13 K/uL (0-0); Nucleated RBC % (auto) 0.6 %; Platelet Count 294 K/uL (130-400); RDW Coefficient of Variation 15.1 % (11.5-14.5); Red Blood Count 4.49 M/uL (4.63-6.08); White Blood Count 20.61 K/ul (4.8-10.8)
[2022-06-16 07:55] LABS: Calcium 8.8 mg/dl (8.5-10.1); Creatinine Clr Calc Pharmacy 65.5 ml/min; Est GFR (Non-African American) 39.7 ml/min; Potassium 4.2 mmol/L (3.5-5.1)
[2022-06-16] MEDS: CLOPIDOGREL BISULFATE 75 MG TAB PO SCH (08:15)
[2022-06-16] MEDS: ASPIRIN 81 MG ECTAB PO SCH (08:15)
[2022-06-16] MEDS: METOPROLOL SUCC 25MG EXT REL TAB PO SCH (08:16)
[2022-06-16] MEDS: FUROSEMIDE 40 MG/4 ML VIAL IV SCH ×2 (08:16→21:03)
[2022-06-16] MEDS: INSULIN ASPART PER UNIT SC SCH ×4 (08:16→20:57)
[2022-06-16] MEDS: ISOSORBIDE MONO EXTENDED REL 30 MG TABCR PO SCH (08:16)
[2022-06-16] MEDS: LANTUS PER UNIT CHARGE SQ SCH ×2 (08:17→20:58)
[2022-06-16] MEDS ORDERED: bisacodyL 5 MG TABEC PO ONE (12:12)
[2022-06-16] MEDS: MEROPENEM 500 MG in SYRINGE 0 ML IV SCH ×2 (14:15→21:02)
--- NOTE | 2022-06-16 17:34 | Hospitalist Progress Note ---
Date of Service June 16, 2022 Assessment & Plan (1) Diabetic foot infection: Plan: Failed outpatient management with clindamycin Foot xray showed Diffuse soft tissue swelling without acute fracture or dislocation identified. WBC 18K on admission, Trending up to 20K Received Dapto and azactam in the ER, continue for now Blood culture grew gram-positive cocci- coag negative staph not lugnensis Wound cx grew gram neagtive bacilli and group B strep Podiatry on board-hold for any surgical intervention at this time Echo did not noted any vegetation thrombus Repeat blood cx no growth so far Case discussed with ID that recommended to discontinue Azethreonam and Daptomycin recommended to start IV meropenem Case discussed with podiatry- No subcutaneous tissue involvement. No necrotic tissue observed. Will get an MRI of L foot to r/o osteomyelitis ( will discuss with nephrology if we can do the MRI with IV contrast ) Continue monitor closely Chronic elevated troponin Possible related to elevate creatinine Troponin 2442 on on admission, trending down to 2178, then 1905 Denies any chest pain ECHO showed Severe global hypokinesis of the LV with EF 25-30% Continue aspirin, plavix, metoprolol Diabetes mellitus, type II: Most recent hemoglobin A1c 7.6 Continue lantus and insulin sliding scale Continue monitor BS Cardiomyopathy: CXR showed cardiomegaly and mild pulmonary edema. No signs and/or symptoms of fluid overload Lasix resumed Monitor closely for sign of CHF ALEXIA on CKD (chronic kidney disease), stage III: Creatinine on admission 1.9 creatinine 1.7 today Nephrology on board Continue Lasix IV 40mg BID Continue monitor BMP Morbid obesity BMI 44.8 Counseling on weight loss DVT px on heparin subq Code status Full code Admission and Anticipated Discharge Date Admission Date: June 12, 2022 Subjective Pt was seen and examined for follow up of L foot infection Lying in bed with no acute distress watching TV Pt said that he has not had BM Denies nay chest pain, palpitation, dizziness and SOB Review of Systems Review of Systems: All systems reviewed & are unremarkable except as noted in Subjective Physical Exam Physical Exam: General- No acute distress Head- atraumatic Eyes- PERRL, EOMI, ENT- oropharynx clear Neck- supple, no JVD Lungs- clear to auscultation Heart- regular rhythm; no murmur Abdomen- normal bowel sounds, soft, nontender Extremities- no calf tenderness, RLE stump, indurated swelling Neuro- alert, oriented x 3; PERRL, EOMI; no facial palsy; no dysarthria Skin- warm & dry Results & Data Results & Data ([facility]) Vital Signs (Past 12 Hours) Vital Signs Temp Pulse Resp BP Pulse Ox O2 Del Method 06/16/22 15:26 36.8 C 75 18 124/80 95 Room Air 06/16/22 11:54 36.7 C 74 19 141/88 H 94 Room Air 06/16/22 10:46 Room Air 06/16/22 07:44 36.9 C 82 21 166/84 H 92 Room Air
[2022-06-17] MEDS: MEROPENEM 500 MG in SYRINGE 0 ML IV SCH ×4 (01:47→20:59)
[2022-06-17] MEDS: HEPARIN SOD 5,000 UNIT/0.5 ML VIAL SQ SCH ×3 (05:52→21:00)
[2022-06-17] MEDS: LANTUS PER UNIT CHARGE SQ SCH ×2 (08:14→21:06)
[2022-06-17] MEDS: INSULIN ASPART PER UNIT SC SCH ×4 (08:15→21:06)
[2022-06-17] MEDS: FUROSEMIDE 40 MG/4 ML VIAL IV SCH ×2 (08:16→21:00)
[2022-06-17] MEDS: METOPROLOL SUCC 25MG EXT REL TAB PO SCH (08:16)
[2022-06-17] MEDS: ASPIRIN 81 MG ECTAB PO SCH (08:16)
[2022-06-17] MEDS: CLOPIDOGREL BISULFATE 75 MG TAB PO SCH (08:16)
[2022-06-17] MEDS: ISOSORBIDE MONO EXTENDED REL 30 MG TABCR PO SCH (08:16)
[2022-06-17] MEDS ORDERED: bisacodyL 5 MG TABEC PO ONE (09:47)
[2022-06-17 09:49] LABS: Hematocrit (blood only) 37.8 % (40.1-51.0); Hemoglobin 12.7 g/dl (14.0-18.0); Mean Corpuscular Hemoglobin 28.7 pg (25.0-34.0); Mean Corpuscular Hgb Conc 33.6 g/dL (32.0-36.0); Mean Corpuscular Volume 85.3 fL (80.0-100.0); Mean Platelet Volume 10.5 fL (9.4-12.4); Nucleated RBC # (auto) 0.03 K/uL (0-0); Nucleated RBC % (auto) 0.2 %; Platelet Count 268 K/uL (130-400); RDW Coefficient of Variation 15.1 % (11.5-14.5); RDW Standard Deviation 46.4 fL (36.4-46.3); Red Blood Count 4.43 M/uL (4.63-6.08)
[2022-06-17 10:41] LABS: Anion Gap 6 (3-11); Blood Urea Nitrogen 54 mg/dl (6-23); Calcium 8.8 mg/dl (8.5-10.1); Carbon Dioxide 28 mmol/L (21-32); Chloride 98 mmol/L (98-107); Creatinine Clr Calc Pharmacy 67.2 ml/min; Est GFR (Non-African American) 40.5 ml/min; Glucose 241 mg/dl (70-99(Fasting)); Sodium 132 mmol/L (136-145)
[2022-06-17] MEDS ORDERED: POTASSIUM CHLORIDE CRTAB 20 MEQ TABCR PO STA (11:44)
[2022-06-17] MEDS: POLYETHYLENE (MIRALAX) 17 GM PACK PO SCH (12:26)
--- NOTE | 2022-06-17 15:06 | Nephrology Progress Note ---
Date of Service June 17, 2022 Assessment & Plan (1) CKD (chronic kidney disease), stage III: Plan: A 66-year-old male with longstanding type 2 diabetes for 30+ years with underlying chronic kidney disease and a fluctuating baseline creatinine, admitted with diabetic foot infection after failing outpatient antibiotic treatment. Nephrology has been consulted for acute on chronic renal failure as well as hyponatremia. Acute renal failure. His baseline creatinine is hard to pinpoint, which is not unexpected given his severe cardiomyopathy as well as longstanding type 2 diabetes. Creatinine today is about the same as on admission. Some rise in creatinine is to be expected in the current setting of diabetic foot infection, leukocytosis, antibiotic exposure. (2) Diabetic foot infection: Plan: Managed by ORTHOPEDIC - Renally dose ABX . -Would not advise MRI with contrast as he is very high risk for NSF. (3) Acute hyponatremia: Plan: 2/volume overload -. The patient is having hypervolemic hyponatremia, which means he needs IV Lasix for the treatment. Creatinine can fluctuate . - Continue with 40 mg IV twice daily . Admission and Anticipated Discharge Date Admission Date: June 12, 2022 Subjective Pt was seen and examined for follow up of L foot infection Lying in bed with no acute distress foot infection better. Review of Systems Review of Systems: All systems reviewed & are unremarkable except as noted in HPI & below Physical Exam Physical Exam: PHYSICAL EXAMINATION: GENERAL: A middle-aged white obese male He is awake, alert, oriented x3 CHEST: Bilateral decreased breath sound, but very poor quality exam. CARDIOVASCULAR: S1 and S2, regular. Distant heart sound. ABDOMEN: Morbidly obese, soft, nontender. EXTREMITIES: Show right BKA, hardly any edema in the right thigh, but significant edema in the left thigh and the left lower extremity with bandaged lower extremity wound. NEUROLOGIC: Awake, alert, oriented, moving all 4 extremities. Results & Data ([facility]) Vital Signs (Past 12 Hours) Vital Signs Temp Pulse Resp BP Pulse Ox O2 Del Method 06/17/22 10:50 36.6 C 75 19 151/88 H 91 Room Air 06/17/22 07:35 36.7 C 68 19 123/73 95 Room Air 06/17/22 03:51 36.4 C L 68 20 147/81 H 93 Room Air Laboratory Results 06/17/22 09:09 06/17/22 10:47
--- NOTE | 2022-06-17 20:21 | Hospitalist Progress Note ---
Date of Service June 17, 2022 Assessment & Plan (1) Diabetic foot infection: Plan: Failed outpatient management with clindamycin Foot xray showed Diffuse soft tissue swelling without acute fracture or dislocation identified. WBC 18K on admission, Trending up to 20K, now trending down to 16K Received Dapto and azactam in the ER, continue for now Blood culture grew gram-positive cocci- coag negative staph not lugnensis Wound cx grew gram neagtive bacilli and group B strep Podiatry on board-hold for any surgical intervention at this time Echo did not noted any vegetation thrombus Repeat blood cx no growth so far Case discussed with ID that recommended to discontinue Azethreonam and Daptomycin recommended to start IV meropenem Case discussed with podiatry- No subcutaneous tissue involvement. No necrotic tissue observed. Order MRI of L foot to r/o osteomyelitis without contrast ( No contrast as per nephrology) Pt does not think he would be able to fit in the MRI machine, he is very reluctant to try ID will continue follow him for final abx regimen on discharge Continue monitor closely Chronic elevated troponin Possible related to elevate creatinine Troponin 2442 on on admission, trending down to 2178, then 1905 Denies any chest pain ECHO showed Severe global hypokinesis of the LV with EF 25-30% Continue aspirin, plavix, metoprolol Diabetes mellitus, type II: Glucose has been elevated Most recent hemoglobin A1c 7.6 Continue lantus and insulin sliding scale Continue monitor BS Cardiomyopathy: CXR showed cardiomegaly and mild pulmonary edema. No signs and/or symptoms of fluid overload Continue IV lasix 40mg BID Monitor closely for sign of CHF ALEXIA on CKD (chronic kidney disease), stage III: Creatinine on admission 1.9 creatinine 1.7 today Nephrology on board Continue Lasix IV 40mg BID Continue monitor BMP Morbid obesity BMI 44.8 Counseling on weight loss DVT px on heparin subq Code status Full code Disposition Will go to rehab once medically stable Admission and Anticipated Discharge Date Admission Date: June 12, 2022 Subjective Pt was seen and examined for follow up of L foot infection Lying in bed with no acute distress Pt said that he does not feels comfortable because he has not had a BM L foot infection continues to improve Review of Systems Review of Systems: All systems reviewed & are unremarkable except as noted in Subjective Physical Exam Physical Exam: General- No acute distress Head- atraumatic Eyes- PERRL, EOMI, ENT- oropharynx clear Neck- supple, no JVD Lungs- clear to auscultation Heart- regular rhythm; no murmur Abdomen- normal bowel sounds, soft, nontender Extremities- no calf tenderness, RLE stump, indurated swelling Neuro- alert, oriented x 3; PERRL, EOMI; no facial palsy; no dysarthria Skin- warm & dry Results & Data Results & Data ([facility]) Vital Signs (Past 12 Hours) Vital Signs Temp Pulse Pulse Resp BP Pulse Ox O2 Del Method 06/17/22 19:46 36.4 C L 66 18 132/69 98 06/17/22 17:34 66 06/17/22 15:30 36.4 C L 72 18 135/85 97 Room Air 06/17/22 10:50 36.6 C 75 19 151/88 H 91 Room Air
[2022-06-18] MEDS: MEROPENEM 500 MG in SYRINGE 0 ML IV SCH ×4 (02:36→20:56)
[2022-06-18] MEDS: HEPARIN SOD 5,000 UNIT/0.5 ML VIAL SQ SCH ×3 (05:11→20:59)
[2022-06-18] MEDS: DOCUSATE SODIUM 100 MG CAP PO PRN (06:09)
[2022-06-18 06:45] LABS: Hematocrit (blood only) 39.4 % (40.1-51.0); Mean Corpuscular Hemoglobin 28.4 pg (25.0-34.0); Mean Corpuscular Volume 86.2 fL (80.0-100.0); Mean Platelet Volume 10.7 fL (9.4-12.4); Platelet Count 277 K/uL (130-400); RDW Coefficient of Variation 15.3 % (11.5-14.5); RDW Standard Deviation 47.5 fL (36.4-46.3); Red Blood Count 4.57 M/uL (4.63-6.08); White Blood Count 14.45 K/ul (4.8-10.8)
[2022-06-18 07:19] LABS: BUN Creatinine Ratio 31.9 (10-20); Calcium 8.7 mg/dl (8.5-10.1); Creatinine Clr Calc Pharmacy 73.1 ml/min; Est GFR (Non-African American) 44.9 ml/min
[2022-06-18] MEDS: ISOSORBIDE MONO EXTENDED REL 30 MG TABCR PO SCH (07:26)
[2022-06-18] MEDS: METOPROLOL SUCC 25MG EXT REL TAB PO SCH (07:27)
[2022-06-18] MEDS: CLOPIDOGREL BISULFATE 75 MG TAB PO SCH (07:27)
[2022-06-18] MEDS: ASPIRIN 81 MG ECTAB PO SCH (07:27)
[2022-06-18] MEDS: FUROSEMIDE 40 MG/4 ML VIAL IV SCH ×2 (07:28→20:59)
[2022-06-18] MEDS: POLYETHYLENE (MIRALAX) 17 GM PACK PO SCH (07:28)
[2022-06-18] MEDS: INSULIN ASPART PER UNIT SC SCH ×4 (08:24→20:57)
[2022-06-18] MEDS: LANTUS PER UNIT CHARGE SQ SCH ×2 (08:24→20:57)
[2022-06-18] MEDS ORDERED: PHARMACY GLYCEMIC MGMT CONSULT PRN (08:36)
[2022-06-18] MEDS ORDERED: INSULIN ASPART PER UNIT SC STA (08:49)
[2022-06-18] MEDS ORDERED: LANTUS PER UNIT CHARGE SQ STA (08:49)
--- NOTE | 2022-06-18 13:52 | Hospitalist Progress Note ---
Date of Service June 18, 2022 Assessment & Plan (1) Diabetic foot infection: Plan: Failed outpatient management with clindamycin Foot xray showed Diffuse soft tissue swelling without acute fracture or dislocation identified. WBC 18K on admission, Trended up to 20K, now trending down to 14K Blood culture grew gram-positive cocci- coag negative staph not lugnensis Wound cx grew Alcaligensis faecalis and group B strep Received Dapto and azactam in the ER Podiatry on board. No surgical intervention at this time Echo did not noted any vegetation thrombus Repeat blood cx no growth so far Dr Orlando had discussed with ID that recommended to discontinue Azethreonam and Daptomycin recommended to start IV meropenem (Reviewed tigertext from Dr Clifton Angela to Dr Orlando) Awaiting ID consult note ID recommended MRI of left foot Patient stated he cannot fit into closed MRI. I discussed with optoelectronic technician who stated they can have patient's LE in up to hip. Patient stated he was ok with that Will follow up MRI results and follow up ID's final recommendations afterwards Continue wound care ALEXIA on CKD (chronic kidney disease), stage III: Creatinine on admission 1.9 Creatinine 1.6 today Nephrology on board Currently on Lasix IV 40mg BID Continue monitor BMP Chronic elevated troponin Cardiomyopathy Possible related to CKD and HFrEF Troponin 2442 on on admission, trending down to 2178, then 1905 Denies any chest pain ECHO showed Severe global hypokinesis of the LV with EF 25-30% Continue aspirin, plavix, metoprolol Diabetes mellitus, type II: Glucose has been elevated Most recent hemoglobin A1c 7.6 on 05/06/22 Continue lantus and insulin sliding scale Continue monitor BG Morbid obesity BMI 43 Counseled on weight loss DVT px on heparin subq Code status Full code Disposition Will go to rehab once medically stable Admission and Anticipated Discharge Date Admission Date: June 12, 2022 Subjective Patient seen and examined. Reports left leg swelling and some pain in the left foot. Denied any nausea, vomiting, abdominal pain. Denied any chest pain, cough, shortness of breath. Reports occasional dyspnea on exertion Denies any fevers, chills Reports constipation is resolved today. Had a large bowel movement this morning Physical Exam Constitutional: + well hydrated and + obese; no acute distress Eyes: PERRL, conjunctivae normal, anicteric sclerae ENMT: external ear and nose normal, oropharynx normal Respiratory: normal respiratory effort; no respiratory distress Decreased breath sounds lung bases Cardiovascular: Rate/Rhythm: regular rate and regular rhythm S1-S2 Gastrointestinal (Abdomen): normal bowel sounds, soft, nontender, no hepatosplenomegaly Musculoskeletal: Right BKA. Left leg edema. Left foot covered in dressing Neurologic: PERRL, EOMI, accommodation nl, no face palsy, no dysarthria Psychiatric: A+Ox3, euthymic affect Genitourinary: [place] in situ Results & Data Results & Data ([facility]) Vital Signs (Past 12 Hours) Vital Signs Temp Pulse Pulse Resp BP Pulse Ox O2 Del Method 06/18/22 11:55 37.1 C 70 19 125/77 93 Room Air 06/18/22 11:25 36.4 C L 68 16 134/86 94 Room Air 06/18/22 08:00 75 06/18/22 08:00 Room Air 06/18/22 02:51 36.7 C 67 18 155/96 H 98 Room Air Laboratory Results Abnormal lab results 06/17/22 06/17/22 06/18/22 Range/Units 16:18 20:02 06:12 WBC 14.45 H (4.8-10.8) K/ul RBC 4.57 L (4.63-6.08) M/uL Hgb 13.0 L (14.0-18.0) g/dl Hct 39.4 L (40.1-51.0) % RDW Std Deviation 47.5 H (36.4-46.3) fL RDW Coeff of Yonis 15.3 H (11.5-14.5) % Sodium (136-145) mmol/L BUN (6-23) mg/dl Creatinine (0.6-1.4) mg/dl BUN/Creatinine Ratio (10-20) Glucose (70-99(Fasting)) mg/dl POC Glucose 217 H 242 H (70-99) mg/dl 06/18/22 06/18/22 06/18/22 Range/Units 06:12 07:33 11:29 WBC (4.8-10.8) K/ul RBC (4.63-6.08) M/uL Hgb (14.0-18.0) g/dl Hct (40.1-51.0) % RDW Std Deviation (36.4-46.3) fL RDW Coeff of Yonis (11.5-14.5) % Sodium 133 L (136-145) mmol/L BUN 51 H (6-23) mg/dl Creatinine 1.60 H (0.6-1.4) mg/dl BUN/Creatinine Ratio 31.9 H (10-20) Glucose 235 H (70-99(Fasting)) mg/dl POC Glucose 219 H 215 H (70-99) mg/dl
--- NOTE | 2022-06-18 14:57 | Pharmacy Report ---
Pharmacy Glycemic Short Note 2 - Date of Service June 18, 2022 - Glycemic Short BSG Results (Last 24 hours): 06/17/22 06/17/22 06/18/22 16:18 20:02 06:12 Glucose 235 H POC Glucose 217 H 242 H 06/18/22 06/18/22 07:33 11:29 Glucose POC Glucose 219 H 215 H OUTPATIENT ANTIDIABETIC REGIMEN: * NPH 50 units BID + Regular insulin * HbA1C ordered ASSESSMENT: * Mr Storm is a 66 y/o M with a PMH of T2DM who presents with a diabetic infection. * Patient has been here for several days. * BSGs have ranged from 160-280 over the past view days. Patient has received around 70 units of insulin per day (30-40 units of insulin and 30ish units of bolus). * Will increase basal by 20% to 50 units/ day today. Starting tomorrow, will provide additional step up to 60 units per day. * Tighten Novolog to what is appropriate for 50 units/day. PLAN FOR INPATIENT GLYCEMIC CONTROL: * Hold outpatient oral diabetes medications * Basal insulin * Lantus 30 units SQ this morning then 20 units tonight (50 units today) then starting tomorrow 25 units SQ BID (30 units if BSG > 180 mg/dL) * Bolus insulin * NovoLog per scale ACHS or Q6hrs while NPO * Goal Range: Low 110 mg/dL - High 140 mg/dL * Correction Factor: 20 mg/dL/unit * Nutritional / Prandial insulin per carb ratio of 1 unit per 5 grams CHO consumed
--- NOTE | 2022-06-18 21:13 | Orthopedic Progress Note ---
Date of Service June 18, 2022 Assessment & Plan (1) Diabetic foot infection: Plan: Interdigital spaces well healed. Diabetic bullae to left foot and leg. Early signs of retro calcaneal heel wound present. Waffle boot ordered for immediate use. Off loading importance was discussed. Continue with spacers/ DSD applied to left leg and foot. Will continue to evaluate while in house. Thank you for allowing me to participate in the care of this Patient. (2) Cellulitis: (3) Failure of outpatient treatment: (4) Leukocytosis: (5) History of right below knee amputation: (6) Diabetes mellitus, type II: Admission and Anticipated Discharge Date Admission Date: June 12, 2022 Subjective Patient seen at bedside for dressing change and evaluation. Patient returns from MRI. He communicates large bowel movement this morning. Reports left leg increase in edema, no discomfort. Physical Exam Skin: Bullae noted to lateral foot, left leg and retro heel. Wounds at interdigital space well healed. Neurologic: Decreased epicritic sensation to left foot Psychiatric: Orientation: oriented x 3 Results & Data ([facility]) Vital Signs (Past 12 Hours) Vital Signs Temp Pulse Pulse Resp BP Pulse Ox O2 Del Method 06/18/22 19:33 36.2 C L 74 18 124/81 99 Room Air 06/18/22 15:40 69 06/18/22 14:45 36.2 C L 71 14 121/78 97 Room Air 06/18/22 11:55 37.1 C 70 19 125/77 93 Room Air 06/18/22 11:25 36.4 C L 68 16 134/86 94 Room Air (1) Cellulitis Laterality: left Site of cellulitis: extremity Site of cellulitis of extremity: lower extremity Qualified Code(s): L03.116 - Cellulitis of left lower limb (2) Leukocytosis Leukocytosis type: unspecified Qualified Code(s): D72.829 - Elevated white blood cell count, unspecified
--- NOTE | 2022-06-18 21:20 | Magnetic Resonance Report ---
MRI OF THE LEFT FOREFOOT WITHOUT IV CONTRAST CLINICAL HISTORY: Infection. Charcot ankle. Diabetes. COMPARISON STUDY: Radiographs of the left foot dated 06/12/2022. TECHNIQUE: MRI of the left forefoot is performed utilizing various T1 and T2-weighted sequences in th e axial, sagittal, and coronal planes. IV contrast was not administered for this examination. Examina tion is modestly degraded by motion artifact. FINDINGS: Marrow signal intensity is heterogeneous. There is no marrow edema or T1 signal abnormality identified in the forefoot typical for osteomyelitis. Degenerative changes at the first metatarsophalangeal joint and throughout the midfoot, greatest at t he tarsometatarsal articulations. There is no MRI evidence of fracture. Diffuse superficial and deep soft tissue edema is seen throughout the forefoot. No organized fluid collection is seen to indicate abscess. Imaged portions of the plantar fascia are normal. There is evidence of a nonspecific myositi s versus denervation of the regional musculature. The visualized flexor and extensor tendons are inta ct. IMPRESSION: 1. There is no MRI evidence of osteomyelitis of the left forefoot. 2. Diffuse soft tissue edema as above. Correlate clinically for evidence of cellulitis. 3. No organized/drainable fluid collection is seen to suggest abscess. Dictated: 06/18/2022 6:27 PM Transcribed: 06/18/2022 7:48 PM Bhavani [id number] [email or web address] Electronically signed by: Laureano Merlos M.D. 06/18/2022 9:19 PM
[2022-06-18] MEDS: traMADol HCL 50 MG TABLET PO PRN (23:40)
[2022-06-19] MEDS: MEROPENEM 500 MG in SYRINGE 0 ML IV SCH ×2 (02:15→08:36)
[2022-06-19] MEDS: HEPARIN SOD 5,000 UNIT/0.5 ML VIAL SQ SCH ×3 (05:37→21:30)
[2022-06-19 06:47] LABS: Hematocrit (blood only) 36.8 % (40.1-51.0); Mean Corpuscular Hemoglobin 28.5 pg (25.0-34.0); Mean Corpuscular Hgb Conc 32.6 g/dL (32.0-36.0); Mean Corpuscular Volume 87.4 fL (80.0-100.0); Mean Platelet Volume 10.1 fL (9.4-12.4); Platelet Count 250 K/uL (130-400); RDW Coefficient of Variation 15.5 % (11.5-14.5); RDW Standard Deviation 49.4 fL (36.4-46.3); Red Blood Count 4.21 M/uL (4.63-6.08); White Blood Count 10.95 K/ul (4.8-10.8)
[2022-06-19 07:29] LABS: BUN Creatinine Ratio 34.4 (10-20); Calcium 8.6 mg/dl (8.5-10.1); Creatinine Clr Calc Pharmacy 89.2 ml/min; Est GFR (African American) 66.2 ml/min; Est GFR (Non-African American) 57.1 ml/min; Magnesium 2.2 mg/dl (1.7-2.4); Phosphorus 3.4 mg/dl (2.5-4.9); Potassium 3.9 mmol/L (3.5-5.1)
[2022-06-19 08:17] LABS: Estimated Average Glucose 174 mg/dl; Hemoglobin A1C 7.7 % (4.5-5.6)
[2022-06-19] MEDS: INSULIN ASPART PER UNIT SC SCH ×4 (08:31→21:26)
[2022-06-19] MEDS: LANTUS PER UNIT CHARGE SQ SCH ×2 (08:32→21:27)
[2022-06-19] MEDS: POLYETHYLENE (MIRALAX) 17 GM PACK PO SCH (08:38)
[2022-06-19] MEDS: FUROSEMIDE 40 MG/4 ML VIAL IV SCH ×2 (08:39→21:30)
[2022-06-19] MEDS: ASPIRIN 81 MG ECTAB PO SCH (08:39)
[2022-06-19] MEDS: CLOPIDOGREL BISULFATE 75 MG TAB PO SCH (08:39)
[2022-06-19] MEDS: METOPROLOL SUCC 25MG EXT REL TAB PO SCH (08:39)
[2022-06-19] MEDS: ISOSORBIDE MONO EXTENDED REL 30 MG TABCR PO SCH (08:39)
--- NOTE | 2022-06-19 10:15 | Hospitalist Progress Note ---
Date of Service June 19, 2022 Assessment & Plan (1) Diabetic foot infection: Plan: Failed outpatient management with clindamycin Foot xray showed Diffuse soft tissue swelling without acute fracture or dislocation identified. WBC 18K on admission, Trended up to 20K, now trending down to 14K Blood culture grew gram-positive cocci- coag negative staph not lugnensis Wound cx grew Alcaligensis faecalis and group B strep Received Dapto and azactam in the ER Podiatry on board. No surgical intervention at this time Echo did not noted any vegetation thrombus Repeat blood cx no growth so far Leukocytosis currently resolved Dr Orlando had discussed with ID that recommended to discontinue Azethreonam and Daptomycin Have been on meropenem MRI L foot did not show osteomyelitis Discussed with ID Julia Laboy via tigertext. He recommends changing from IV meropenem to po levofloxacin and clindaymycin for another 7 days to complete treatment ALEXIA on CKD (chronic kidney disease), stage III: Creatinine on admission 1.9 Creatinine 1.31 today Nephrology on board Currently on Lasix IV 40mg BID Continue monitor BMP Chronic elevated troponin Acute on chronic systolic heart failure Elevated trops likely related to CKD and HFrEF Troponin 2442 on on admission, trending down to 2178, then 1905 Denies any chest pain ECHO showed Severe global hypokinesis of the LV with EF 25-30% Continue aspirin, plavix, metoprolol Continue lasix Diabetes mellitus, type II: Glucose has been elevated Most recent hemoglobin A1c 7.6 on 05/06/22 Continue lantus and insulin sliding scale Continue monitor BG Morbid obesity BMI 43 Counseled on weight loss DVT px on heparin subq Code status Full code Disposition CM working on placement Admission and Anticipated Discharge Date Admission Date: June 12, 2022 Subjective Patient seen and examined. Left foot pain is controlled Denied any nausea, vomiting, abdominal pain. Denied any chest pain, cough, shortness of breath. Has occasional dyspnea on exertion Denies any fevers, chills Constipation has resolved Reports generalized weakness Physical Exam Constitutional: + well hydrated and + obese; no acute distress Eyes: PERRL, conjunctivae normal, anicteric sclerae ENMT: external ear and nose normal, oropharynx normal Respiratory: normal respiratory effort; no respiratory distress Diminished breath sounds Cardiovascular: Rate/Rhythm: regular rate and regular rhythm S1 S2 Gastrointestinal (Abdomen): normal bowel sounds, soft, nontender, no hepatosplenomegaly Musculoskeletal: Right BKA. Left leg edema. Left foot dressing Neurologic: PERRL, EOMI, accommodation nl, no face palsy, no dysarthria Psychiatric: A+Ox3, euthymic affect Results & Data Results & Data ([facility]) Vital Signs (Past 12 Hours) Vital Signs Temp Pulse Pulse Resp BP Pulse Ox O2 Del Method 06/19/22 08:00 69 06/19/22 08:00 Room Air 06/19/22 07:12 37.1 C 72 19 141/87 H 99 Room Air 06/19/22 00:00 71 06/19/22 03:00 36.6 C 66 18 128/82 96 Room Air 06/18/22 23:24 36.4 C L 70 18 145/85 H 99 Room Air 06/18/22 22:43 Room Air Laboratory Results Abnormal lab results 06/18/22 06/18/22 06/19/22 Range/Units 17:52 20:08 06:12 WBC 10.95 H (4.8-10.8) K/ul RBC 4.21 L (4.63-6.08) M/uL Hgb 12.0 L (14.0-18.0) g/dl Hct 36.8 L (40.1-51.0) % RDW Std Deviation 49.4 H (36.4-46.3) fL RDW Coeff of Yonis 15.5 H (11.5-14.5) % BUN (6-23) mg/dl BUN/Creatinine Ratio (10-20) POC Glucose 175 H 204 H (70-99) mg/dl Hemoglobin A1c (4.5-5.6) % 06/19/22 06/19/22 Range/Units 06:12 06:12 WBC (4.8-10.8) K/ul RBC (4.63-6.08) M/uL Hgb (14.0-18.0) g/dl Hct (40.1-51.0) % RDW Std Deviation (36.4-46.3) fL RDW Coeff of Yonis (11.5-14.5) % BUN 45 H (6-23) mg/dl BUN/Creatinine Ratio 34.4 H (10-20) POC Glucose (70-99) mg/dl Hemoglobin A1c 7.7 H (4.5-5.6) %
[2022-06-19] MEDS: levoFLOXacin 750 MG TAB PO SCH (14:34)
[2022-06-19] MEDS: CLINDAMYCIN HCL 150 MG CAP PO SCH ×2 (14:34→21:31)
--- NOTE | 2022-06-19 15:01 | Pharmacy Report ---
Pharmacy Glycemic Short Note 2 - Date of Service June 19, 2022 - Glycemic Short BSG Results (Last 24 hours): 06/18/22 06/18/22 06/19/22 17:52 20:08 06:12 Glucose 90 POC Glucose 175 H 204 H 06/19/22 06/19/22 07:35 11:17 Glucose POC Glucose 82 81 OUTPATIENT ANTIDIABETIC REGIMEN: * NPH 50 units BID + Regular insulin * HbA1C = 7.7% ASSESSMENT: 06/19/22 * Roderick received 100 units of SQ insulin yesterday (50 units Lantus + 50 units NovoLog) * Fasting BSG is below goal (82 mg/dL). Lantus dose has been significantly increased the past three days. I suspect dose increases have become too aggressive as patient nears steady state. Will decrease basal insulin. * Lunch BSG also below goal (81 mg/dL). Will loosen CF and CR. 06/18/22 * Mr Storm is a 66 y/o M with a PMH of T2DM who presents with a diabetic infection. * Patient has been here for several days. * BSGs have ranged from 160-280 over the past view days. Patient has received around 70 units of insulin per day (30-40 units of insulin and 30ish units of bolus). * Will increase basal by 20% to 50 units/ day today. Starting tomorrow, will provide additional step up to 60 units per day. * Tighten Novolog to what is appropriate for 50 units/day. PLAN FOR INPATIENT GLYCEMIC CONTROL: * Hold outpatient oral diabetes medications * Basal insulin * Lantus 18 units x1 this morning, then start 10-20 units SQ per scale BID this evening: (10 units for BSG < 100, 15 units for BSG 100-140, 20 units for BSG > 140) * Bolus insulin * NovoLog per scale ACHS or Q6hrs while NPO * Goal Range: Low 110 mg/dL - High 140 mg/dL * Correction Factor: 25 mg/dL/unit * Nutritional / Prandial insulin per carb ratio of 1 unit per 6 grams CHO consumed
[2022-06-19] MEDS ORDERED: CALCIUM CARBONATE 500 MG CHEWABLE TAB PO PRN (17:57)
[2022-06-20] MEDS: HEPARIN SOD 5,000 UNIT/0.5 ML VIAL SQ SCH ×3 (05:35→21:04)
[2022-06-20] MEDS: CLINDAMYCIN HCL 150 MG CAP PO SCH ×3 (05:35→21:05)
[2022-06-20 06:36] LABS: Hematocrit (blood only) 37.7 % (40.1-51.0); Hemoglobin 12.3 g/dl (14.0-18.0); Mean Corpuscular Hemoglobin 28.5 pg (25.0-34.0); Mean Corpuscular Hgb Conc 32.6 g/dL (32.0-36.0); Mean Corpuscular Volume 87.3 fL (80.0-100.0); Mean Platelet Volume 10.3 fL (9.4-12.4); Platelet Count 260 K/uL (130-400); RDW Coefficient of Variation 15.4 % (11.5-14.5); RDW Standard Deviation 48.7 fL (36.4-46.3); Red Blood Count 4.32 M/uL (4.63-6.08); White Blood Count 8.77 K/ul (4.8-10.8)
[2022-06-20 07:01] LABS: BUN Creatinine Ratio 28.7 (10-20); Calcium 8.6 mg/dl (8.5-10.1); Creatinine Clr Calc Pharmacy 81.7 ml/min; Est GFR (African American) 59.6 ml/min; Est GFR (Non-African American) 51.4 ml/min; Phosphorus 3.4 mg/dl (2.5-4.9); Potassium 4.3 mmol/L (3.5-5.1)
[2022-06-20] MEDS: traMADol HCL 50 MG TABLET PO PRN (08:43)
[2022-06-20] MEDS: LANTUS PER UNIT CHARGE SQ SCH ×2 (08:44→21:04)
[2022-06-20] MEDS: INSULIN ASPART PER UNIT SC SCH ×4 (08:44→21:05)
[2022-06-20] MEDS: CLOPIDOGREL BISULFATE 75 MG TAB PO SCH (08:45)
[2022-06-20] MEDS: FUROSEMIDE 40 MG/4 ML VIAL IV SCH ×2 (08:46→19:21)
[2022-06-20] MEDS: METOPROLOL SUCC 25MG EXT REL TAB PO SCH (08:46)
[2022-06-20] MEDS: ISOSORBIDE MONO EXTENDED REL 30 MG TABCR PO SCH (08:46)
[2022-06-20] MEDS: ASPIRIN 81 MG ECTAB PO SCH (08:46)
[2022-06-20] MEDS: POLYETHYLENE (MIRALAX) 17 GM PACK PO SCH (08:47)
--- NOTE | 2022-06-20 10:12 | Pharmacy Report ---
Pharmacy Glycemic Short Note 2 - Date of Service June 20, 2022 - Glycemic Short BSG Results (Last 24 hours): 06/19/22 06/19/22 06/19/22 11:17 16:27 20:18 Glucose POC Glucose 81 114 H 167 H 06/20/22 06/20/22 06:19 07:26 Glucose 166 H POC Glucose 158 H OUTPATIENT ANTIDIABETIC REGIMEN: * NPH 50 units BID + Regular insulin * HbA1C = 7.7% ASSESSMENT: 06/20/22 * Roderick received 69 units of SQ insulin yesterday; 38 units Lantus + 31 units Novolog (~30% reduction compared to 06/18 usage) * Fasting BSG is trending upward. Anticipate patient needing about 40 units of basal per day. * Post prandial BSG coverage was adequate yesterday following dose reduction, will continue current parameters for today. 06/19/22 * Roderick received 100 units of SQ insulin yesterday (50 units Lantus + 50 units NovoLog) * Fasting BSG is below goal (82 mg/dL). Lantus dose has been significantly increased the past three days. I suspect dose increases have become too aggressive as patient nears steady state. Will decrease basal insulin. * Lunch BSG also below goal (81 mg/dL). Will loosen CF and CR. 06/18/22 * Mr Storm is a 66 y/o M with a PMH of T2DM who presents with a diabetic infection. * Patient has been here for several days. * BSGs have ranged from 160-280 over the past view days. Patient has received around 70 units of insulin per day (30-40 units of insulin and 30ish units of bolus). * Will increase basal by 20% to 50 units/ day today. Starting tomorrow, will provide additional step up to 60 units per day. * Tighten Novolog to what is appropriate for 50 units/day. PLAN FOR INPATIENT GLYCEMIC CONTROL: * Hold outpatient oral diabetes medications * Basal insulin * Lantus 20-22 units SQ per scale BID this evening: (20 units for BSG < 140, 22 units for BSG 140 mg/dl or more) * Bolus insulin * NovoLog per scale ACHS or Q6hrs while NPO * Goal Range: Low 110 mg/dL - High 140 mg/dL * Correction Factor: 25 mg/dL/unit * Nutritional / Prandial insulin per carb ratio of 1 unit per 5 grams CHO consumed
--- NOTE | 2022-06-20 11:38 | Hospitalist Progress Note ---
Date of Service June 20, 2022 Assessment & Plan (1) Diabetic foot infection: Plan: Failed outpatient management with clindamycin Foot xray showed Diffuse soft tissue swelling without acute fracture or dislocation identified. WBC 18K on admission, Trended up to 20K, now trending down to 8K. Leukocytosis is resolved Blood culture grew gram-positive cocci- coag negative staph not lugnensis Wound cx grew Alcaligensis faecalis and group B strep Echo did not note any vegetation thrombus Repeat blood cx no growth so far Was on meropenem MRI L foot did not show osteomyelitis Discussed with ID Julia Laboy via [employer]. He recommends changing from IV meropenem to po levofloxacin and clindamycin for another 7 days to complete treatment Podiatry on board ALEXIA on CKD (chronic kidney disease), stage III: Creatinine on admission 1.9 Creatinine 1.43 today Nephrology on board Currently on Lasix IV 40mg BID Chronic elevated troponin Acute on chronic systolic heart failure Elevated trops likely related to CKD and HFrEF Troponin 2442 on on admission, trending down to 2178, then 1905 Denies any chest pain ECHO showed Severe global hypokinesis of the LV with EF 25-30% Continue aspirin, plavix, metoprolol Continue lasix while inpatient Discussed with Nephrology who recommend changing to torsemide 40mg BID on discharge Diabetes mellitus, type II: Glucose has been elevated Most recent hemoglobin A1c 7.6 on 05/06/22 Continue lantus and insulin sliding scale Continue monitor BG Morbid obesity BMI 43 Counseled on weight loss DVT px on heparin subq Code status Full code Disposition CM working on placement Admission and Anticipated Discharge Date Admission Date: June 12, 2022 Subjective Patient seen and examined. Denied any nausea, vomiting, abdominal pain,constipation. Denied any chest pain, cough, shortness of breath. Denies any fevers, chills Reports generalized weakness is gradually improving Physical Exam Constitutional: + well hydrated and + obese; no acute distress Eyes: PERRL, conjunctivae normal, anicteric sclerae ENMT: external ear and nose normal, oropharynx normal Respiratory: normal respiratory effort; no respiratory distress Diminished breath sounds Cardiovascular: Rate/Rhythm: regular rate and regular rhythm S1 S2 Gastrointestinal (Abdomen): normal bowel sounds, soft, nontender, no hepatosplenomegaly Musculoskeletal: Right BKA. Left leg edema. Left foot dressing Neurologic: PERRL, EOMI, accommodation nl, no face palsy, no dysarthria Psychiatric: A+Ox3, euthymic affect Results & Data Results & Data ([facility]) Vital Signs (Past 12 Hours) Vital Signs Temp Pulse Pulse Resp BP Pulse Ox O2 Del Method 06/20/22 11:22 36.8 C 84 18 106/80 94 Room Air 06/20/22 11:01 Room Air 06/20/22 08:00 36.4 C L 76 20 154/107 H 97 Room Air 06/20/22 08:00 73 06/20/22 03:43 36.5 C 70 20 154/79 H 96 Room Air Laboratory Results Abnormal lab results 06/19/22 06/19/22 06/20/22 Range/Units 16:27 20:18 06:19 RBC 4.32 L (4.63-6.08) M/uL Hgb 12.3 L (14.0-18.0) g/dl Hct 37.7 L (40.1-51.0) % RDW Std Deviation 48.7 H (36.4-46.3) fL RDW Coeff of Yonis 15.4 H (11.5-14.5) % Sodium (136-145) mmol/L BUN (6-23) mg/dl Creatinine (0.6-1.4) mg/dl BUN/Creatinine Ratio (10-20) Glucose (70-99(Fasting)) mg/dl POC Glucose 114 H 167 H (70-99) mg/dl 06/20/22 06/20/22 06/20/22 Range/Units 06:19 07:26 11:24 RBC (4.63-6.08) M/uL Hgb (14.0-18.0) g/dl Hct (40.1-51.0) % RDW Std Deviation (36.4-46.3) fL RDW Coeff of Yonis (11.5-14.5) % Sodium 134 L (136-145) mmol/L BUN 41 H (6-23) mg/dl Creatinine 1.43 H (0.6-1.4) mg/dl BUN/Creatinine Ratio 28.7 H (10-20) Glucose 166 H (70-99(Fasting)) mg/dl POC Glucose 158 H 196 H (70-99) mg/dl
[2022-06-20] MEDS: levoFLOXacin 750 MG TAB PO SCH (12:13)
[2022-06-21] MEDS: HEPARIN SOD 5,000 UNIT/0.5 ML VIAL SQ SCH ×3 (05:32→21:02)
[2022-06-21] MEDS: CLINDAMYCIN HCL 150 MG CAP PO SCH ×3 (05:32→21:02)
[2022-06-21] MEDS: levoFLOXacin 750 MG TAB PO SCH (08:07)
[2022-06-21] MEDS: CLOPIDOGREL BISULFATE 75 MG TAB PO SCH (08:07)
[2022-06-21] MEDS: POLYETHYLENE (MIRALAX) 17 GM PACK PO SCH (08:08)
[2022-06-21] MEDS: ISOSORBIDE MONO EXTENDED REL 30 MG TABCR PO SCH (08:08)
[2022-06-21] MEDS: METOPROLOL SUCC 25MG EXT REL TAB PO SCH (08:08)
[2022-06-21] MEDS: ASPIRIN 81 MG ECTAB PO SCH (08:08)
[2022-06-21] MEDS: FUROSEMIDE 40 MG/4 ML VIAL IV SCH ×2 (08:14→21:09)
[2022-06-21 08:16] LABS: BUN Creatinine Ratio 27.5 (10-20); Creatinine Clr Calc Pharmacy 82.2 ml/min; Est GFR (African American) 60.1 ml/min; Est GFR (Non-African American) 51.8 ml/min; Phosphorus 3.6 mg/dl (2.5-4.9); Potassium 4.4 mmol/L (3.5-5.1)
[2022-06-21] MEDS: INSULIN ASPART PER UNIT SC SCH ×4 (09:56→21:09)
--- NOTE | 2022-06-21 11:23 | Hospitalist Progress Note ---
Date of Service June 21, 2022 Assessment & Plan (1) Diabetic foot infection: Plan: Failed outpatient management with clindamycin Foot xray showed Diffuse soft tissue swelling without acute fracture or dislocation identified. WBC 18K on admission, Trended up to 20K, now trending down to 8K. Leukocytosis is resolved Blood culture grew gram-positive cocci- coag negative staph not lugnensis Wound cx grew Alcaligensis faecalis and group B strep Echo did not note any vegetation thrombus Repeat blood cx no growth so far Was on meropenem MRI L foot did not show osteomyelitis ID recommended changing from IV meropenem to po levofloxacin and clindamycin to complete treatment Podiatry on board ALEXIA on CKD (chronic kidney disease), stage III: Creatinine on admission 1.9 Creatinine 1.42 today Nephrology on board Currently on Lasix IV 40mg BID Chronic elevated troponin Acute on chronic systolic heart failure Elevated trops likely related to CKD and HFrEF Troponin 2442 on on admission, trending down to 2178, then 1905 Denies any chest pain ECHO showed Severe global hypokinesis of the LV with EF 25-30% Continue aspirin, plavix, metoprolol Continue lasix while inpatient Nephrology recommends changing to torsemide 40mg BID on discharge Diabetes mellitus, type II: Glucose has been elevated Most recent hemoglobin A1c 7.6 on 05/06/22 Continue lantus and insulin sliding scale Continue monitor BG Morbid obesity BMI 43 Counseled on weight loss DVT px on heparin subq Code status Full code Disposition CM working on placement Admission and Anticipated Discharge Date Admission Date: June 12, 2022 Subjective Patient seen and examined. No new complaints Denied any nausea, vomiting, abdominal pain,constipation. Denied any chest pain, cough, shortness of breath. Denies any fevers, chills Generalized weakness gradually improving Physical Exam Constitutional: + well hydrated and + obese; no acute distress Eyes: PERRL, conjunctivae normal, anicteric sclerae ENMT: external ear and nose normal, oropharynx normal Respiratory: normal respiratory effort; no respiratory distress Auscultation: lungs clear to auscultation bilaterally Cardiovascular: Rate/Rhythm: regular rate and regular rhythm S1 S2 Gastrointestinal (Abdomen): normal bowel sounds, soft, nontender, no hepatosplenomegaly Musculoskeletal: Right BKA. Left leg edema. Left foot dressing Neurologic: PERRL, EOMI, accommodation nl, no face palsy, no dysarthria Psychiatric: A+Ox3, euthymic affect Results & Data Results & Data ([facility]) Vital Signs (Past 12 Hours) Vital Signs Temp Pulse Resp BP Pulse Ox O2 Del Method 06/21/22 07:55 Room Air 06/21/22 07:26 36.8 C 71 16 126/74 97 Room Air Laboratory Results Abnormal lab results 06/20/22 06/20/22 06/20/22 Range/Units 15:44 17:08 20:10 Sodium (136-145) mmol/L BUN (6-23) mg/dl Creatinine (0.6-1.4) mg/dl BUN/Creatinine Ratio (10-20) Glucose (70-99(Fasting)) mg/dl POC Glucose 118 H 101 H 146 H (70-99) mg/dl 06/21/22 06/21/22 Range/Units 06:59 08:03 Sodium 135 L (136-145) mmol/L BUN 39 H (6-23) mg/dl Creatinine 1.42 H (0.6-1.4) mg/dl BUN/Creatinine Ratio 27.5 H (10-20) Glucose 101 H (70-99(Fasting)) mg/dl POC Glucose 104 H (70-99) mg/dl
[2022-06-21] MEDS: LANTUS PER UNIT CHARGE SQ SCH ×2 (13:03→21:09)
[2022-06-22] MEDS: DOCUSATE SODIUM 100 MG CAP PO PRN ×2 (06:05→21:22)
[2022-06-22] MEDS: HEPARIN SOD 5,000 UNIT/0.5 ML VIAL SQ SCH ×3 (06:06→21:14)
[2022-06-22] MEDS: CLINDAMYCIN HCL 150 MG CAP PO SCH ×3 (06:06→21:12)
[2022-06-22] MEDS: CLOPIDOGREL BISULFATE 75 MG TAB PO SCH (09:03)
[2022-06-22] MEDS: METOPROLOL SUCC 25MG EXT REL TAB PO SCH (09:04)
[2022-06-22] MEDS: ISOSORBIDE MONO EXTENDED REL 30 MG TABCR PO SCH (09:04)
[2022-06-22] MEDS: ASPIRIN 81 MG ECTAB PO SCH (09:04)
[2022-06-22] MEDS: POLYETHYLENE (MIRALAX) 17 GM PACK PO SCH (09:05)
[2022-06-22] MEDS: INSULIN ASPART PER UNIT SC SCH ×4 (09:05→21:16)
[2022-06-22] MEDS: FUROSEMIDE 40 MG/4 ML VIAL IV SCH ×2 (09:05→21:13)
[2022-06-22] MEDS: LANTUS PER UNIT CHARGE SQ SCH ×2 (09:13→21:16)
--- NOTE | 2022-06-22 11:09 | Hospitalist Progress Note ---
Date of Service June 22, 2022 Assessment & Plan (1) Diabetic foot infection: Plan: Failed outpatient management with clindamycin Foot xray showed Diffuse soft tissue swelling without acute fracture or dislocation identified. WBC 18K on admission, Trended up to 20K, now trending down to 8K. Leukocytosis is resolved Blood culture grew gram-positive cocci- coag negative staph not lugnensis Wound cx grew Alcaligensis faecalis and group B strep Echo did not note any vegetation thrombus Repeat blood cx no growth so far Was on meropenem MRI L foot did not show osteomyelitis ID recommended changing from IV meropenem to po levofloxacin and clindamycin to complete treatment Podiatry on board ALEXIA on CKD (chronic kidney disease), stage III: Creatinine on admission 1.9 Creatinine 1.42 today Nephrology on board Currently on Lasix IV 40mg BID Chronic elevated troponin Acute on chronic systolic heart failure Elevated trops likely related to CKD and HFrEF Troponin 2442 on on admission, trending down to 2178, then 1905 Denies any chest pain ECHO showed Severe global hypokinesis of the LV with EF 25-30% Continue aspirin, plavix, metoprolol Continue lasix while inpatient Nephrology recommends changing to torsemide 40mg BID on discharge Diabetes mellitus, type II: Glucose has been elevated Most recent hemoglobin A1c 7.6 on 05/06/22 Continue lantus and insulin sliding scale Continue monitor BG Morbid obesity BMI 43 Counseled on weight loss DVT px on heparin subq Code status Full code Disposition CM working on placement Admission and Anticipated Discharge Date Admission Date: June 12, 2022 Subjective Patient seen and examined. Denied any new complaints Denied any nausea, vomiting, abdominal pain,constipation. Denied any chest pain, cough, shortness of breath. Denies any fevers, chills Physical Exam Constitutional: + well hydrated and + obese; no acute distress Eyes: PERRL, conjunctivae normal, anicteric sclerae ENMT: external ear and nose normal, oropharynx normal Respiratory: normal respiratory effort; no respiratory distress Auscultation: lungs clear to auscultation bilaterally Cardiovascular: Rate/Rhythm: regular rate and regular rhythm S1 S2 Gastrointestinal (Abdomen): normal bowel sounds, soft, nontender, no hepatosplenomegaly Musculoskeletal: Right BKA. +Left leg edema. Left foot dressing Neurologic: PERRL, EOMI, accommodation nl, no face palsy, no dysarthria Psychiatric: A+Ox3, euthymic affect Results & Data Results & Data ([facility]) Vital Signs (Past 12 Hours) Vital Signs Temp Pulse Resp BP Pulse Ox O2 Del Method 06/22/22 07:29 36.7 C 68 18 119/75 98 Room Air
[2022-06-22] MEDS: levoFLOXacin 750 MG TAB PO SCH (12:25)
[2022-06-23] MEDS: CLINDAMYCIN HCL 150 MG CAP PO SCH ×3 (05:13→21:01)
[2022-06-23] MEDS: HEPARIN SOD 5,000 UNIT/0.5 ML VIAL SQ SCH (05:13)
[2022-06-23 07:18] LABS: Hematocrit (blood only) 38.5 % (40.1-51.0); Hemoglobin 12.2 g/dl (14.0-18.0); Mean Corpuscular Hemoglobin 28.2 pg (25.0-34.0); Mean Corpuscular Hgb Conc 31.7 g/dL (32.0-36.0); Mean Corpuscular Volume 88.9 fL (80.0-100.0); Mean Platelet Volume 10.6 fL (9.4-12.4); Platelet Count 294 K/uL (130-400); RDW Coefficient of Variation 15.4 % (11.5-14.5); RDW Standard Deviation 49.9 fL (36.4-46.3); Red Blood Count 4.33 M/uL (4.63-6.08); White Blood Count 7.95 K/ul (4.8-10.8)
[2022-06-23 08:08] LABS: BUN Creatinine Ratio 25.2 (10-20); Calcium 9.4 mg/dl (8.5-10.1); Creatinine Clr Calc Pharmacy 75.4 ml/min; Est GFR (Non-African American) 46.6 ml/min; Potassium 5.1 mmol/L (3.5-5.1)
[2022-06-23] MEDS: ASPIRIN 81 MG ECTAB PO SCH (08:35)
[2022-06-23] MEDS: ISOSORBIDE MONO EXTENDED REL 30 MG TABCR PO SCH (08:35)
[2022-06-23] MEDS: CLOPIDOGREL BISULFATE 75 MG TAB PO SCH (08:35)
[2022-06-23] MEDS: METOPROLOL SUCC 25MG EXT REL TAB PO SCH (08:35)
[2022-06-23] MEDS: POLYETHYLENE (MIRALAX) 17 GM PACK PO SCH (08:36)
[2022-06-23] MEDS: INSULIN ASPART PER UNIT SC SCH ×4 (09:23→20:54)
[2022-06-23] MEDS: LANTUS PER UNIT CHARGE SQ SCH (09:24)
[2022-06-23] MEDS: FUROSEMIDE 40 MG/4 ML VIAL IV SCH ×2 (09:34→20:58)
--- NOTE | 2022-06-23 09:56 | Pharmacy Report ---
Pharmacy Glycemic Short Note 2 - Date of Service June 23, 2022 - Glycemic Short BSG Results (Last 24 hours): 06/22/22 06/22/22 06/22/22 11:55 17:10 20:37 Glucose POC Glucose 159 H 103 H 149 H 06/23/22 06/23/22 06:16 08:20 Glucose 102 H POC Glucose 98 OUTPATIENT ANTIDIABETIC REGIMEN: * NPH 50 units BID + Regular insulin HbA1C = 7.7% (06/19/22) ASSESSMENT: 06/23/22 * SC has remained on same regimen for past 48 hours, receiving 77-79 units of insulin/day * Fasting BSG of 98 mg/dL this morning - will allow for reduced basal dose this evening based on BSG * Remains on PO antibiotics, no other changes 06/20/22 * Roderick received 69 units of SQ insulin yesterday; 38 units Lantus + 31 units Novolog (~30% reduction compared to 06/18 usage) * Fasting BSG is trending upward. Anticipate patient needing about 40 units of basal per day. * Post prandial BSG coverage was adequate yesterday following dose reduction, will continue current parameters for today. 06/19/22 * Roderick received 100 units of SQ insulin yesterday (50 units Lantus + 50 units NovoLog) * Fasting BSG is below goal (82 mg/dL). Lantus dose has been significantly increased the past three days. I suspect dose increases have become too aggressive as patient nears steady state. Will decrease basal insulin. * Lunch BSG also below goal (81 mg/dL). Will loosen CF and CR. 06/18/22 * Mr Storm is a 66 y/o M with a PMH of T2DM who presents with a diabetic infection. * Patient has been here for several days. * BSGs have ranged from 160-280 over the past view days. Patient has received around 70 units of insulin per day (30-40 units of insulin and 30ish units of bolus). * Will increase basal by 20% to 50 units/ day today. Starting tomorrow, will provide additional step up to 60 units per day. * Tighten Novolog to what is appropriate for 50 units/day. PLAN FOR INPATIENT GLYCEMIC CONTROL: * Basal insulin * Lantus 20 units SC qAM * Lantus scale 18-20 units SC HS * Bolus insulin - continue * NovoLog per scale ACHS or Q6hrs while NPO * Goal Range: Low 110 mg/dL - High 140 mg/dL * Correction Factor: 25 mg/dL/unit * Nutritional / Prandial insulin per carb ratio of 1 unit per 5 grams CHO consumed
--- NOTE | 2022-06-23 10:39 | Nephrology Progress Note ---
Date of Service June 23, 2022 Assessment & Plan Admission and Anticipated Discharge Date Admission Date: June 12, 2022 Subjective Assessment & Plan (1) CKD (chronic kidney disease), stage III: Plan: A 66-year-old male with longstanding type 2 diabetes for 30+ years with underlying chronic kidney disease and a fluctuating baseline creatinine, admitted with diabetic foot infection after failing outpatient antibiotic treatment. Nephrology has been consulted for acute on chronic renal failure as well as hyponatremia. Acute renal failure. His baseline creatinine is hard to pinpoint, which is not unexpected given his severe cardiomyopathy as well as longstanding type 2 diabetes. Creatinine is within his trend. Some rise in creatinine is to be expected in the current setting of diabetic foot infection, leukocytosis, antibiotic exposure. (2) Diabetic foot infection: Plan: - Renally dose ABX . (3) Acute hyponatremia: Plan: Sec to volume overload. na now normal. -. The patient has hypervolemic hyponatremia, which means he needs IV Lasix for the treatment. Creatinine can fluctuate . - Continue with 40 mg IV twice daily for now Subjective Pt was seen and examined for follow up of L foot infection and ARF/Low Na Lying in bed with no acute distress foot infection better. c/o some itching Review of Systems Review of Systems: All systems reviewed & are unremarkable except as noted in HPI & below Physical Exam Physical Exam: PHYSICAL EXAMINATION: GENERAL: A middle-aged white obese male He is awake, alert, oriented x3 CHEST: Bilateral decreased breath sound, but very poor quality exam. CARDIOVASCULAR: S1 and S2, regular. Distant heart sound. ABDOMEN: Morbidly obese, soft, nontender. EXTREMITIES: Show right BKA, hardly any edema in the right thigh, but significant edema in the left thigh and the left lower extremity with bandaged lower extremity wound. NEUROLOGIC: Awake, alert, oriented, moving all 4 extremities. Results & Data ([facility]) Vital Signs (Past 12 Hours) Vital Signs Temp Pulse Resp BP Pulse Ox O2 Del Method 06/23/22 07:57 36.7 C 77 18 125/74 96 Room Air
[2022-06-23] MEDS: levoFLOXacin 750 MG TAB PO SCH (11:29)
--- NOTE | 2022-06-23 12:39 | Hospitalist Progress Note ---
Date of Service June 23, 2022 Assessment & Plan (1) Diabetic foot infection: Plan: Failed outpatient management with clindamycin Foot xray showed Diffuse soft tissue swelling without acute fracture or dislocation identified. WBC 18K on admission, Trended up to 20K, now trending down to 8K. Leukocytosis is resolved Blood culture grew gram-positive cocci- coag negative staph not lugnensis Wound cx grew Alcaligensis faecalis and group B strep Echo did not note any vegetation thrombus Repeat blood cx no growth so far Was on meropenem MRI L foot did not show osteomyelitis ID recommended changing from IV meropenem to po levofloxacin and clindamycin to complete treatment Podiatry recommendations noted ALEXIA on CKD (chronic kidney disease), stage III: Creatinine on admission 1.9 Creatinine 1.55 today Nephrology on board Currently on Lasix IV 40mg BID Chronic elevated troponin Acute on chronic systolic heart failure Elevated trops likely related to CKD and HFrEF Troponin 2442 on on admission, trending down to 2178, then 1905 Denies any chest pain ECHO showed Severe global hypokinesis of the LV with EF 25-30% Continue aspirin, plavix, metoprolol Continue lasix while inpatient Nephrology had recommended changing to torsemide 40mg BID on discharge Diabetes mellitus, type II: Glucose has been elevated Most recent hemoglobin A1c 7.6 on 05/06/22 Continue lantus and insulin sliding scale Continue monitor BG Morbid obesity BMI 43 Counseled on weight loss DVT px : Told RN to hold hep for today and monitor for any recurrence of epistaxis Code status Full code Disposition CM working on placement Admission and Anticipated Discharge Date Admission Date: June 12, 2022 Subjective Patient seen and examined. Reported epistaxis yesterday and this AM that resolved with pressure Reports occasional pruritus. No rash Denied any nausea, vomiting, abdominal pain,constipation. Denied any chest pain, cough, shortness of breath. Denies any fevers, chills Physical Exam Constitutional: + well hydrated and + obese; no acute distress Eyes: PERRL, conjunctivae normal, anicteric sclerae ENMT: external ear and nose normal, oropharynx normal Respiratory: normal respiratory effort; no respiratory distress Auscultation: lungs clear to auscultation bilaterally Cardiovascular: Rate/Rhythm: regular rate and regular rhythm S1 S2 Gastrointestinal (Abdomen): normal bowel sounds, soft, nontender, no hepatosplenomegaly Musculoskeletal: Right BKA. +Left leg edema. Left foot dressing Neurologic: PERRL, EOMI, accommodation nl, no face palsy, no dysarthria Psychiatric: A+Ox3, euthymic affect Results & Data Results & Data ([facility]) Vital Signs (Past 12 Hours) Vital Signs Temp Pulse Resp BP Pulse Ox O2 Del Method 06/23/22 11:30 Room Air 06/23/22 07:57 36.7 C 77 18 125/74 96 Room Air Laboratory Results Abnormal lab results 06/22/22 06/22/22 06/23/22 Range/Units 17:10 20:37 06:16 RBC 4.33 L (4.63-6.08) M/uL Hgb 12.2 L (14.0-18.0) g/dl Hct 38.5 L (40.1-51.0) % MCHC 31.7 L (32.0-36.0) g/dL RDW Std Deviation 49.9 H (36.4-46.3) fL RDW Coeff of Yonis 15.4 H (11.5-14.5) % BUN (6-23) mg/dl Creatinine (0.6-1.4) mg/dl BUN/Creatinine Ratio (10-20) Glucose (70-99(Fasting)) mg/dl POC Glucose 103 H 149 H (70-99) mg/dl 06/23/22 06/23/22 Range/Units 06:16 12:08 RBC (4.63-6.08) M/uL Hgb (14.0-18.0) g/dl Hct (40.1-51.0) % MCHC (32.0-36.0) g/dL RDW Std Deviation (36.4-46.3) fL RDW Coeff of Yonis (11.5-14.5) % BUN 39 H (6-23) mg/dl Creatinine 1.55 H (0.6-1.4) mg/dl BUN/Creatinine Ratio 25.2 H (10-20) Glucose 102 H (70-99(Fasting)) mg/dl POC Glucose 186 H (70-99) mg/dl
[2022-06-23] MEDS: diphenhydrAMINE Capsule 25 MG CAP PO PRN (20:58)
[2022-06-23] MEDS ORDERED: LANTUS PER UNIT CHARGE SQ SCH (21:00)
[2022-06-24] MEDS: HEPARIN SOD 5,000 UNIT/0.5 ML VIAL SQ SCH ×3 (05:53→21:06)
[2022-06-24] MEDS: CLINDAMYCIN HCL 150 MG CAP PO SCH ×3 (05:53→21:07)
[2022-06-24] MEDS: ISOSORBIDE MONO EXTENDED REL 30 MG TABCR PO SCH (08:09)
[2022-06-24] MEDS: CLOPIDOGREL BISULFATE 75 MG TAB PO SCH (08:10)
[2022-06-24] MEDS: METOPROLOL SUCC 25MG EXT REL TAB PO SCH (08:10)
[2022-06-24] MEDS: ASPIRIN 81 MG ECTAB PO SCH (08:10)
[2022-06-24] MEDS: POLYETHYLENE (MIRALAX) 17 GM PACK PO SCH (08:13)
[2022-06-24] MEDS: FUROSEMIDE 40 MG/4 ML VIAL IV SCH ×2 (08:18→21:06)
[2022-06-24] MEDS: diphenhydrAMINE Capsule 25 MG CAP PO PRN (08:21)
[2022-06-24] MEDS: INSULIN ASPART PER UNIT SC SCH ×4 (09:06→21:02)
[2022-06-24] MEDS: LANTUS PER UNIT CHARGE SQ SCH ×2 (09:06→21:02)
[2022-06-24] MEDS: levoFLOXacin 750 MG TAB PO SCH (11:34)
--- NOTE | 2022-06-24 15:20 | Hospitalist Progress Note ---
Date of Service June 24, 2022 Assessment & Plan (1) Diabetic foot infection: Plan: Failed outpatient management with clindamycin Foot xray showed Diffuse soft tissue swelling without acute fracture or dislocation identified. WBC 18K on admission, Trended up to 20K, now trending down to 8K. Leukocytosis is resolved Blood culture grew gram-positive cocci- coag negative staph not lugnensis Wound cx grew Alcaligensis faecalis and group B strep Echo did not note any vegetation thrombus Repeat blood cx no growth so far Was on meropenem MRI L foot did not show osteomyelitis ID recommended changing from IV meropenem to po levofloxacin and clindamycin to complete treatment Podiatry recommendations noted ALEXIA on CKD (chronic kidney disease), stage III: Creatinine on admission 1.9 Creatinine 1.55 yesterday Nephrology on board Currently on Lasix IV 40mg BID Chronic elevated troponin Acute on chronic systolic heart failure Elevated trops likely related to CKD and HFrEF Troponin 2442 on on admission, trending down to 2178, then 1905 Denies any chest pain ECHO showed Severe global hypokinesis of the LV with EF 25-30% Continue aspirin, plavix, metoprolol Continue lasix while inpatient Nephrology had recommended changing to torsemide 40mg BID on discharge Diabetes mellitus, type II: Glucose has been elevated Most recent hemoglobin A1c 7.6 on 05/06/22 Continue lantus and insulin sliding scale Continue monitor BG Morbid obesity BMI 43 DVT px : Hep sq Code status Full code Disposition CM working on placement. Patient is stable for dc to SNF once a bed is available Admission and Anticipated Discharge Date Admission Date: June 12, 2022 Subjective Patient seen and examined. No longer having epistaxis Denied any new complaints Denied any nausea, vomiting, abdominal pain,constipation. Denied any chest pain, cough, shortness of breath. Denies any fevers, chills Physical Exam Constitutional: + well hydrated and + obese; no acute distress Eyes: PERRL, conjunctivae normal, anicteric sclerae ENMT: external ear and nose normal, oropharynx normal Respiratory: normal respiratory effort; no respiratory distress Auscultation: lungs clear to auscultation bilaterally Cardiovascular: Rate/Rhythm: regular rate and regular rhythm S1 S2 Gastrointestinal (Abdomen): normal bowel sounds, soft, nontender, no hepato splenomegaly Musculoskeletal: Right BKA with prosthesis Left leg edema with left foot dressing Neurologic: PERRL, EOMI, accommodation nl, no face palsy, no dysarthria Psychiatric: A+Ox3, euthymic affect Results & Data Results & Data ([facility]) Vital Signs (Past 12 Hours) Vital Signs Temp Pulse Resp BP Pulse Ox O2 Del Method 06/24/22 15:14 37.0 C 76 18 153/79 H 97 Room Air 06/24/22 07:54 36.5 C 72 18 179/82 H 98 Room Air Laboratory Results Abnormal lab results 06/23/22 06/23/22 06/24/22 Range/Units 17:08 20:35 08:22 POC Glucose 133 H 133 H 107 H (70-99) mg/dl 06/24/22 Range/Units 12:16 POC Glucose 169 H (70-99) mg/dl
[2022-06-25] MEDS: CLINDAMYCIN HCL 150 MG CAP PO SCH ×3 (05:10→21:45)
[2022-06-25] MEDS: HEPARIN SOD 5,000 UNIT/0.5 ML VIAL SQ SCH ×3 (05:10→21:46)
[2022-06-25] MEDS: diphenhydrAMINE Capsule 25 MG CAP PO PRN (07:38)
[2022-06-25] MEDS: ASPIRIN 81 MG ECTAB PO SCH (07:49)
[2022-06-25] MEDS: CLOPIDOGREL BISULFATE 75 MG TAB PO SCH (07:49)
[2022-06-25] MEDS: ISOSORBIDE MONO EXTENDED REL 30 MG TABCR PO SCH (07:50)
[2022-06-25] MEDS: METOPROLOL SUCC 25MG EXT REL TAB PO SCH (07:51)
[2022-06-25 09:17] LABS: Basophils # (auto) 0.04 K/uL (0-0.2); Basophils % (auto) 0.6 %; Eosinophils % (auto) 4.7 %; Hematocrit (blood only) 40.1 % (40.1-51.0); Hemoglobin 12.8 g/dl (14.0-18.0); Immature Granulocytes # (auto) 0.04 K/uL (0.00-0.02); Immature Granulocytes % (auto) 0.6 %; Lymphocytes # (auto) 1.04 K/uL (1.2-3.4); Lymphocytes % (auto) 16.4 %; Mean Corpuscular Hemoglobin 28.5 pg (25.0-34.0); Mean Corpuscular Hgb Conc 31.9 g/dL (32.0-36.0); Mean Corpuscular Volume 89.3 fL (80.0-100.0); Mean Platelet Volume 10.3 fL (9.4-12.4); Monocytes # (auto) 0.63 K/uL (0.24-0.82); Monocytes % (auto) 9.9 %; Neutrophils # (auto) 4.29 K/uL (1.4-6.5); Neutrophils % (auto) 67.8 %; Platelet Count 331 K/uL (130-400); RDW Coefficient of Variation 15.3 % (11.5-14.5); RDW Standard Deviation 50.2 fL (36.4-46.3); Red Blood Count 4.49 M/uL (4.63-6.08); White Blood Count 6.34 K/ul (4.8-10.8)
[2022-06-25] MEDS: FUROSEMIDE 40 MG/4 ML VIAL IV SCH ×2 (09:23→21:57)
[2022-06-25] MEDS: LANTUS PER UNIT CHARGE SQ SCH ×2 (09:23→22:02)
[2022-06-25] MEDS: INSULIN ASPART PER UNIT SC SCH ×4 (09:32→22:01)
--- NOTE | 2022-06-25 09:44 | Nephrology Progress Note ---
Date of Service June 25, 2022 Assessment & Plan Admission and Anticipated Discharge Date Admission Date: June 12, 2022 Subjective Assessment & Plan (1) CKD (chronic kidney disease), stage III: Plan: A 66-year-old male with longstanding type 2 diabetes for 30+ years with underlying chronic kidney disease and a fluctuating baseline creatinine, admitted with diabetic foot infection after failing outpatient antibiotic treatment. Nephrology has been consulted for acute on chronic renal failure as well as hyponatremia. Acute renal failure. His baseline creatinine is hard to pinpoint, which is not unexpected given his severe cardiomyopathy as well as longstanding type 2 diabetes. Creatinine is within his trend. Some rise in creatinine is to be expected in the current setting of diabetic foot infection, leukocytosis, antibiotic exposure. - Continue with 40 mg IV twice daily for now pending labs from today (2) Diabetic foot infection: Plan: - Renally dose ABX . (3) Acute hyponatremia: Plan: Sec to volume overload. na now normal. The patient had hypervolemic hyponatremia, which means he needs IV Lasix for the treatment. Subjective Pt was seen and examined for follow up of L foot infection and ARF/Low Na Lying in bed with no acute distress foot infection better. c/o some itching labs pending for now Review of Systems Review of Systems: All systems reviewed & are unremarkable except as noted in HPI & below Physical Exam Physical Exam: PHYSICAL EXAMINATION: GENERAL: A middle-aged white obese male He is awake, alert, oriented x3 CHEST: Bilateral decreased breath sound, but very poor quality exam. CARDIOVASCULAR: S1 and S2, regular. Distant heart sound. ABDOMEN: Morbidly obese, soft, nontender. EXTREMITIES: Show right BKA, hardly any edema in the right thigh, but significant edema in the left thigh and the left lower extremity with bandaged lower extremity wound. NEUROLOGIC: Awake, alert, oriented, moving all 4 extremities. Results & Data ([facility]) Vital Signs (Past 12 Hours) Vital Signs Temp Pulse Resp BP Pulse Ox O2 Del Method 06/25/22 07:55 36.4 C L 62 17 129/77 98 Room Air
[2022-06-25 10:20] LABS: Albumin Level 3.5 gm/dl (3.4-5.0); BUN Creatinine Ratio 26.9 (10-20); Creatinine Clr Calc Pharmacy 80.6 ml/min; Est GFR (African American) 58.6 ml/min; Est GFR (Non-African American) 50.5 ml/min; Phosphorus 4.1 mg/dl (2.5-4.9); Potassium 4.4 mmol/L (3.5-5.1)
[2022-06-25] MEDS: levoFLOXacin 750 MG TAB PO SCH (12:41)
[2022-06-25] MEDS: POLYETHYLENE (MIRALAX) 17 GM PACK PO SCH (12:41)
--- NOTE | 2022-06-25 16:39 | Hospitalist Progress Note ---
Date of Service June 25, 2022 Assessment & Plan (1) Diabetic foot infection: Plan: Failed outpatient management with clindamycin Foot xray showed Diffuse soft tissue swelling without acute fracture or dislocation identified. WBC 18K on admission, Trended up to 20K, now trending down to 8K. Leukocytosis is resolved Blood culture grew gram-positive cocci- coag negative staph not lugnensis Wound cx grew Alcaligensis faecalis and group B strep Echo did not note any vegetation thrombus Repeat blood cx no growth so far Was on meropenem MRI L foot did not show osteomyelitis ID recommended changing from IV meropenem to po levofloxacin and clindamycin to complete treatment Will complete the course of the abx today Podiatry recommendations noted Will discuss with podiatry if pt needs any special orthotic foot wear and weight bearing restriction Podiatry reached out recommended to continue waffle boot and weight bearing as tolerated ALEXIA on CKD (chronic kidney disease), stage III: Creatinine on admission 1.9 Creatinine 1.4 today Nephrology on board Currently on Lasix IV 40mg BID Continue monitor BMP Chronic elevated troponin Acute on chronic systolic heart failure Elevated trops likely related to CKD and HFrEF Troponin 2442 on on admission, trending down to 2178, then 1905 Denies any chest pain ECHO showed Severe global hypokinesis of the LV with EF 25-30% Continue aspirin, Plavix, metoprolol Continue lasix while inpatient Nephrology had recommended changing to torsemide 40mg BID on discharge Diabetes mellitus, type II: Glucose has been elevated Most recent hemoglobin A1c 7.6 on 05/06/22 Continue lantus and insulin sliding scale Continue monitor BG Morbid obesity BMI 43 DVT px : Hep sq Code status Full code Disposition Case management found placement to [facility] for [facility], but pt does not want to go yet Admission and Anticipated Discharge Date Admission Date: June 12, 2022 Subjective Pt was seen and examined for follow up of L foot infection Sitting in the recliner with no acute distress L foot infection continues to improve Pt does not want to go to SNF yet because he said that there is no plan after leaving SNF when he goes home He said that if going to SNF that he will just sit around and not doing much that he would rather go home He said that he will talk to his son to see if he is willing to help him if he decides to come home Denies any chest pain, palpitation, dizziness and SOB Review of Systems Review of Systems: All systems reviewed & are unremarkable except as noted in Subjective Physical Exam Physical Exam: General- No acute distress Head- atraumatic Eyes- PERRL, EOMI, ENT- oropharynx clear Neck- supple, no JVD Lungs- clear to auscultation Heart- regular rhythm; no murmur Abdomen- normal bowel sounds, soft, nontender Extremities- no calf tenderness, RLE stump, +Left leg edema with left foot dressing Neuro- alert, oriented x 3; PERRL, EOMI; no facial palsy; no dysarthria Skin- warm & dry Results & Data Results & Data ([facility]) Vital Signs (Past 12 Hours) Vital Signs Temp Pulse Resp BP BP Pulse Ox O2 Del Method 06/25/22 14:16 36.9 C 66 17 119/71 97 Room Air 06/25/22 07:55 36.4 C L 62 17 129/77 98 Room Air
[2022-06-25] MEDS: EUCERIN CR 120 GM JAR EXT SCH (21:44)
[2022-06-26] MEDS: diphenhydrAMINE Capsule 25 MG CAP PO PRN (03:48)
[2022-06-26] MEDS: CLINDAMYCIN HCL 150 MG CAP PO SCH (05:42)
[2022-06-26] MEDS: HEPARIN SOD 5,000 UNIT/0.5 ML VIAL SQ SCH ×2 (05:42→16:22)
[2022-06-26] MEDS: POLYETHYLENE (MIRALAX) 17 GM PACK PO SCH (08:31)
[2022-06-26] MEDS: ISOSORBIDE MONO EXTENDED REL 30 MG TABCR PO SCH (08:32)
[2022-06-26] MEDS: ASPIRIN 81 MG ECTAB PO SCH (08:32)
[2022-06-26] MEDS: CLOPIDOGREL BISULFATE 75 MG TAB PO SCH (08:32)
[2022-06-26] MEDS: METOPROLOL SUCC 25MG EXT REL TAB PO SCH (08:33)
[2022-06-26] MEDS: INSULIN ASPART PER UNIT SC SCH ×4 (09:14→21:39)
[2022-06-26] MEDS: FUROSEMIDE 40 MG/4 ML VIAL IV SCH ×2 (09:16→21:28)
[2022-06-26] MEDS: LANTUS PER UNIT CHARGE SQ SCH ×2 (09:16→21:48)
[2022-06-26] MEDS: EUCERIN CR 120 GM JAR EXT SCH ×2 (09:17→21:27)
[2022-06-26 10:18] LABS: Basophils # (auto) 0.04 K/uL (0-0.2); Basophils % (auto) 0.7 %; Eosinophils # (auto) 0.31 K/uL (0-0.50); Eosinophils % (auto) 5.1 %; Hematocrit (blood only) 38.9 % (40.1-51.0); Hemoglobin 12.4 g/dl (14.0-18.0); Immature Granulocytes # (auto) 0.02 K/uL (0.00-0.02); Immature Granulocytes % (auto) 0.3 %; Lymphocytes # (auto) 0.94 K/uL (1.2-3.4); Lymphocytes % (auto) 15.6 %; Mean Corpuscular Hemoglobin 28.4 pg (25.0-34.0); Mean Corpuscular Hgb Conc 31.9 g/dL (32.0-36.0); Mean Corpuscular Volume 89.2 fL (80.0-100.0); Mean Platelet Volume 10.5 fL (9.4-12.4); Monocytes # (auto) 0.66 K/uL (0.24-0.82); Neutrophils # (auto) 4.05 K/uL (1.4-6.5); Neutrophils % (auto) 67.3 %; Platelet Count 302 K/uL (130-400); RDW Coefficient of Variation 15.4 % (11.5-14.5); RDW Standard Deviation 50.5 fL (36.4-46.3); Red Blood Count 4.36 M/uL (4.63-6.08); White Blood Count 6.02 K/ul (4.8-10.8)
[2022-06-26 11:00] LABS: Albumin Level 3.4 gm/dl (3.4-5.0); BUN Creatinine Ratio 28.5 (10-20); Calcium 9.8 mg/dl (8.5-10.1); Creatinine Clr Calc Pharmacy 80.1 ml/min; Est GFR (African American) 58.6 ml/min; Est GFR (Non-African American) 50.6 ml/min; Phosphorus 4.1 mg/dl (2.5-4.9); Potassium 4.4 mmol/L (3.5-5.1)
--- NOTE | 2022-06-26 15:02 | Hospitalist Progress Note ---
Date of Service June 26, 2022 Assessment & Plan (1) Diabetic foot infection: Plan: Failed outpatient management with clindamycin Foot xray showed Diffuse soft tissue swelling without acute fracture or dislocation identified. WBC 18K on admission, Trended up to 20K, now trending down to 8K. Leukocytosis has resolved Blood culture grew gram-positive cocci- coag negative staph not lugnensis Wound cx grew Alcaligensis faecalis and group B strep Echo did not note any vegetation thrombus Repeat blood cx no growth so far Was on meropenem MRI L foot did not show osteomyelitis ID recommended changing from IV meropenem to po levofloxacin and clindamycin to complete treatment Will complete the course of the abx today Podiatry recommendations noted Will discuss with podiatry if pt needs any special orthotic foot wear and weight bearing restriction Discussed with Dr. Saenz that recommended to continue waffle boot and weight bearing as tolerated Continue wound care on discharge Will need to follow up with wound care or podiatry outpatient ALEXIA on CKD (chronic kidney disease), stage III: Creatinine on admission 1.9 --> 1.4 today Nephrology on board Currently on Lasix IV 40mg BID, will transition to PO torsemide Continue monitor BMP Continue lasix while inpatient Nephrology had recommended changing to torsemide 40mg BID on discharge Chronic elevated troponin Acute on chronic systolic heart failure Elevated trops likely related to CKD and HFrEF Troponin 2442 on on admission, trending down to 2178, then 1905 Denies any chest pain ECHO showed Severe global hypokinesis of the LV with EF 25-30% Continue aspirin, Plavix, metoprolol Diabetes mellitus, type II: Glucose has been elevated Most recent hemoglobin A1c 7.6 on 05/06/22 Continue lantus and insulin sliding scale Continue monitor BG Morbid obesity BMI 43 DVT px : Hep sq Code status Full code Disposition Case management found placement to [facility] for SNF, but pt does not want to go yet Plan to discharge tomorrow after evaluating again by podiatry today Care coordinated with Dr. Orlando Admission and Anticipated Discharge Date Admission Date: June 12, 2022 Subjective Pt was seen and examined for follow up of L foot infection Sitting in the recliner with no acute distress He continues to refuse to be discharged to SNF today Patient is asking to speak to voting machine repairer Dr. Saenz to check his wound and provide reassurance before discharge Spoke to Dr. Saenz that will stop by later to check his wound Denies any fever, chills, lightheadedness, chest pain, SOB, N/V, abdominal pain, dysuria, diarrhea or constipation Review of Systems Review of Systems: At least ten systems reviewed and negative except as noted in the HPI. Physical Exam Physical Exam: General- No acute distress Head- atraumatic Eyes- PERRL, EOMI, ENT- oropharynx clear Neck- supple, no JVD Lungs- clear to auscultation Heart- regular rhythm; no murmur Abdomen- normal bowel sounds, soft, nontender Extremities- no calf tenderness, RLE stump, +Left leg edema with left foot dressing, no pus Neuro- alert, oriented x 3; PERRL, EOMI; no facial palsy; no dysarthria Skin- warm & dry Results & Data Results & Data ([facility]) Vital Signs (Past 12 Hours) Vital Signs Temp Pulse Resp BP Pulse Ox O2 Del Method 06/26/22 08:03 36.9 C 73 18 137/80 97 Room Air Laboratory Results Short CBC 06/26/22 Range/Units 09:51 WBC 6.02 (4.8-10.8) K/ul Hgb 12.4 L (14.0-18.0) g/dl Hct 38.9 L (40.1-51.0) % Plt Count 302 (130-400) K/uL BMP 06/26/22 09:51 Sodium 137 Potassium 4.4 Chloride 102 Carbon Dioxide 30 BUN 41 H Creatinine 1.44 H Glucose 195 H Calcium 9.8 Liver Function 06/26/22 Range/Units 09:51 Albumin 3.4 (3.4-5.0) gm/dl Diagnostic Findings Chest X-Ray 06/12/22 18:37 XR chest 1V portable CLINICAL HISTORY: Sepsis TECHNIQUE: Single frontal radiograph of the chest was obtained. Comparison: Comparison is made to chest radiograph 05/26/2019 FINDINGS: Exam is limited by underpenetration. Cardiomegaly is noted. Prominence and cephalization of the vasculature is seen. No evidence of pleural effusion or pneumothorax. IMPRESSION: Cardiomegaly and mild pulmonary edema. No evidence of pneumonia is seen. ACT 112: Negative or not required by law. Electronically signed by: Elliott Gonzales M.D. 06/12/2022 7:38 PM Venous Doppler Study 06/12/22 19:01 US venous doppler LE LT CLINICAL HISTORY: swelling TECHNIQUE: Right lower extremity real-time compression venous ultrasound with Color Doppler imaging. Utilizing real-time ultrasonic imaging multiple real time high-resolution ultrasonic images with compression and noncompression maneuvers of the deep venous system in addition to color doppler imaging were performed from the common femoral vein through the proximal calf veins. COMPARISON: None available at the time of this dictation. FINDINGS: Currently there is normal compressibility of the deep venous system from the common femoral vein through the proximal calf veins. Soft tissue edema is noted in the calf. Impression: No evidence of deep venous thrombus. ACT 112: Negative or not required by law. Electronically signed by: Elliott Gonzales M.D. 06/12/2022 8:29 PM Foot X-Ray 06/12/22 22:33 XR tibia fibula LT 2V, XR foot LT 2V HISTORY: 66 years-old Male swelling, hx fall acute pain of the left foot and lower leg status post fall COMPARISON: Doppler study of same day TECHNIQUE: 2 views of the left tibia and fibula with 2 views of the left foot FINDINGS: TIBIA/FIBULA: Diffuse soft tissue swelling with arterial calcifications. Osteoarthritis of the knee, moderate within the medial and patellofemoral compartments. No acute fracture, dislocation or osseous erosion. FOOT: Diffuse soft tissue swelling with arterial calcifications. Demineralized appearance of the bones. No acute fracture, dislocation or osseous erosion. Spurring of the calcaneus. Moderate multifocal osteoarthritis. IMPRESSION: Diffuse soft tissue swelling without acute fracture or dislocation identified. ACT 112: Negative or not required by law. The above report was generated using voice recognition software. It may contain grammatical, syntax or spelling errors. Electronically signed by: Familia Moya M.D. 06/13/2022 10:12 AM Tibia/Fibula X-Ray 06/12/22 22:33 XR tibia fibula LT 2V, XR foot LT 2V HISTORY: 66 years-old Male swelling, hx fall acute pain of the left foot and lower leg status post fall COMPARISON: Doppler study of same day TECHNIQUE: 2 views of the left tibia and fibula with 2 views of the left foot FINDINGS: TIBIA/FIBULA: Diffuse soft tissue swelling with arterial calcifications. Osteoarthritis of the knee, moderate within the medial and patellofemoral compartments. No acute fracture, dislocation or osseous erosion. FOOT: Diffuse soft tissue swelling with arterial calcifications. Demineralized appearance of the bones. No acute fracture, dislocation or osseous erosion. Spurring of the calcaneus. Moderate multifocal osteoarthritis. IMPRESSION: Diffuse soft tissue swelling without acute fracture or dislocation identified. ACT 112: Negative or not required by law. The above report was generated using voice recognition software. It may contain grammatical, syntax or spelling errors. Electronically signed by: Familia Moya M.D. 06/13/2022 10:12 AM Foot MRI 06/18/22 08:41 MRI OF THE LEFT FOREFOOT WITHOUT IV CONTRAST CLINICAL HISTORY: Infection. Charcot ankle. Diabetes. COMPARISON STUDY: Radiographs of the left foot dated 06/12/2022. TECHNIQUE: MRI of the left forefoot is performed utilizing various T1 and T2- weighted sequences in the axial, sagittal, and coronal planes. IV contrast was not administered for this examination. Examination is modestly degraded by motion artifact. FINDINGS: Marrow signal intensity is heterogeneous. There is no marrow edema or T1 signal abnormality identified in the forefoot typical for osteomyelitis. Degenerative changes at the first metatarsophalangeal joint and throughout the midfoot, greatest at the tarsometatarsal articulations. There is no MRI evidence of fracture. Diffuse superficial and deep soft tissue edema is seen throughout the forefoot. No organized fluid collection is seen to indicate abscess. Imaged portions of the plantar fascia are normal. There is evidence of a nonspecific myositis versus denervation of the regional musculature. The visualized flexor and extensor tendons are intact. IMPRESSION: 1. There is no MRI evidence of osteomyelitis of the left forefoot. 2. Diffuse soft tissue edema as above. Correlate clinically for evidence of cellulitis. 3. No organized/drainable fluid collection is seen to suggest abscess. Dictated: 06/18/2022 6:27 PM Transcribed: 06/18/2022 7:48 PM Bhavani [id number] KAEL_Maalishae Electronically signed by: Laureano Merlos M.D. 06/18/2022 9:19 PM
--- NOTE | 2022-06-26 17:24 | History & Physical Bridge Note ---
Date of Service June 26, 2022 History & Physical Bridge Note I have examined the patient for a right fourth necrotic toe, reviewed the History & Physical and in the interval since the performance of the History & Physical I have noted the following changes of clinical significance: no changes noted
[2022-06-26 19:49] LABS: Basophils # (auto) 0.05 K/uL (0-0.2); Basophils % (auto) 0.8 %; Eosinophils # (auto) 0.31 K/uL (0-0.50); Eosinophils % (auto) 4.7 %; Hematocrit (blood only) 38.2 % (40.1-51.0); Hemoglobin 12.1 g/dl (14.0-18.0); Immature Granulocytes # (auto) 0.01 K/uL (0.00-0.02); Immature Granulocytes % (auto) 0.2 %; Lymphocytes # (auto) 1.09 K/uL (1.2-3.4); Lymphocytes % (auto) 16.7 %; Mean Corpuscular Hemoglobin 28.3 pg (25.0-34.0); Mean Corpuscular Hgb Conc 31.7 g/dL (32.0-36.0); Mean Corpuscular Volume 89.3 fL (80.0-100.0); Mean Platelet Volume 10.4 fL (9.4-12.4); Monocytes % (auto) 10.7 %; Neutrophils # (auto) 4.38 K/uL (1.4-6.5); Neutrophils % (auto) 66.9 %; Platelet Count 308 K/uL (130-400); RDW Coefficient of Variation 15.5 % (11.5-14.5); RDW Standard Deviation 50.6 fL (36.4-46.3); Red Blood Count 4.28 M/uL (4.63-6.08); White Blood Count 6.54 K/ul (4.8-10.8)
--- NOTE | 2022-06-26 20:24 | Communication Note ---
Date of Service: June 26, 2022 Patient refusing heparin subcu because of transient epistaxis episode earlier. No headache symptoms currently as per RN. AP Transient epistaxis episode CBC now Hold antiplatelet Rx, heparin subcu for now
--- NOTE | 2022-06-26 21:52 | Orthopedic Progress Note ---
Date of Service June 26, 2022 Assessment & Plan (1) Diabetic foot infection: Plan: Patient seen, evaluated, and treated. Interdigital spaces well healed. Diabetic bullae to left foot and leg resolving. Early signs of retro calcaneal heel wound present. Off loading importance was discussed. Continue with spacers/ DSD applied to left leg and foot. Thank you for allowing me to participate in the care of this Patient. I have discussed seeing Patient for out Paitent care per Patient request. He will call office [phone] for office appointment. (2) Cellulitis: (3) Failure of outpatient treatment: (4) Leukocytosis: (5) History of right below knee amputation: (6) Diabetes mellitus, type II: Admission and Anticipated Discharge Date Admission Date: June 12, 2022 Subjective Patient seen at bedside in no distress. Patient to be discharged tomorrow to [facility]. He has no complaints but wishes to be evaluated prior to d ischarge. Review of Systems Review of Systems: All systems reviewed & are unremarkable except as noted in HPI & below Physical Exam ENMT: external ear and nose normal, oropharynx normal Neck: trachea midline, no thyromegaly Respiratory: normal respiratory effort, lungs clear to auscultation Skin: Left foot diabetic interdigital ulcers show excellent signs of healing. Left retrocalcaneal partial thickness heel wound limited to break through in skin. Left leg partial thickness wound limited to break down in skin.. Psychiatric: Orientation: oriented x 3 Results & Data ([facility]) Vital Signs (Past 12 Hours) Vital Signs Temp Pulse Resp BP Pulse Ox O2 Del Method 06/26/22 21:45 36.8 C 82 18 181/76 H 98 Room Air 06/26/22 15:35 37.0 C 66 18 124/75 96 Room Air (1) Cellulitis Laterality: left Site of cellulitis: extremity Site of cellulitis of extremity: lower extremity Qualified Code(s): L03.116 - Cellulitis of left lower limb (2) Leukocytosis Leukocytosis type: unspecified Qualified Code(s): D72.829 - Elevated white blood cell count, unspecified
[2022-06-27] MEDS: diphenhydrAMINE Capsule 25 MG CAP PO PRN (08:37)
[2022-06-27] MEDS: ISOSORBIDE MONO EXTENDED REL 30 MG TABCR PO SCH (08:38)
[2022-06-27] MEDS: METOPROLOL SUCC 25MG EXT REL TAB PO SCH (08:39)
[2022-06-27] MEDS: EUCERIN CR 120 GM JAR EXT SCH (08:39)
[2022-06-27 08:44] LABS: Basophils # (auto) 0.06 K/uL (0-0.2); Eosinophils % (auto) 6.7 %; Hematocrit (blood only) 39.1 % (40.1-51.0); Hemoglobin 12.5 g/dl (14.0-18.0); Immature Granulocytes # (auto) 0.02 K/uL (0.00-0.02); Immature Granulocytes % (auto) 0.3 %; Lymphocytes # (auto) 1.19 K/uL (1.2-3.4); Lymphocytes % (auto) 20.1 %; Mean Corpuscular Hemoglobin 28.5 pg (25.0-34.0); Mean Corpuscular Volume 89.3 fL (80.0-100.0); Mean Platelet Volume 10.2 fL (9.4-12.4); Monocytes # (auto) 0.68 K/uL (0.24-0.82); Monocytes % (auto) 11.5 %; Neutrophils # (auto) 3.58 K/uL (1.4-6.5); Neutrophils % (auto) 60.4 %; Platelet Count 304 K/uL (130-400); RDW Coefficient of Variation 15.5 % (11.5-14.5); RDW Standard Deviation 50.7 fL (36.4-46.3); Red Blood Count 4.38 M/uL (4.63-6.08); White Blood Count 5.93 K/ul (4.8-10.8)
[2022-06-27 09:08] LABS: Albumin Level 3.4 gm/dl (3.4-5.0); BUN Creatinine Ratio 30.8 (10-20); Calcium 9.8 mg/dl (8.5-10.1); Creatinine Clr Calc Pharmacy 80.6 ml/min; Est GFR (African American) 59.1 ml/min; Phosphorus 4.2 mg/dl (2.5-4.9); Potassium 4.5 mmol/L (3.5-5.1)
[2022-06-27] MEDS: INSULIN ASPART PER UNIT SC SCH (09:32)
[2022-06-27] MEDS: FUROSEMIDE 40 MG/4 ML VIAL IV SCH (09:33)
[2022-06-27] MEDS: LANTUS PER UNIT CHARGE SQ SCH (09:33)
[2022-06-27] MEDS: POLYETHYLENE (MIRALAX) 17 GM PACK PO SCH (10:09)
--- NOTE | 2022-06-27 11:14 | Discharge Summary ---
Date of Service June 27, 2022 Admission HPI Per Admitting Provider History obtained from patient and records. Medical history significant for chronic systolic heart failure (EF 25 to 29%, TTE 2018), CAD status post stent, PVD, chronic LBBB, HTN, DM 2 insulin requiring, CRI (baseline creatinine 1.3 -1.4), chronic anemia (new baseline of 13 from April 2022), past tobacco abuse. Last confinement May 2020 for left third finger infection status post amputation. 2 weeks ago, patient noted to have a wound on the left calf started with a blister. Wound improved on its own as per patient. Last week, patient noted to have wounds on the third and fifth toes of the left foot. Subsequent involvement of the left fourth toe which spread to the foot dorsal noted by home nurse. Serosanguineous [id number] drainage noted. Clindamycin prescribed by outpatient provider. Mechanical fall from a few days ago with some right leg discomfort. No headache, no syncope, no chest pain, no SOB. No fluid retention. Denies abdominal pain, black/bloody stools. Patient denies overt bleeding. Left foot swelling extending to the upper leg noted the last few days. Patient a little drowsy as per family. Patient brought to the ER for evaluation. IV Daptomycin administered at the ER. MEDICAL HISTORY: As above. SURGICAL HISTORY: RLE amputation, back surgery, finger amputation FAMILY HISTORY: Diabetes, heart disease. PERSONAL AND SOCIAL HISTORY: Past tobacco abuse, occasional EtOH intake, disabled, lives with son who acts as his caregiver. Admission Exam Per Admitting Provider GENERAL: Comfortable, morbidly obese, awake, no respiratory distress SKIN: Pallor, warm HEENT: Alopecia, pale palpebral conjunctivae, no ptosis, dry buccal mucosa NECK : Supple, short neck, no tenderness CHEST : Decreased breath sounds, no tenderness HEART : Diminished S1-S2, no obvious murmurs ABDOMEN: distention, nontender RECTAL : Refused EXTREMITIES : RLE stump, indurated swelling, bandaged left foot, extending to left lower leg. minimal left foot tenderness NEUROLOGIC : Coherent, no facial asymmetry, gait and stance not assessed Principal Diagnosis Diabetic foot infection Discharge Exam General- No acute distress Head- atraumatic Eyes- PERRL, EOMI, ENT- oropharynx clear Neck- supple, no JVD Lungs- clear to auscultation Heart- regular rhythm; no murmur Abdomen- normal bowel sounds, soft, nontender Extremities- no calf tenderness, RLE stump, +Left leg edema with left foot dressing, no pus Neuro- alert, oriented x 3; PERRL, EOMI; no facial palsy; no dysarthria Skin- warm & dry Discharge Data Allergies Allergy/AdvReac Type Severity Reaction Status Date / Time ceftriaxone Allergy Severe ANAPHYLAXIS Verified 06/12/22 21:00 lidocaine Allergy Severe ANAPHYLAXIS Verified 06/12/22 21:00 -BRADYCARDI A Consultations 06/12/22 19:37 ED Decision to Admit Stat 06/12/22 22:44 Consult Podiatry Routine 06/14/22 01:19 Consult Infectious Diseases Routine 06/15/22 08:05 Consult Nephrology Routine 06/27/22 09:35 Consult Patient Rep [Consult Patient Services] Routine Ordered Studies 06/12/22 19:01 US venous doppler LE LT Stat 06/18/22 08:41 MR foot LT w/o con Routine Hospital Course (1) Diabetic foot infection: (2) Failure of outpatient treatment: (3) Cellulitis: (4) Elevated troponin: (5) Heart failure: (6) Cardiomyopathy: (7) PVD (peripheral vascular disease): (8) Morbid obesity: (9) ALEXIA (acute kidney injury): (10) CKD (chronic kidney disease), stage III: (11) HTN (hypertension): Plan This is a 67yo M with PMH of chronic systolic heart failure (EF 25 to 29%, TTE 2018), CAD status post stent, PVD, chronic LBBB, HTN, DM 2 insulin requiring, CRI (baseline creatinine 1.3 -1.4), chronic anemia (new baseline of 13 from April 2022), past tobacco abuse who presents with diabetic foot wound after failed outpatient management with clindamycin. Foot xray showed Diffuse soft tissue swelling without acute fracture or dislocation identified. MRI L foot did not show osteomyelitis. Leukocytosis of 20k now resolved. Blood culture grew gram-positive cocci- coag negative staph not lugnensis Wound cx grew Alcaligensis faecalis and group B strep. Echo did not note any vegetation thrombus. Repeat blood cx without growth. Was initially on meropenem and then transitioned to po levofloxacin and clindamycin to complete treatment per infectious disease recommendation. Evaluated by Dr. Saenz of podiatry who recommends to continue waffle boot and weight bearing as tolerated. Continue wound care and podiatry on discharge. Nephrology consulted given ALEXIA with recommendation to transition diuretic from lasic to torsemide 40mg BID upon discharge. Cr back to baseline ~ 1.4. Chronic troponin noted with initial decompensated heart failure. No acute ECG changes. Echo showed Severe global hypokinesis of the LV with EF 25-30%. Continue aspirin, plavix, metoprolol and change to torsemide 40mg BID as above. Patient comfortable and hemodynamically stable at time of discharge to [facility]. Total Time Total Time Spent Total Time Spent (In Minutes): 60 Discharge Plan Discharge Items Patient Disposition: Transfer [facility] Reason For Visit: TROP ELEV, DM FOOT INFX Discharge Diagnosis: diabetic food infection Condition on Discharge: Fair Activity: Resume your previous activity Non-emergency contact: Primary Care Provider Call non-emergency contact if: you have any medication questions, your symptoms worsen, your pain is not controlled and you have a fever Follow-up/Referrals: Dion Snider MD [Primary Care Provider] - Diet: Carb Consistent or DM2 and Heart Healthy Addtl Attending Provider Instructions: You were admitted for diabetic foot infection after failed outpatient management Infectious disease recommended treatment with IV meropenem to oral levofloxacin and clindamycin and antibiotic course was completed yesterday on 06/[address] Saenz, wound is healing appropriately. Continue waffle boot and weight bearing as tolerated Continue wound care and podiatry follow-up upon discharge Nephrology consulted due to worsening renal function and volume overload. Changing to torsemide 40mg twice daily on discharge RECOMMENDATIONS FOR FOLLOW-UP: Call Dr. Saenz's office [phone] for office appointment OTHER INSTRUCTIONS: Seek medical attention if you have: * temperature above 101 * chest pain or trouble breathing * abdominal pain, nausea, vomiting * diarrhea, dark stools or bloody stools * any unanswered questions or concerns Call 530 if symptoms are severe. Please take good care of yourself. Call if you have any questions or problems. You can reach a [facility] hospitalist on duty at [facility] 24 hours a day by calling [phone]. Pending Studies at Discharge: No Stand-Alone Forms: [facility] Skilled Items Patient informed of condition?: Yes DNR: Yes Discharge Level of Care: Skilled Communicable Disease: No Discharge Prognosis: Stable Lines: None Urinary Catheter: No Medications and DC Order Prescriptions: New Dermacerin Cream 1 applic EXT BID Qty: 2568 0RF torsemide 40 mg tablet 40 mg PO BID Qty: 60 0RF Continued atorvastatin 40 mg tablet 40 mg PO DAILY Qty: 30 0RF metformin 500 mg tablet 500 mg PO BIDM Qty: 60 0RF isosorbide mononitrate 30 mg tablet extended release 24 hr 30 mg PO QAM Qty: 30 0RF clopidogrel 75 mg tablet 75 mg PO DAILY Qty: 30 0RF calcium carbonate-vitamin D3 [Calcium 600 + D(3)] 600 mg-5 mcg (200 unit) Tablet 2 tab PO DAILY Qty: 60 0RF acetaminophen [Tylenol Extra Strength] 500 mg Tablet 1,000 mg PO TID PRN (Reason: Fever Or Pain) Qty: 90 0RF docusate sodium 100 mg Capsule 100 mg PO BID PRN (Reason: Constipation) Qty: 60 0RF aspirin [Aspirin Childrens] 81 mg Tablet,Chewable 81 mg PO DAILY Qty: 30 0RF Rx Instructions: take with food metoprolol succinate 25 mg tablet extended release 24 hr 25 mg PO DAILY Qty: 30 0RF albuterol sulfate [Ventolin HFA] 90 mcg/actuation HFA aerosol inhaler 2 puff inhalation Q4 PRN (Reason: Wheezing) Qty: 6.7 0RF ondansetron 4 mg tablet,disintegrating 4 mg translingual Q8 PRN (Reason: Nausea) Qty: 14 0RF fluticasone propionate 50 mcg/actuation spray,suspension 2 spray INTRANASAL DAILY Qty: 16 0RF Novolin N Flexpen 100 unit/mL (3 mL) insulin pen 50 unit SUBCUT BID Qty: 15 0RF ergocalciferol (vitamin D2) [Vitamin D2] 50,000 unit Capsule 50,000 unit PO WK Qty: 4 0RF Changed Novolin R Flexpen 100 unit/mL (3 mL) insulin pen 1 sliding scale dose SUBCUT QID Qty: 15 0RF Rx Instructions: inject based on carb counting. use up to maximum of 120 units per day Discontinued furosemide 40 mg tablet 40 mg PO DAILY Rx Instructions: may take 1 extra tablet per day if needed for weight gain greater than 2 lbs Discharge Orders: Discharge Order (Routine); Ordered 06/27/22 Ordered By: Yuki Monge/Other Patient Handouts: Managing Type 2 Diabetes Admission Data Admit Date/Time: 06/12/22 22:37 Attending Provider: Richard Orlando Admit Provider: Manuelito Han Primary Care Provider: Dion Snider Other Providers: [facility] ; [facility] ; Richard Orlando ; Manuelito Han ; Jj Saenz ; Zachery Fitzgerald ; Jerardo Jeffers ; Dennis Doty I. ; Magen Munguia II ; Lala Kapadia ; Hussein Dunham ; Jonn Rodrigez ; Julia Choi ; Mumtaz Delgado ; Meg Vazquez I. ; Yuki Doty Other Interventions: Discharge Summary Assessment (RN) Last Done: 06/27/22 11:20
== END 2022-06-27 11:54 | DRG 637 ==
LOC: ED 16:45 → SUATTDRO 22:37 → 2S 22:37 → 3N 06-20 16:05